=== PATIENT | male | born 1935 | race Caucasian/White ===

== ENCOUNTER 2017-06-04 22:19 | Inpatient (IN) ==
[2017-06-04] MEDS ORDERED: Ipratropium/Albuterol Neb 3 ML IH ONE (22:31)
[2017-06-04] MEDS ORDERED: methylPREDNISolone 125 MG/2 ML VIAL IVP ONE (22:31)
--- NOTE | 2017-06-04 22:31 | Emergency Department Note ---
Disposition Clinical Impression: COPD exacerbation, Elevated troponin Disposition: Admitted As Inpatient Condition: Good [facility]: [facility] Care Provider[facility] - Forms: ED Satisfaction Letter Time of Disposition: 23:46 SOB HPI - General Chief Complaint: ED Shortness of Breath/Dyspnea Stated Complaint: shortness of breath Time Seen by Provider: 06/04/17 22:30 Source: patient Limitations: no limitations Nursing Notes Reviewed: Yes Vital Signs Reviewed: Yes - History of Present Illness 81-year-old male with history of COPD presents to the emergency department with a complaint of acute shortness of breath which started one hour prior to arrival. He was apparently seen here in the emergency department earlier today for the same symptoms. No increased cough or sputum production. No fever. He denies any chest pain. He states he just cannot breathe. He reports that it starts in his upper abdomen and then moved up into his chest making him short of breath. - Related Data Home Medications Medication Instructions Recorded Confirmed Aspirin 81 mg PO QAM 08/08/15 06/04/17 Metoprolol [Lopressor] 25 mg PO BID 08/08/15 06/04/17 Mometasone Furoate [Asmanex Hfa] 1 puff IH BID 08/08/15 06/04/17 Ipratropium/Albuterol Neb [Duoneb] 3 ml IH Q4H PRN 03/13/16 06/04/17 Acitretin [Soriatane] 25 mg PO DAILY 10/27/16 06/04/17 Olodaterol HCl [Striverdi Respimat] 2 puff IH DAILY 10/27/16 06/04/17 Terazosin HCl 2 mg PO HS 10/27/16 06/04/17 Atorvastatin [Lipitor] 10 mg PO HS 06/04/17 06/04/17 Benzocaine/Menthol [Sore Throat 1 each MM BID PRN 06/04/17 06/04/17 Lozenge] Benzonatate [Tessalon] 100 mg PO TID PRN 06/04/17 06/04/17 Clotrimazole [Mycelex Loren] 10 mg MM 5XD 06/04/17 DiphenhydraMINE [Benadryl] 25 mg PO Q8H PRN 06/04/17 06/04/17 LORazepam [Ativan] 0.5 mg PO BID PRN 06/04/17 06/04/17 Levalbuterol [Xopenex INH] 2 puff IH Q6H PRN 06/04/17 06/04/17 Lisinopril [Zestril] 20 mg PO DAILY 06/04/17 06/04/17 MethylPREDNISolone 4 mg PO PER PKG DI 06/04/17 [MethylPREDNISolone Dose Pack] Nitroglycerin [Nitrostat] 0.4 mg SL Q5M PRN 06/04/17 06/04/17 Ranitidine HCl [Zantac] 300 mg PO DAILY 06/04/17 06/04/17 Roflumilast [Daliresp] 500 mcg PO DAILY 06/04/17 06/04/17 Secukinumab [Cosentyx Pen] 300 mg SQ QMONTH 06/04/17 06/04/17 predniSONE [PredniSONE] 5 mg PO DAILY 06/04/17 06/04/17 predniSONE [PredniSONE] See Taper PO DAILY 06/04/17 06/04/17 Allergies Allergy/AdvReac Type Severity Reaction Status Date / Time budesonide [From Symbicort] Allergy Swelling Verified 06/04/17 22:26 of Lip/Tongue/Throat ceftriaxone Allergy See Verified 06/04/17 22:26 Comments codeine Allergy Rash Verified 06/04/17 22:26 levofloxacin Allergy Rash Verified 06/04/17 22:26 moxifloxacin Allergy Anaphylaxis Verified 06/04/17 22:26 tiotropium Allergy Swelling Verified 06/04/17 22:26 [From Spiriva with of HandiHaler] Lip/Tongue/Throat doxycycline AdvReac unable to Verified 06/04/17 22:26 take due to psoriasis medicine All systems ED: reviewed and negative except as stated. Constitutional: Denies: fever Cardiovascular: Denies: chest pain Respiratory: Reports: dyspnea, wheezes. Denies: hemoptysis Gastrointestinal: Reports: abdominal pain. Denies: nausea, vomiting, diarrhea, constipation, hematemesis, melena, hematochezia Genitourinary: Denies: dysuria, frequency Musculoskeletal: Denies: back pain Past Medical History - Past Medical History Medical history: Reports: COPD, hyperlipidemia, hypertension, peripheral artery disease Surgical history: Reports: vascular surgery Psychiatric history: Reports: no psych history - Social History Smoking Status: Former smoker Smokeless Tobacco Status: No Alcohol use: Reports: none Drug use: Reports: none Physical Exam - General Limitations: no limitations General appearance: alert, in distress (Mild respiratory distress) - Head Head exam: atraumatic, normocephalic, normal inspection - Eye Eye exam: Present: normal appearance, PERRL, EOMI. Absent: scleral icterus, conjunctival injection - ENT ENT exam: normal exam, normal oropharynx, mucous membranes moist, TM's normal bilaterally - Neck Neck exam: Present: normal inspection, full ROM, trachea midline. Absent: tenderness, meningismus, lymphadenopathy - Chest Chest inspection: Present: normal inspection, symmetric chest wall rise. Absent : tenderness - Respiratory Respiratory exam: Present: respiratory distress, wheezes (Diffuse tight bilateral expiratory and inspiratory wheezes noted.), accessory muscle use, prolonged expiratory phase - Cardiovascular Cardiovascular exam: Present: regular rate, normal rhythm, normal heart sounds - Abdominal Exam Abdominal exam: Present: soft, tenderness, normal bowel sounds. Absent: distention, guarding, rebound, rigidity Abdominal tenderness: Present: epigastrium, mild - Extremities Exam Extremities exam: Present: normal inspection, full ROM. Absent: tenderness, pedal edema - Back Exam Back exam: Present: normal inspection. Absent: CVA tenderness (R), CVA tenderness (L) - Neurological Exam Neurological exam: Present: alert, oriented X3. Absent: motor sensory deficit - Psychiatric Psychiatric exam: Present: normal affect, normal mood - Skin Skin exam: Present: warm, dry, intact, normal color. Absent: cyanosis, diaphoresis Course Course Narrative: 81-year-old male with history of COPD presents with shortness of breath for one hour prior to arrival. History of similar episodes in the past secondary to COPD. He uses home oxygen as needed. Was here earlier today. No chest pain. Symptoms improved with DuoNeb and Solu-Medrol however patient found to have an elevated troponin. We will admit to the hospitalist. - Consultations Consultation #1: The hospitalist, Dr. Van, was consulted and accepted admission of the patient. Time: 23:30 Vital Signs Temperature 97.9 F 06/04/17 22:23 Pulse Rate 76 06/04/17 22:23 Respiratory Rate 24 06/04/17 22:23 Blood Pressure 171/87 06/04/17 22:23 O2 Sat by Pulse Oximetry 90 06/04/17 22:23 Temperature 97.9 F 06/04/17 22:23 Pulse Rate 66 06/04/17 23:19 Respiratory Rate 22 06/04/17 23:19 Blood Pressure 131/75 06/04/17 23:19 O2 Sat by Pulse Oximetry 94 06/04/17 23:19 Oxygen Delivery Oxygen Delivery Nasal Cannula Shortness of Breath/Dyspnea - Medical Records Medical records reviewed: Yes I reviewed the patient's medical records. - Lab Data Lab results reviewed: Yes I reviewed the patient's lab results. Result diagrams: 06/04/17 22:40 06/04/17 22:40 Lab Results 06/04/17 06/04/17 06/04/17 Range/Units 22:40 22:40 22:40 WBC 9.3 (4.3-11.1) K/mcL RBC 4.31 (4.19-5.50) M/mcL Hgb 13.2 (12.9-16.9) g/dL Hct 40.3 (37.5-50.1) % MCV 93.5 (83.0-100.0) fL MCH 30.6 (28.0-33.3) pg MCHC 32.8 (31.6-35.5) g/dL RDW 14.6 H (11.5-14.5) % Plt Count 238 (140-400) K/mcL MPV 11.1 (9.4-12.4) fL Immature Gran % 0.5 (0-4) % Seg Neutrophils % 73.1 % Lymphocytes % 15.6 % Monocytes % 8.4 % Eosinophils % 1.6 % Basophils % 0.8 % Neutrophils # 6.8 (1.6-8.9) K/mcL Lymphocytes # 1.4 (0.6-4.6) K/mcL Monocytes # 0.8 (0.0-1.3) K/mcL Eosinophils # 0.2 (0.0-0.6) K/mcL Basophils # 0.1 (0.0-0.2) K/mcL Sodium 141 (136-145) mEq/L Potassium 3.7 (3.5-4.5) mEq/L Chloride 108 (98-109) mEq/L Carbon Dioxide 25 (19-29) mEq/L BUN 26 (8-26) mg/dL Creatinine 1.14 (0.72-1.25) mg/dL Est GFR ( Amer) > 60 (> 60) Est GFR (Non-Af Amer) > 60 (> 60) BUN/Creatinine Ratio 23 (6-26) Glucose 60 L (70-99) mg/dL Calculated Osmolality 295 (280-300) Calcium 9.6 (8.6-10.8) mg/dL Troponin I 0.07 H* (0-0.03) ng/mL B-Natriuretic Peptide (0-100) pg/mL 06/04/17 Range/Units 22:40 WBC (4.3-11.1) K/mcL RBC (4.19-5.50) M/mcL Hgb (12.9-16.9) g/dL Hct (37.5-50.1) % MCV (83.0-100.0) fL MCH (28.0-33.3) pg MCHC (31.6-35.5) g/dL RDW (11.5-14.5) % Plt Count (140-400) K/mcL MPV (9.4-12.4) fL Immature Gran % (0-4) % Seg Neutrophils % % Lymphocytes % % Monocytes % % Eosinophils % % Basophils % % Neutrophils # (1.6-8.9) K/mcL Lymphocytes # (0.6-4.6) K/mcL Monocytes # (0.0-1.3) K/mcL Eosinophils # (0.0-0.6) K/mcL Basophils # (0.0-0.2) K/mcL Sodium (136-145) mEq/L Potassium (3.5-4.5) mEq/L Chloride (98-109) mEq/L Carbon Dioxide (19-29) mEq/L BUN (8-26) mg/dL Creatinine (0.72-1.25) mg/dL Est GFR ( Amer) (> 60) Est GFR (Non-Af Amer) (> 60) BUN/Creatinine Ratio (6-26) Glucose (70-99) mg/dL Calculated Osmolality (280-300) Calcium (8.6-10.8) mg/dL Troponin I (0-0.03) ng/mL B-Natriuretic Peptide 85 (0-100) pg/mL - Radiology Data Radiology results reviewed: Yes I reviewed the patient's radiology results. Chest X-Ray 06/04/17 22:31 IMPRESSION: 1. Mild left basilar opacity, could represent atelectasis or consolidation. 2. Otherwise no significant change compared to prior study. 3. Stable mild diffuse interstitial prominence with calcified pleural plaques. D/ / 06/04/2017 23:24:36 Trevor Mccain MD / [email or web address] Interpreting Provider: Trevor Mccain MD - EKG Data EKG attestation: Yes I reviewed and interpreted this EKG. EKG shows normal: Reports: sinus rhythm Rate: Reports: normal Rhythm: Reports: NSR [place]/QRS: Reports: RBBB Interpretation: Reports: no acute changes, unchanged when compared to prior tracing (date) (06-04-17)
[2017-06-04 22:47] LABS: Basophils # 0.1 K/mcL (0.0-0.2); Basophils % 0.8 %; Eosinophils # 0.2 K/mcL (0.0-0.6); Eosinophils % 1.6 %; Hematocrit 40.3 % (37.5-50.1); Hemoglobin 13.2 g/dL (12.9-16.9); Immature Granulocytes % 0.5 % (0-4); Lymphocytes # 1.4 K/mcL (0.6-4.6); Lymphocytes % 15.6 %; Mean Corpuscular HGB Conc 32.8 g/dL (31.6-35.5); Mean Corpuscular Hemoglobin 30.6 pg (28.0-33.3); Mean Corpuscular Volume 93.5 fL (83.0-100.0); Mean Platelet Volume 11.1 fL (9.4-12.4); Monocytes # 0.8 K/mcL (0.0-1.3); Monocytes % 8.4 %; Neutrophils # 6.8 K/mcL (1.6-8.9); Platelet Count 238 K/mcL (140-400); Red Blood Count 4.31 M/mcL (4.19-5.50); Red Cell Distribution Width 14.6 % (11.5-14.5); Segmented Neutrophils % 73.1 %
[2017-06-04 23:01] LABS: BUN/Creatinine Ratio 23 (6-26); Blood Urea Nitrogen 26 mg/dL (8-26); Calcium 9.6 mg/dL (8.6-10.8); Carbon Dioxide 25 mEq/L (19-29); Chloride 108 mEq/L (98-109); Glucose 60 mg/dL (70-99); Osmolality,Calculated 295 (280-300); Potassium 3.7 mEq/L (3.5-4.5); Sodium 141 mEq/L (136-145); eGFR For African Americans > 60 (> 60); eGFR For Non-African Americans > 60 (> 60)
[2017-06-04] MEDS ORDERED: Aspirin 81 MG TAB.CHEW PO STA (23:18)
--- NOTE | 2017-06-05 01:18 | Internal Med History&Physical ---
Date of Encounter: 06/05/17 Time of Encounter: : Assessment and Plan (1) Acute exacerbation of chronic obstructive airways disease Current visit: Yes Status: Acute patient comes in with signs and symptoms concerning for acute worsening of his COPD, he has advanced condition requiring roflumilast and is on chronic oxygen therapy, we will manage with Abx, steroids and nebs (2) Elevated troponin Current visit: Yes Status: Acute he has no chest pain, EKG did not show any acute ischemic changes, this elevation in troponin is most likely related to demand ischemia from his COPD exacerbation, we will repeat in AM and follow symptoms, (3) Hypertension Current visit: Yes Status: Chronic will continue his home medications with BP monitoring Qualifiers: Hypertension type: essential hypertension Qualified Code(s): I10 - Essential (primary) hypertension (4) Psoriasis Current visit: Yes Status: Chronic hx of above and receive immunotherapy, we will defer to outpatient management Internal Medicine - H&P: HPI Chief complaint: shortness of breath Admitted From: Emergency Dept Plans for Post Hospital Care: Home History of present illness: Mr. Ho is a 81 year old male with a history of chronic respiratory failure arising from advanced COPD on 2L/min of home oxygen comes in with shortness of breath. He was in his usual state of health until on 06/04/17 when he had sudden worsening of dyspnea, with associated difficulty catching his breath. He also noticed that his baseline wheezing had gotten worse. His coughing spells and sputum production however remained the same. He denies fever, chills, nausea or vomiting or any prodrome of an illness. He denies any sick contacts. He is an active smoker. He reported to the ER of [place] where he received nebs and left after he felt better only to return because symptoms had persisted. Past Med Surg Social Fam HX - Past Medical History Source: patient, old records reviewed Medical history: COPD, hyperlipidemia, hypertension, peripheral artery disease, other (psoriasis, BPH) Psychiatric history: anxiety - Past Surgical History Surgical History: vascular surgery - Social History Smoking Status: Former smoker Smokeless Tobacco Status: No Alcohol use: none Drug use: none - Family History Brother Name: Seth Ho Living Status: Age at : 83 Cause of : heart problems Hx Family Cardiac Disorders: Yes (5x CABG) Hx Family Respiratory Disorders: No Hx Family Cancer: No Hx Family GI Disorders: No Hx Family Genitourinary Disorders: No Hx Family Endocrine Disorder: No Hx Family Musculoskeletal Disorders: Yes (Back problems) Hx Family Neuromuscular Disorders: No Hx Family Neurologic Disorders: No Hx Family HEENT Disorders: No Hx Family Autoimmune Disorders: No Hx Family Reproductive Disorders: No Hx Family Psychosocial Disorders: No Hx Family Medical Disorders: No Mother Adopted: No Living Status: Hx Family Cardiac Disorders: Yes Father Adopted: No Living Status: Hx Family Cardiac Disorders: Yes (pt unsure of etiology) Sister Adopted: No Living Status: Still Living Hx Family Cancer: Yes (bone ca in shoulder) Internal Medicine - H&P: Meds Aspirin 81 mg PO QAM 08/08/15 [History] Metoprolol [Lopressor] 25 mg PO BID 08/08/15 [History] Mometasone Furoate [Asmanex Hfa] 1 puff IH BID 08/08/15 [History] Ipratropium/Albuterol Neb [Duoneb] 3 ml IH Q4H PRN 03/13/16 [History] Acitretin [Soriatane] 25 mg PO DAILY 10/27/16 [History] Olodaterol HCl [Striverdi Respimat] 2 puff IH DAILY 10/27/16 [History] Terazosin HCl 2 mg PO HS 10/27/16 [History] Atorvastatin [Lipitor] 10 mg PO HS 06/04/17 [History] Benzocaine/Menthol [Sore Throat Lozenge] 1 each MM BID PRN 06/04/17 [History] Benzonatate [Tessalon] 100 mg PO TID PRN 06/04/17 [History] Clotrimazole [Mycelex Loren] 10 mg MM 5XD 06/04/17 [History] DiphenhydraMINE [Benadryl] 25 mg PO Q8H PRN 06/04/17 [History] LORazepam [Ativan] 0.5 mg PO BID PRN 06/04/17 [History] Levalbuterol [Xopenex INH] 2 puff IH Q6H PRN 06/04/17 [History] Lisinopril [Zestril] 20 mg PO DAILY 06/04/17 [History] MethylPREDNISolone [MethylPREDNISolone Dose Pack] 4 mg PO PER PKG DI 06/04/17 [ History] Nitroglycerin [Nitrostat] 0.4 mg SL Q5M PRN 06/04/17 [History] Ranitidine HCl [Zantac] 300 mg PO DAILY 06/04/17 [History] Roflumilast [Daliresp] 500 mcg PO DAILY 06/04/17 [History] Secukinumab [Cosentyx Pen] 300 mg SQ QMONTH 06/04/17 [History] predniSONE [PredniSONE] 5 mg PO DAILY 06/04/17 [History] predniSONE [PredniSONE] See Taper PO DAILY 06/04/17 [History] Allergies budesonide [From Symbicort] Allergy (Verified 06/04/17 22:26) Swelling of Lip/Tongue/Throat ceftriaxone Allergy (Verified 06/04/17 22:26) See Comments codeine Allergy (Verified 06/04/17 22:26) Rash levofloxacin Allergy (Verified 06/04/17 22:26) Rash moxifloxacin Allergy (Verified 06/04/17 22:26) Anaphylaxis tiotropium [From Spiriva with HandiHaler] Allergy (Verified 06/04/17 22:26) Swelling of Lip/Tongue/Throat doxycycline Adverse Reaction (Verified 06/04/17 22:26) unable to take due to psoriasis medicine All Systems PM: A 10-system review of systems was performed and is negative for pertinent findings except as documented above in the HPI. - Constitutional Vitals: Temp Pulse Resp BP Pulse Ox 98.2 F 67 18 172/78 94 06/05/17 00:56 06/05/17 00:56 06/05/17 00:56 06/05/17 00:56 06/05/17 00:56 GENERAL: Elderly male, who looks good for his age, small habitus, lying in bed , Alert, not acutely ill looking HEENT: NC/AT, EOMI, PERRLA, anicteric sclera, normal conjunctiva, supple, clear nares, moist mucous membranes, clear oropharynx, RESP: florid wheeze in all lung kemp with reduced AE, no crackles heard CARDIO: Normal hearts sounds; S1 and 2, RRR with no murmurs, no JVD, no ankle edema GI: Soft abdomen, full, no tenderness, no organomegaly felt, normal bowel sounds heard MUSCULOSKELETAL: grossly normal movements bilaterally, no deformities noted NEUROLOGIC: CN 2-12 intact grossly. No motor/sensory deficit appreciated, PSYCHIATRY: AAO x 3. Mood is fair, SKIN: extensive ecchymotic areas on the bilateral upper extremities and the chest, minimal plaque psoriatic lesion noted Internal Med - H&P Results - Labs CBC & Chem 7: 06/04/17 22:40 06/04/17 22:40 - EKG Data -: EKG Interpreted by Myself EKG shows normal: sinus rhythm - EKG Data Prior EKG available for review: yes When compared to previous EKG: there is no significant change - Diagnostic Studies Chest x-ray Status: image reviewed by me
[2017-06-05] MEDS ORDERED: Naloxone 0.4 MG/ML INJ IVP PRN (01:26)
[2017-06-05] MEDS ORDERED: Acetaminophen 325 MG TABLET PO PRN (01:26)
[2017-06-05] MEDS ORDERED: *HR* LORazepam 0.5 MG TABLET PO PRN (01:28)
[2017-06-05] MEDS ORDERED: Benzonatate 100 MG CAPSULE PO PRN (01:28)
[2017-06-05] MEDS ORDERED: Albuterol 2.5 MG/3 ML NEBULIZER IH PRN (01:29)
[2017-06-05] MEDS: Albuterol 2.5 MG/3 ML NEBULIZER IH SCH ×4 (03:16→15:00)
[2017-06-05] MEDS: Ipratropium Neb 0.5 MG NEBULIZER IH SCH ×4 (03:16→15:00)
[2017-06-05] MEDS ORDERED: *HR* OxyCODONE Immed Rel 5 MG TABLET PO STA (04:41)
[2017-06-05 04:51] LABS: BUN/Creatinine Ratio 24 (6-26); Blood Urea Nitrogen 27 mg/dL (8-26); Calcium 9.5 mg/dL (8.6-10.8); Carbon Dioxide 26 mEq/L (19-29); Chloride 107 mEq/L (98-109); Glucose 165 mg/dL (70-99); Magnesium 1.7 mg/dL (1.6-2.6); Osmolality,Calculated 301 (280-300); Phosphorous 2.4 mg/dL (2.3-4.7); Potassium 3.8 mEq/L (3.5-4.5); Sodium 141 mEq/L (136-145); eGFR For African Americans > 60 (> 60); eGFR For Non-African Americans > 60 (> 60)
[2017-06-05] MEDS ORDERED: MethylPREDNISolone 40 MG/ML VIAL IVP SCH (06:00)
[2017-06-05] MEDS ORDERED: *HR* Enoxaparin 40 MG/0.4 ML SYRINGE SQ SCH (06:00)
[2017-06-05] MEDS ORDERED: Famotidine 20 MG TABLET PO SCH (09:00)
[2017-06-05] MEDS ORDERED: Azithromycin 250 MG TABLET PO SCH (09:00)
[2017-06-05] MEDS ORDERED: ACITRETIN 25 MG PO SCH (09:00)
[2017-06-05] MEDS ORDERED: Lisinopril 20 MG TABLET PO SCH (09:00)
[2017-06-05] MEDS ORDERED: (Roflumilast [Daliresp] 500 MCG) PO SCH (09:00)
[2017-06-05] MEDS ORDERED: Aspirin 81 MG TAB.CHEW PO SCH (09:00)
--- NOTE | 2017-06-05 10:11 | Internal Med Progress Note ---
Date of Encounter: 06/05/17 Time of Encounter: 10:08 - Assessment and plan (1) Acute bronchitis Current Visit: Yes Status: Acute Qualifiers: Qualified Code(s): J20.9 - Acute bronchitis, unspecified (2) Troponin I above reference range Current Visit: Yes Status: Acute (3) Acute exacerbation of chronic obstructive airways disease Current Visit: Yes Status: Acute (4) DVT prophylaxis Current Visit: No Status: Acute (5) Hypertension Current Visit: No Status: Chronic Qualifiers: Qualified Code(s): I10 - Essential (primary) hypertension - Subjective Interval history: Mr. eNno Ho is an 81-year-old male presented with acute exacerbation of COPD and bronchitis. However troponin are noted elevated. Echocardiogram ordered. Patient is on aspirin. He will be continued on IV Zaroxolyn and IV steroid treatment. Patient was seen today. He denies any christiano chest pain however the reason he came in was because he felt a sensation in his throat and later in the epigastrium and all over the substernal area.. Breathing rankin he feels much better now and denies any complaint. He was a drinker and smoker in his days. For several years he has not done either. - Constitutional Vitals: Temp Pulse Resp BP Pulse Ox 97.7 F 82 16 132/73 98 06/05/17 07:00 06/05/17 07:00 06/05/17 09:52 06/05/17 07:00 06/05/17 09:52 - Head Head exam: Present: atraumatic, normocephalic - Eye Eye exam: Present: PERRL, conjuntiva pink, sclera anicteric Pupils: Present: PERRL - Neck Neck exam general surgery: Present: supple, trachea midline. Absent: lymphadenopathy - Respiratory Respiratory exam: Present: decreased breath sounds. Absent: accessory muscle use, rales, rhonchi, wheezes Additional comments: Breath sounds are shallow but no significant wheezing rales or rub. - Cardiovascular Cardiovascular exam: Present: RRR, +S1, +S2. Absent: diastolic murmur, gallop, rubs, systolic murmur - GI/Abdominal GI/Abdominal exam: Present: normal bowel sounds, soft, no peritoneal signs. Absent: distended, tenderness - Extremities Exam Extremities exam: Present: pedal edema, warm, radial pulses palpable and symetrical. Absent: calf tenderness, cyanotic - Neurological Exam Neurological exam: Present: CN II-XII intact, oriented X3, no focal deficits. Absent: pronater drift, facial droop, speech deficit - Skin Skin exam: Present: dry, intact Internal Medicine: Result - Labs CBC & Chem 7: 06/04/17 22:40 06/05/17 04:13 Labs: BMP 06/05/17 04:13 Sodium 141 Potassium 3.8 Chloride 107 Carbon Dioxide 26 BUN 27 H Creatinine 1.11 Glucose 165 H Calcium 9.5 Cardiac Enzymes 06/05/17 Range/Units 04:13 Troponin I 0.05 H* (0-0.03) ng/mL Consult Discharge Plan - Plan [facility]errals: [facility] [Primary Care Provider] -
[2017-06-05 15:35] VITALS: BP 147/79
--- NOTE | 2017-06-07 10:09 | Electrocardiograph Report ---
[place] [id number] Test Date: 2017-06-04 Pat Name: Tanner Ho Department: 102 Room: 3B43 Gender: M [employer]: Roberto : 1935 Requested By: Sánchez Fried Order Number: [id number] Reading MD: Jones Stewart MD Measurements Intervals [place] Rate: 68 P: 68 AL: 160 QRS: 39 QRSD: 148 T: 30 QT: 393 QTc: 410 Interpretive Statements SINUS RHYTHM RIGHT BUNDLE BRANCH BLOCK Electronically Signed On 06-07-2017 10:08:04 EDT by Jones Stewart MD
== END 2017-06-05 16:30 | disposition left against medical advice (07) | DRG 191 ==
LOC: EDBD → EMEROO 22:19 → 3BNU 22:19
PROVIDERS: ADMIT Internal Medicine Endocrinology, Diabetes & Metabolism; ATTEND Registered Nurse

== ENCOUNTER 2017-11-20 11:24 | Inpatient (IN) ==
[2017-11-20] MEDS ORDERED: methylPREDNISolone 125 MG/2 ML VIAL IVP ONE (12:02)
[2017-11-20] MEDS ORDERED: Albuterol 2.5 MG/3 ML NEBULIZER IH ONE (12:03)
--- NOTE | 2017-11-20 12:09 | Emergency Department Note ---
Disposition Clinical Impression: Acute exacerbation of chronic obstructive airways disease, HCAP (healthcare- associated pneumonia) Disposition: Admitted As Inpatient Condition: Good [facility] - Time of Disposition: 14:01 General Adult HPI - General Chief complaint: ED Shortness of Breath/Dyspnea Stated complaint: TILA,Bi-lateral leg swelling,cough,ABD Pain Time Seen by Provider: 11/20/17 11:38 Source: patient Limitations: no limitations Nursing Notes Reviewed: Yes Vital Signs Reviewed: Yes - History of Present Illness HPI Narrative: 82-year-old male who reports onset of shortness of breath with wheezing starting earlier this morning. He has a long history of COPD. He also reports history of lung cancer but he has opted not to do chemotherapy or radiation. Due to significant psoriasis and his COPD he has been on multiple steroids in the past and just recently went off steroids a couple of days ago. Due to the steroids he has had thrush which is almost cleared up. He denies any chest pain. He denies any cardiac history. He denies doing any breathing treatments at home because he said he was too short of breath. Radiation: non-radiation Pain Scale: 0 Consistency: constant Improves with: nothing Worsens with: nothing Associated symptoms: Reports: denies other symptoms Treatments Prior to Arrival: none - Related Data Home Medications Medication Instructions Recorded Confirmed Aspirin 81 mg PO QAM 08/08/15 11/20/17 Metoprolol [Lopressor] 25 mg PO BID 08/08/15 11/20/17 Mometasone Furoate [Asmanex Hfa] 1 puff IH BID 08/08/15 11/20/17 Ipratropium/Albuterol Neb [Duoneb] 3 ml IH Q4H PRN 03/13/16 11/20/17 Olodaterol HCl [Striverdi Respimat] 2 puff IH DAILY 10/27/16 11/20/17 Terazosin HCl 2 mg PO HS 10/27/16 11/20/17 Lisinopril [Zestril] 20 mg PO DAILY 06/04/17 11/20/17 Nitroglycerin [Nitrostat] 0.4 mg SL Q5M PRN 06/04/17 11/20/17 Roflumilast [Daliresp] 500 mcg PO DAILY 06/04/17 11/20/17 Secukinumab [Cosentyx Pen] 300 mg SQ QMONTH 06/04/17 11/20/17 Albuterol Sulfate [Albuterol 2 puff IH Q6HR PRN 07/23/17 11/20/17 Inhaler] Tamsulosin [Flomax] 0.4 mg PO DAILY 07/23/17 11/20/17 Previous Rx's Medication Instructions Recorded predniSONE [PredniSONE] 5 mg PO DAILY 20 Days tablet 09/20/17 Allergies Allergy/AdvReac Type Severity Reaction Status Date / Time budesonide [From Symbicort] Allergy Swelling Verified 06/04/17 22:26 of Lip/Tongue/Throat ceftriaxone Allergy See Verified 06/04/17 22:26 Comments codeine Allergy Rash Verified 06/04/17 22:26 levofloxacin Allergy Rash Verified 06/04/17 22:26 moxifloxacin Allergy Anaphylaxis Verified 06/04/17 22:26 tiotropium Allergy Swelling Verified 06/04/17 22:26 [From Spiriva with of HandiHaler] Lip/Tongue/Throat doxycycline AdvReac unable to Verified 06/04/17 22:26 take due to psoriasis medicine All systems ED: reviewed and negative except as stated. Constitutional: Denies: fever Cardiovascular: Denies: chest pain Respiratory: Reports: cough, dyspnea Gastrointestinal: Denies: abdominal pain Musculoskeletal: Denies: back pain Neurological: Denies: headache Past Medical History - Past Medical History Medical history: Reports: asthma, cancer, COPD, GERD, hyperlipidemia, hypertension, peripheral artery disease, other Surgical history: Reports: vascular surgery Psychiatric history: Reports: anxiety - Social History Smoking Status: Former smoker Smokeless Tobacco Status: No Alcohol use: Reports: none Drug use: Reports: none Physical Exam - General Limitations: no limitations General appearance: alert, in no apparent distress - Head Head exam: atraumatic - Eye Eye exam: Present: normal appearance, PERRL - ENT ENT exam: normal exam, normal oropharynx - Neck Neck exam: Present: normal inspection - Chest Chest inspection: Present: normal inspection - Respiratory Respiratory exam: Present: other (Significant expiratory wheezes present. No respiratory distress). Absent: accessory muscle use - Cardiovascular Cardiovascular exam: Present: regular rate, normal rhythm - Abdominal Exam Abdominal exam: Present: soft, Non-Tender - Extremities Exam Extremities exam: Present: normal inspection - Neurological Exam Neurological exam: Present: alert, oriented X3 - Skin Skin exam: Present: warm, dry Course Course Narrative: He feels significant relief after steroids and breathing treatments. However he had a admission just 2 months ago and has pneumonia seen on his chest x-ray. Due to this only to treat him for healthcare associated pneumonia with vancomycin, Zosyn, Levaquin. He previously did have Zosyn and tolerated it. His EKG shows a single change in only lead V2. No other leads have any significant changes. He also does not have any chest pain negative troponin. We will admit for COPD exacerbation with pneumonia Vital Signs Temperature 98.1 F 11/20/17 11:28 Pulse Rate 67 11/20/17 11:28 Respiratory Rate 18 11/20/17 11:28 Blood Pressure 135/81 11/20/17 11:28 O2 Sat by Pulse Oximetry 97 11/20/17 11:28 Temperature 98.1 F 11/20/17 11:28 Pulse Rate 67 11/20/17 11:28 Respiratory Rate 20 11/20/17 13:40 Blood Pressure 135/81 11/20/17 11:28 O2 Sat by Pulse Oximetry 97 11/20/17 13:40 Oxygen Delivery Oxygen Delivery Room Air Medical Decision Making - Medical Records Medical records reviewed: Yes I reviewed the patient's medical records. - Lab Data Lab results reviewed: Yes I reviewed the patient's lab results. Result diagrams: 11/20/17 12:31 11/20/17 12:31 Lab Results 11/20/17 11/20/17 11/20/17 Range/Units 12:31 12:31 12:31 WBC 9.8 (4.3-11.1) K/mcL RBC 3.72 L (4.19-5.50) M/mcL Hgb 11.2 L (12.9-16.9) g/dL Hct 35.5 L (37.5-50.1) % MCV 95.4 (83.0-100.0) fL MCH 30.1 (28.0-33.3) pg MCHC 31.5 L (31.6-35.5) g/dL RDW 15.0 H (11.5-14.5) % Plt Count 254 (140-400) K/mcL MPV 11.7 (9.4-12.4) fL Immature Gran % 1.0 (0-4) % Seg Neutrophils % 77.5 % Lymphocytes % 11.3 % Monocytes % 7.5 % Eosinophils % 2.2 % Basophils % 0.5 % Neutrophils # 7.6 (1.6-8.9) K/mcL Lymphocytes # 1.1 (0.6-4.6) K/mcL Monocytes # 0.7 (0.0-1.3) K/mcL Eosinophils # 0.2 (0.0-0.6) K/mcL Basophils # 0.1 (0.0-0.2) K/mcL Sodium 142 (136-145) mEq/L Potassium 3.6 (3.5-5.1) mEq/L Chloride 108 H (98-107) mEq/L Carbon Dioxide 30 H (23-29) mEq/L BUN 30 H (8-23) mg/dL Creatinine 0.86 (0.70-1.30) mg/dL Est GFR ( Amer) > 60 (> 60) Est GFR (Non-Af Amer) > 60 (> 60) BUN/Creatinine Ratio 35 H (6-26) Glucose 87 (70-105) mg/dL Calculated Osmolality 300 (280-300) Lactic Acid (0.5-2.2) mmol/L Calcium 8.9 (8.6-10.3) mg/dL Troponin I 0.03 (< 0.04) ng/mL 11/20/17 Range/Units 12:31 WBC (4.3-11.1) K/mcL RBC (4.19-5.50) M/mcL Hgb (12.9-16.9) g/dL Hct (37.5-50.1) % MCV (83.0-100.0) fL MCH (28.0-33.3) pg MCHC (31.6-35.5) g/dL RDW (11.5-14.5) % Plt Count (140-400) K/mcL MPV (9.4-12.4) fL Immature Gran % (0-4) % Seg Neutrophils % % Lymphocytes % % Monocytes % % Eosinophils % % Basophils % % Neutrophils # (1.6-8.9) K/mcL Lymphocytes # (0.6-4.6) K/mcL Monocytes # (0.0-1.3) K/mcL Eosinophils # (0.0-0.6) K/mcL Basophils # (0.0-0.2) K/mcL Sodium (136-145) mEq/L Potassium (3.5-5.1) mEq/L Chloride (98-107) mEq/L Carbon Dioxide (23-29) mEq/L BUN (8-23) mg/dL Creatinine (0.70-1.30) mg/dL Est GFR ( Amer) (> 60) Est GFR (Non-Af Amer) (> 60) BUN/Creatinine Ratio (6-26) Glucose (70-105) mg/dL Calculated Osmolality (280-300) Lactic Acid 1.1 (0.5-2.2) mmol/L Calcium (8.6-10.3) mg/dL Troponin I (< 0.04) ng/mL - Radiology Data Radiology results reviewed: Yes I reviewed the patient's radiology results. - EKG Data EKG #1 EKG attestation: Yes I reviewed and interpreted this EKG. EKG shows normal: sinus rhythm Rhythm: NSR Leverett/QRS: RBBB When compared to previous EKG there are: no significant changes Interpretation: no acute changes Attestation Statement - Attestation Attestation: I, Ricky Martinez DO, examined this patient [id number] and my medical decision-making was reviewed with (Dr. Xavier Bateman, Resident Physician. I agree with the documented findings, disposition and treatment plan as described except to the extent set forth below. Please see my progress notes for details. 82-year-old male presents to emergency room for evaluation of cough congestion and discomfort. Vital signs on presentation were unremarkable. Patient is afebrile. He does have a long-standing history of COPD. Symptomatically treatment for COPD exacerbation started with breathing treatments and steroids secondary to diffuse wheezing. Patient does have some accessory muscle use. Denies any productive sputum or fever but he has been coughing more over the last several days. Head is atraumatic pupils are nonreactive initial muscles are intact. Lungs are diffusely wheezy. heart is regular abdomen is soft nontender nondistended no guarding no rigidity. No peritoneal symptoms over this time. Patient is resting in the bed at this time. Breathing treatments medications given. CT of the chest show what appears to be multifocal pneumonia. Abdominal examination is otherwise unremarkable. Patient does have a mildly elevated white blood cell count. He will be admitted for COPD exacerbation with what appears to be bilateral pneumonia. Antibiotics started this time for healthcare acquired pneumonia. Evaluation completed hospitals contacted. Otherwise his workup and evaluation are unremarkable. EKG shows chronic abnormalities compared to multiple EKGs over the last year. See detailed documentation of physical exam, medical intervention, medical decision- making and disposition in the resident physician's note
[2017-11-20 12:44] LABS: Basophils # 0.1 K/mcL (0.0-0.2); Basophils % 0.5 %; Eosinophils # 0.2 K/mcL (0.0-0.6); Eosinophils % 2.2 %; Hematocrit 35.5 % (37.5-50.1); Hemoglobin 11.2 g/dL (12.9-16.9); Lymphocytes # 1.1 K/mcL (0.6-4.6); Lymphocytes % 11.3 %; Mean Corpuscular HGB Conc 31.5 g/dL (31.6-35.5); Mean Corpuscular Hemoglobin 30.1 pg (28.0-33.3); Mean Corpuscular Volume 95.4 fL (83.0-100.0); Mean Platelet Volume 11.7 fL (9.4-12.4); Monocytes # 0.7 K/mcL (0.0-1.3); Monocytes % 7.5 %; Neutrophils # 7.6 K/mcL (1.6-8.9); Platelet Count 254 K/mcL (140-400); Red Blood Count 3.72 M/mcL (4.19-5.50); Segmented Neutrophils % 77.5 %
[2017-11-20 12:58] LABS: BUN/Creatinine Ratio 35 (6-26); Blood Urea Nitrogen 30 mg/dL (8-23); Calcium 8.9 mg/dL (8.6-10.3); Carbon Dioxide 30 mEq/L (23-29); Chloride 108 mEq/L (98-107); Glucose 87 mg/dL (70-105); Osmolality,Calculated 300 (280-300); Potassium 3.6 mEq/L (3.5-5.1); Sodium 142 mEq/L (136-145); eGFR For African Americans > 60 (> 60); eGFR For Non-African Americans > 60 (> 60)
[2017-11-20] MEDS ORDERED: Piperacillin/Tazobactam 3.375 GM in Water for inj. (sterile) 20 ML IVP ONE (13:29)
[2017-11-20] MEDS ORDERED: Vancomycin 1,000 MG in D5% in Water 250 ML IVPB ONE (13:29)
[2017-11-20] MEDS ORDERED: Levofloxacin 750 MG/150 ML 750 MG/150 ML BAG IVPB ONE (13:34)
[2017-11-20] MEDS ORDERED: Ondansetron 4 MG/2 ML VIAL IVP PRN (14:51)
[2017-11-20] MEDS ORDERED: Acetaminophen 325 MG TABLET PO PRN (14:51)
[2017-11-20] MEDS ORDERED: Naloxone 0.4 MG/ML INJ IVP PRN (14:56)
[2017-11-20] MEDS ORDERED: Vancomycin 1,000 MG in D5% in Water 250 ML IVPB SCH (15:00)
[2017-11-20] MEDS ORDERED: Nitroglycerin 0.4 MG TAB.SUBL SL PRN (15:03)
--- NOTE | 2017-11-20 15:11 | Internal Med History&Physical ---
Date of Encounter: 11/20/17 Time of Encounter: 14:00 Assessment and Plan (1) Acute exacerbation of chronic obstructive airways disease Current visit: Yes Status: Acute Acute exacerbation of COPD currently complicated by HCAP. Pt. reports chronic SOB d/t COPD, but dyspnea became worse this morning at 8:15 a.m. Pt. reports home O2 use but denies BiPap or CPAP use. Supplemental o2 w/titration and SpO2 monitoring. DuoNebs Q6 scheduled. Solumedrol 40 mg Q8. Continuous cardiac telemetry. Pt. to be monitored closely for signs of increasing infection and/or respiratory distress d/t dual respiratory dx. Pt. discussed w/Dr. Gonzáles who agrees w/plan of care. Pt. is at high risk for further morbidity, infection, and respiratory distress based on current exacerbation of COPD complicated by HCAP. Inpatient. (2) HCAP (healthcare-associated pneumonia) Current visit: Yes Status: Acute Acute HCAP. Pt. was admitted to hospital 2 months ago. Pt. allergic to levaquin. IVPB vancomycin and Zosyn administered in the ED. Will continue IVPB Zosyn 3.375 gm Q8 and vancomycin w/pharmacy dosing for infection coverage. Blood cultures x2. Sputum culture. Legionella and strep pneumoniae antigens ordered. Supplemental O2 w/titration and SpO2 monitoring. DuoNebs Q6 scheduled. Mucinex DM for cough. Patient does not currently meet sepsis criteria. Initial lactic acid 1.1. Will adjust abx coverage based on culture results. Monitor pt. and f/u labs. (3) Shortness of breath Current visit: Yes Status: Chronic Acute on chronic SOB/dyspnea related to long-term COPD dx, current exacerbation of COPD, and pneumonia dx. Supplemental O2 w/titration and SpO2 monitoring. DuoNebs Q6 scheduled. Will continue pts. inhalers. Mucinex DM for cough. (4) Anemia Current visit: Yes Status: Chronic Hx of chronic anemia. Pts. current Hgb is 11.2 and Hct is 35.5 which is at or above his recent baseline. Pt. denies unusual bleeding. H/H in a.m. labs. Qualifiers: Anemia type: unspecified type Qualified Code(s): D64.9 - Anemia, unspecified (5) GERD (gastroesophageal reflux disease) Current visit: No Status: Chronic Hx of chronic GERD. Pt. reports nausea and abdominal pain. IVP Zofran 4 mg Q8 PRN. IVP Protonix 40 mg daily. Qualifiers: Esophagitis presence: esophagitis presence not specified Qualified Code(s) : K21.9 - Gastro-esophageal reflux disease without esophagitis (6) HTN (hypertension) Current visit: Yes Status: Chronic Hx of chronic HTN. Monitor pt. and VS. continue patient's terazosin, lisinopril , and metoprolol. Qualifiers: Hypertension type: essential hypertension Qualified Code(s): I10 - Essential (primary) hypertension (7) HLD (hyperlipidemia) Current visit: Yes Status: Chronic Hx of chronic HLD. Lipid panel in a.m. labs. Pt. reports he is not taking statin currently. Will add Lipitor if warranted by lipid panel results. Qualifiers: Hyperlipidemia type: pure hypercholesterolemia Qualified Code(s): E78.00 - Pure hypercholesterolemia, unspecified; E78.0 - Pure hypercholesterolemia (8) Lung cancer Current visit: Yes Status: Chronic Hx of lung cancer. Pt. states that he decided not to take chemotherapy or radiation tx. Pt. was a long-term smoker and states he began when in the [place], smoked 1 PPD, and quit 7 years ago. Qualifiers: Laterality: unspecified laterality Lung location: unspecified part of lung Qualified Code(s): C34.90 - Malignant neoplasm of unspecified part of unspecified bronchus or lung (9) DVT prophylaxis Current visit: Yes Status: Acute Heparin 5,000 units SQ Q8 for DVT prophylaxis. Monitor pt. for signs of bleeding. Internal Medicine - H&P: HPI Chief complaint: SOB/Dyspnea Admitted From: Emergency Dept Plans for Post Hospital Care: Home History of present illness: Mr. Ho is a 82 year old male with medical hx of asthma, lung cancer for which she has chosen not to take any current chemotherapy or radiation, COPD, GERD, HLD, HTN, and PAD reports from the ED with chief complaint of shortness of breath and dyspnea since 8:15 AM this morning. Patient states he normally uses O2 when necessary at home at night but had to use his oxygen more frequently today. Patient also reports cough with sputum production, abdominal pain w/nausea, and bilateral pedal edema. Patient denies recent illness, fever , chills, vomiting, headache, changes in vision, chest pain, palpitations, unusual bleeding, back pain, dizziness, lightheadedness, weakness, numbness, tingling, pre-syncope, or syncope. Past Med Surg Social Fam HX - Past Medical History Source: patient, old records reviewed Medical history: asthma, cancer (Lung cancer. Pt. reports he decided not to take chemotherapy or radiation tx.), COPD, GERD, hyperlipidemia, hypertension, peripheral artery disease, other Psychiatric history: anxiety - Past Surgical History Surgical History: vascular surgery - Social History Smoking Status: Former smoker Packs per day: 1 PPD - Reports quitting 7 years ago Smokeless Tobacco Status: No Alcohol use: none Drug use: none Current living situation: Home Activity Level: Uses cane/walker Recent Out of Country Travel Within the Last 8 Weeks: No Exposure or Possible Exposure to Illness During Travel: No - Family History Brother Race: Family Member Ethnicity: Non- Living Status: Age at : 83 Cause of : CAD Hx Family Cardiac Disorders: Yes (5x CABG, CAD, HTN, HLD) Mother Adopted: No Race: Family Member Ethnicity: Non- Living Status: Age at : 42 Cause of : CHF Hx Family Cardiac Disorders: Yes (CHF) Father Adopted: No Race: Family Member Ethnicity: Non- Living Status: Age at : 88 Cause of : Stroke Hx Family Cardiac Disorders: Yes (Stroke) Sister Adopted: No Race: Family Member Ethnicity: Non- Living Status: Age at : 79 Cause of : Cancer (Melanoma) Hx Family Cancer: Yes (Melanoma) Internal Medicine - H&P: Meds Aspirin 81 mg PO QAM 08/08/15 [History] Metoprolol [Lopressor] 25 mg PO BID 08/08/15 [History] Mometasone Furoate [Asmanex Hfa] 1 puff IH BID 08/08/15 [History] Ipratropium/Albuterol Neb [Duoneb] 3 ml IH Q4H PRN 03/13/16 [History] Olodaterol HCl [Striverdi Respimat] 2 puff IH DAILY 10/27/16 [History] Terazosin HCl 2 mg PO HS 10/27/16 [History] Lisinopril [Zestril] 20 mg PO DAILY 06/04/17 [History] Nitroglycerin [Nitrostat] 0.4 mg SL Q5M PRN 06/04/17 [History] Roflumilast [Daliresp] 500 mcg PO DAILY 06/04/17 [History] Secukinumab [Cosentyx Pen] 300 mg SQ QMONTH 06/04/17 [History] Albuterol Sulfate [Albuterol Inhaler] 2 puff IH Q6HR PRN 07/23/17 [History] Tamsulosin [Flomax] 0.4 mg PO DAILY 07/23/17 [History] predniSONE [PredniSONE] 5 mg PO DAILY 20 Days tablet 09/20/17 [Rx] 3 Allergy/AdvReac Type Severity Reaction Status Date / Time budesonide [From Symbicort] Allergy Swelling Verified 06/04/17 22:26 of Lip/Tongue/Throat ceftriaxone Allergy See Verified 06/04/17 22:26 Comments codeine Allergy Rash Verified 06/04/17 22:26 levofloxacin Allergy Rash Verified 06/04/17 22:26 moxifloxacin Allergy Anaphylaxis Verified 06/04/17 22:26 tiotropium Allergy Swelling Verified 06/04/17 22:26 [From Spiriva with of HandiHaler] Lip/Tongue/Throat doxycycline AdvReac unable to Verified 06/04/17 22:26 take due to psoriasis medicine All Systems PM: A 10-system review of systems was performed and is negative for pertinent findings except as documented above in the HPI. - Constitutional Constitutional: no chills, no fever(s), no night sweats - EENT Eyes: no change in vision, no discharge, no pain, no photophobia Ears: no ear discharge, no ear pain, no tinnitus Nose, mouth and throat: no dysphagia, no nasal discharge, no neck pain, no sore throat - Breasts Breasts: as per HPI - Cardiovascular Cardiovascular ROS IM: as per HPI, dyspnea, dyspnea on exertion, edema ( Bilateral pedal edema) - Respiratory Respiratory: as per HPI, cough, dyspnea, dyspnea on exertion, wheezing - Gastrointestinal Gastrointestinal: as per HPI, abdominal pain, nausea, no diarrhea, no hematemesis, no hematochezia, no melena, no vomiting - Genitourinary Genitourinary ROS male: as per HPI - Musculoskeletal Musculoskeletal ROS IM: no numbness, no tingling - Integumentary Integumentary IM: no rash, no unusual bruising - Neurological Neurological ROS: no confusion, no convulsions, no focal weakness, no numbness, no tingling, no tremor(s) - Psychiatric Psychiatric: as per HPI - Endocrine Endocrine IM: as per HPI - Hematologic/Lymphatic Hematologic/Lymphatic: no easy bruising - Allergic/Immunologic Allergic/Immunologic: as per HPI - Constitutional Vitals: Temp Pulse Resp BP Pulse Ox 98.1 F 76 25 178/88 93 11/20/17 11:28 11/20/17 14:24 11/20/17 14:38 11/20/17 14:38 11/20/17 14:24 General appearance: Present: cooperative, mild distress (Respiratory), A&O X 3, pleasant, answers questions appropriately - Head Head exam: Present: atraumatic, normal inspection, normocephalic - Eye Eye exam: Present: PERRL, conjuntiva pink, sclera anicteric Pupils: Present: PERRL - ENT ENT exam: Present: normal exam - Neck Neck exam general surgery: Present: normal inspection, supple, trachea midline. Absent: lymphadenopathy - Respiratory Respiratory exam: Present: accessory muscle use, wheezes (Bilateral w/KAMAR worse) - Cardiovascular Cardiovascular exam: Present: RRR, +S1, +S2. Absent: diastolic murmur, gallop, rubs, systolic murmur - GI/Abdominal GI/Abdominal exam: Present: normal bowel sounds, soft, no peritoneal signs. Absent: distended, tenderness - Rectal Rectal exam: Present: deferred - Additional comments: exam deferred. - Extremities Exam Extremities exam: Present: pedal edema, warm, radial pulses palpable and symmetrical. Absent: calf tenderness, cyanotic - Back Exam Back exam: Present: normal inspection - Neurological Exam Neurological exam: Present: CN II-XII intact, oriented X3, no focal deficits. Absent: pronater drift, facial droop, speech deficit - Psychiatric Psychiatric exam: Present: normal affect, normal mood - Skin Skin exam: Present: dry, intact Internal Med - H&P Results - Labs CBC & Chem 7: 11/20/17 12:31 11/20/17 12:31 - EKG Data EKG shows normal: sinus rhythm - EKG Data Prior EKG available for review: yes EKG comments: 11/20/17 15:21 EKG dated 09/16/17 shows sinus tachycardia with right bundle branch block. EKG dated 11/20/17 shows sinus rhythm with right bundle branch block. - Diagnostic Studies Chest x-ray Additional comments: Impressions Chest X-Ray 11/20/17 12:02 IMPRESSION: Bilateral pulmonary ground-glass opacities possibly representing atypical infection D/ / Danny Jennings MD / Danny Jennings MD Interpreting Provider: Danny Jennings MD
[2017-11-20] MEDS ORDERED: SECUKINUMAB 300 MG SQ SCH (15:15)
[2017-11-20] MEDS ORDERED: Pantoprazole 40 MG VIAL IVP SCH (15:30)
[2017-11-20] MEDS: Levalbuterol Neb 1.25 MG/3 ML IH SCH ×3 (16:42→21:27)
[2017-11-20] MEDS: MethylPREDNISolone 40 MG/ML VIAL IVP SCH ×2 (16:46→23:50)
[2017-11-20] MEDS: *HR* Heparin 5,000 UNIT/ML VIAL SQ SCH ×2 (16:47→23:49)
[2017-11-20] MEDS ORDERED: GuaiFENesin/Dextromethorphan TABLET PO SCH (21:00)
[2017-11-20] MEDS ORDERED: Beclomethasone 40mcg MDI IH SCH (22:00)
[2017-11-20] MEDS: Piperacillin/Tazobactam 3.375 GM/200 ML BAG IVPB SCH (22:23)
[2017-11-21] MEDS: Levalbuterol Neb 1.25 MG/3 ML IH SCH (01:38)
[2017-11-21] MEDS ORDERED: Vancomycin 1,000 MG in D5% in Water 250 ML IVPB SCH (02:00)
[2017-11-21 03:40] LABS: Basophils % 0.3 %; Hematocrit 33.6 % (37.5-50.1); Hemoglobin 10.7 g/dL (12.9-16.9); Immature Granulocytes % 1.2 % (0-4); Lymphocytes # 0.5 K/mcL (0.6-4.6); Lymphocytes % 7.3 %; Mean Corpuscular HGB Conc 31.8 g/dL (31.6-35.5); Mean Corpuscular Hemoglobin 29.7 pg (28.0-33.3); Mean Corpuscular Volume 93.3 fL (83.0-100.0); Mean Platelet Volume 12.1 fL (9.4-12.4); Monocytes # 0.1 K/mcL (0.0-1.3); Monocytes % 1.7 %; Neutrophils # 6.5 K/mcL (1.6-8.9); Platelet Count 220 K/mcL (140-400); Red Cell Distribution Width 14.8 % (11.5-14.5); Segmented Neutrophils % 89.5 %
[2017-11-21] MEDS ORDERED: Levalbuterol Neb 1.25 MG/3 ML IH PRN (04:00)
[2017-11-21 04:03] LABS: Alanine Aminotransferase 15 Units/L (7-52); Albumin 2.9 g/dL (3.5-5.7); Albumin/Globulin Ratio 1.6 (1.1-2.2); Alkaline Phosphatase 57 Units/L (34-104); Aspartate Amino Transferase 12 Units/L (13-39); BUN/Creatinine Ratio 29 (6-26); Bilirubin,Total 0.6 mg/dL (0.3-1.0); Blood Urea Nitrogen 32 mg/dL (8-23); Calcium 8.7 mg/dL (8.6-10.3); Carbon Dioxide 30 mEq/L (23-29); Chloride 106 mEq/L (98-107); Cholesterol 164 mg/dL (< 200); Globulin 1.8 g/dL (2.4-3.5); Glucose 127 mg/dL (70-105); Magnesium 1.7 mg/dL (1.6-2.6); Osmolality,Calculated 296 (280-300); Potassium 4.1 mEq/L (3.5-5.1); Sodium 139 mEq/L (136-145); Total Protein 4.7 g/dL (6.4-8.9); Triglycerides 73 mg/dL (< 150); eGFR For African Americans > 60 (> 60); eGFR For Non-African Americans > 60 (> 60)
[2017-11-21 04:50] LABS: Chol/HDL Ratio 3.5 (0-4.9); HDL Cholesterol 47 mg/dL (40-59); LDL Cholesterol,Calculated 102 mg/dL (0-99)
[2017-11-21] MEDS: Piperacillin/Tazobactam 3.375 GM/200 ML BAG IVPB SCH (05:09)
[2017-11-21] MEDS ORDERED: Lisinopril 20 MG TABLET PO SCH (09:00)
[2017-11-21] MEDS ORDERED: (Olodaterol Hcl [Striverdi Respimat] 2 PUFF) IH SCH (09:00)
[2017-11-21] MEDS ORDERED: Aspirin 81 MG TAB.CHEW PO SCH (09:00)
[2017-11-21] MEDS ORDERED: (Roflumilast [Daliresp] 500 MCG) PO SCH (09:00)
[2017-11-21 09:33] VITALS: BP 155/70
--- NOTE | 2017-11-21 10:51 | Discharge Summary ---
Date of Encounter: 11/22/17 Time of Encounter: 10:49 - Discharge Diagnosis (1) Acute exacerbation of chronic obstructive airways disease Priority: Primary Status: Acute (2) Lung cancer Priority: Secondary Status: Chronic Qualifiers: Laterality: unspecified laterality Lung location: unspecified part of lung Qualified Code(s): C34.90 - Malignant neoplasm of unspecified part of unspecified bronchus or lung (3) CKD (chronic kidney disease) stage 3, GFR 30-59 ml/min Priority: Secondary Status: Acute (4) DVT prophylaxis Priority: Secondary Status: Acute - Discharge Medications Home Medications: Aspirin 81 mg PO QAM 08/08/15 [History] Metoprolol [Lopressor] 25 mg PO BID 08/08/15 [History] Mometasone Furoate [Asmanex Hfa] 1 puff IH BID 08/08/15 [History] Ipratropium/Albuterol Neb [Duoneb] 3 ml IH Q4H PRN 03/13/16 [History] Olodaterol HCl [Striverdi Respimat] 2 puff IH DAILY 10/27/16 [History] Terazosin HCl 2 mg PO HS 10/27/16 [History] Lisinopril [Zestril] 20 mg PO DAILY 06/04/17 [History] Nitroglycerin [Nitrostat] 0.4 mg SL Q5M PRN 06/04/17 [History] Roflumilast [Daliresp] 500 mcg PO DAILY 06/04/17 [History] Secukinumab [Cosentyx Pen] 300 mg SQ QMONTH 06/04/17 [History] Albuterol Sulfate [Albuterol Inhaler] 2 puff IH Q6HR PRN 07/23/17 [History] Tamsulosin [Flomax] 0.4 mg PO DAILY 07/23/17 [History] predniSONE [PredniSONE] 5 mg PO DAILY 20 Days tablet 09/20/17 [Rx] Allergies/Adverse Reactions: 3 Allergy/AdvReac Type Severity Reaction Status Date / Time budesonide [From Symbicort] Allergy Swelling Verified 06/04/17 22:26 of Lip/Tongue/Throat ceftriaxone Allergy See Verified 06/04/17 22:26 Comments codeine Allergy Rash Verified 06/04/17 22:26 levofloxacin Allergy Rash Verified 06/04/17 22:26 moxifloxacin Allergy Anaphylaxis Verified 06/04/17 22:26 tiotropium Allergy Swelling Verified 06/04/17 22:26 [From Spiriva with of HandiHaler] Lip/Tongue/Throat doxycycline AdvReac unable to Verified 06/04/17 22:26 take due to psoriasis medicine Date of admission: 11/20/17 14:51 Primary care physician: PCP KELLEY Discharging clinician: Poli Vidal - Patient Status Disposition: Left Against Medical Advice Condition: Good Functional capacity at discharge: uses cane/walker Overall status at discharge: patient is progressing back to baseline - Discharge Instructions [facility] Care Provider[facility] - Bladimir Donahue MD [Partnered Physician] - Forms: ED Satisfaction Letter - Diet and Activity Activity: increase activity as tolerated Diet: low fat, low cholesterol, low salt diet Interval History: Mr. Ho is a 82 year old male with medical hx of asthma, lung cancer for which she has chosen not to take any current chemotherapy or radiation, COPD, GERD, HLD, HTN, and PAD reports from the ED with chief complaint of shortness of breath and dyspnea since 8:15 AM this morning. Patient states he normally uses O2 when necessary at home at night but had to use his oxygen more frequently today. Patient also reports cough with sputum production, abdominal pain w/nausea, and bilateral pedal edema. Patient denies recent illness, fever , chills, vomiting, headache, changes in vision, chest pain, palpitations, unusual bleeding, back pain, dizziness, lightheadedness, weakness, numbness, tingling, pre-syncope, or syncope. Hospital course: Patient was hospitalized yesterday. This morning I went to examine this patient along with the RN Nancy. Patient is a ( [place]). We thank him for his services. Patient is already on Zosyn through the home health services antibiotics. Patient feels that he is back to his baseline and is not keen to stay in the hospital for any further treatment as this is a [place] dereje. Patient is keen to go home. Upon my assessment/examination: Patient is extremely dyspneic and with polyphonic rhonchi/wheezing all over. I discussed with the patient that it is not safe for him to go home in this condition but patient was persistent and he decided to leave the hospital AGAINST MEDICAL ADVICE. I have given patient prescription for prednisone 40 mg for 5 days. Patient is already on dual antibiotics through home health and patient does have inhaled steroids as well as bronchodilators. I will update his pulmonology/primary care regarding close follow-up after [place]. I sent email to Dr Piña regarding same. - Time Spent with Patient Total time spent providing and/or coordinating discharge services: - Constitutional Vitals: Temp Pulse Resp BP Pulse Ox 97.9 F 77 18 155/70 96 11/21/17 07:10 11/21/17 07:10 11/21/17 07:10 11/21/17 07:10 11/21/17 07:10 General appearance: Present: cooperative, mild distress (Respiratory), A&O X 3, pleasant, answers questions appropriately - Head Head exam: Present: atraumatic, normocephalic - Eye Eye exam: Present: PERRL, conjuntiva pink, sclera anicteric Pupils: Present: PERRL - Neck Neck exam general surgery: Present: supple, trachea midline. Absent: lymphadenopathy - Respiratory Respiratory exam: Present: CTAB, rhonchi, wheezes. Absent: accessory muscle use , rales - Cardiovascular Cardiovascular exam: Present: RRR, +S1, +S2. Absent: diastolic murmur, gallop, rubs, systolic murmur - GI/Abdominal GI/Abdominal exam: Present: normal bowel sounds, soft, no peritoneal signs. Absent: distended, tenderness - Extremities Exam Extremities exam: Present: warm, radial pulses palpable and symmetrical. Absent : calf tenderness, cyanotic, pedal edema - Neurological Exam Neurological exam: Present: CN II-XII intact, oriented X3, no focal deficits. Absent: pronater drift, facial droop, speech deficit - Skin Skin exam: Present: dry, intact
--- NOTE | 2017-11-23 15:55 | Electrocardiograph Report ---
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
--- NOTE | 2017-11-23 15:57 | Electrocardiograph Report ---
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
== END 2017-11-21 08:49 | disposition left against medical advice (07) | DRG 190 ==
LOC: 3BNU 11:24 → EMEROO 11:24 → 3BNU 13:58
PROVIDERS: ADMIT Internal Medicine Nephrology; ATTEND Registered Nurse

== ENCOUNTER 2017-12-01 08:14 | Inpatient (IN) ==
[2017-12-01] MEDS ORDERED: 0.9 % Sodium Chloride 1,000 ML IVC ONE ×3 (08:19→14:03)
[2017-12-01] MEDS ORDERED: methylPREDNISolone 125 MG/2 ML VIAL IVP ONE (08:20)
[2017-12-01 08:44] LABS: INR 1.1; Prothrombin Time 11.5 Seconds (9.4-12.1)
[2017-12-01 08:45] LABS: Basophils % 0.3 %; Hematocrit 38.5 % (37.5-50.1); Hemoglobin 12.5 g/dL (12.9-16.9); Immature Granulocytes % 0.6 % (0-4); Lymphocytes # 1.3 K/mcL (0.6-4.6); Lymphocytes % 12.2 %; Mean Corpuscular HGB Conc 32.5 g/dL (31.6-35.5); Mean Corpuscular Hemoglobin 30.1 pg (28.0-33.3); Mean Corpuscular Volume 92.8 fL (83.0-100.0); Mean Platelet Volume 12.3 fL (9.4-12.4); Monocytes # 0.7 K/mcL (0.0-1.3); Monocytes % 6.7 %; Neutrophils # 8.4 K/mcL (1.6-8.9); Platelet Count 189 K/mcL (140-400); Red Blood Count 4.15 M/mcL (4.19-5.50); Red Cell Distribution Width 15.5 % (11.5-14.5); Segmented Neutrophils % 80.2 %
[2017-12-01] MEDS ORDERED: Calcium Gluconate 1,000 MG in D5% in Water 100 ML IVPB ONE (08:46)
[2017-12-01 08:47] LABS: Activated Partial Thrombo Time 28.5 Seconds (26.0-36.0)
[2017-12-01] MEDS: dilTIAZem HCl 100 MG in D5% in Water 50 ML IVC SCH ×2 (08:55→16:06)
[2017-12-01] MEDS ORDERED: Aspirin 81 MG TAB.CHEW PO ONE (09:05)
[2017-12-01 09:10] LABS: Alanine Aminotransferase 16 Units/L (7-52); Albumin 3.1 g/dL (3.5-5.7); Albumin/Globulin Ratio 1.5 (1.1-2.2); Alkaline Phosphatase 69 Units/L (34-104); Aspartate Amino Transferase 18 Units/L (13-39); BUN/Creatinine Ratio 36 (6-26); Bilirubin,Direct 0.1 mg/dL (0.0-0.2); Bilirubin,Indirect 0.6 mg/dL (0.0-1.2); Bilirubin,Total 0.7 mg/dL (0.3-1.0); Blood Urea Nitrogen 37 mg/dL (8-23); Calcium 9.4 mg/dL (8.6-10.3); Carbon Dioxide 28 mEq/L (23-29); Chloride 104 mEq/L (98-107); Globulin 2.1 g/dL (2.4-3.5); Glucose 73 mg/dL (70-105); Magnesium 1.7 mg/dL (1.6-2.6); Osmolality,Calculated 301 (280-300); Phosphorous 1.8 mg/dL (2.7-4.5); Potassium 3.4 mEq/L (3.5-5.1); Sodium 142 mEq/L (136-145); Total Protein 5.2 g/dL (6.4-8.9); eGFR For African Americans > 60 (> 60); eGFR For Non-African Americans > 60 (> 60)
--- NOTE | 2017-12-01 09:35 | Emergency Department Note ---
Disposition Clinical Impression: Atrial fibrillation with RVR, Elevated troponin Respiratory failure Qualifiers: Chronicity: acute Respiratory failure complication: unspecified whether with hypoxia or hypercapnia Qualified Code(s): J96.00 - Acute respiratory failure, unspecified whether with hypoxia or hypercapnia Disposition: Admitted As Inpatient Condition: Fair SOB HPI - General Chief Complaint: ED Shortness of Breath/Dyspnea Stated Complaint: shortness of breath Time Seen by Provider: 12/01/17 08:19 Source: patient, EMS Mode of arrival: EMS Limitations: no limitations Nursing Notes Reviewed: Yes Vital Signs Reviewed: Yes - History of Present Illness 82-year-old male history of COPD on 2 L nasal cannula as needed who presents to the ER with a chief complaint of shortness of breath. Patient arrives via EMS. Reports that he is on steroids daily and has been having to use his oxygen continuously for the last day. Reports he woke up this morning short of breath. He denies any fevers, chest pain, nausea, vomiting, diarrhea. Has had productive sputum. No sick contacts. No history of DVT or PE. No other complaints. Pt Subjective Complaint: shortness of breath, cough Onset (ago): hour(s) Context: recent illness Severity: severe Consistency/Duration: constant Improves with: nothing Worsens with: nothing Known history of: COPD Associated symptoms: Reports: cough, sputum production. Denies: chest pain, fever Treatment prior to arrival: oxygen Cough present: Yes Cough Description: Involuntary Cough Frequency: Intermittent Sputum production: No Sputum Amount: None - Related Data Home oxygen amount: 2 liters Home Medications Medication Instructions Recorded Confirmed Aspirin 81 mg PO QAM 08/08/15 12/01/17 Metoprolol [Lopressor] 25 mg PO BID 08/08/15 12/01/17 Mometasone Furoate [Asmanex Hfa] 1 puff IH BID 08/08/15 12/01/17 Olodaterol HCl [Striverdi Respimat] 2 puff IH DAILY 10/27/16 12/01/17 Roflumilast [Daliresp] 500 mcg PO DAILY 06/04/17 12/01/17 Secukinumab [Cosentyx Pen] 300 mg SQ QMONTH 06/04/17 12/01/17 Carboxymethylcellulose Sodium 1 drop BOTH EYES BID PRN 12/01/17 12/01/17 [Refresh Liquigel] Lactose-Reduced Food [Ensure Plus] 1 bottle PO DAILY 12/01/17 12/01/17 Levalbuterol [Xopenex INH] 2 puff IH Q6H PRN 12/01/17 12/01/17 Losartan [Cozaar] 25 mg PO BID 12/01/17 12/01/17 Naproxen [Naprosyn] 500 mg PO BID PRN 12/01/17 12/01/17 Omeprazole [PriLOSEC] 20 mg PO BIDAC 12/01/17 12/01/17 predniSONE [PredniSONE] See Taper PO DAILY 12/01/17 12/01/17 Allergies Allergy/AdvReac Type Severity Reaction Status Date / Time budesonide [From Symbicort] Allergy Swelling Verified 11/25/17 23:35 of Lip/Tongue/Throat ceftriaxone Allergy See Verified 11/25/17 23:35 Comments codeine Allergy Rash Verified 11/25/17 23:35 levofloxacin Allergy Rash Verified 11/25/17 23:35 moxifloxacin Allergy Anaphylaxis Verified 11/25/17 23:35 tiotropium Allergy Swelling Verified 11/25/17 23:35 [From Spiriva with of HandiHaler] Lip/Tongue/Throat doxycycline AdvReac unable to Verified 11/25/17 23:35 take due to psoriasis medicine All systems ED: reviewed and negative except as stated. Constitutional: Denies: fever Cardiovascular: Denies: chest pain Respiratory: Reports: cough, dyspnea, sputum production Gastrointestinal: Denies: abdominal pain, nausea, vomiting, diarrhea Past Medical History - Past Medical History Attestation: Yes The following information was validated with the patient. Source: patient Medical history: Reports: asthma, cancer, COPD, GERD, hyperlipidemia, hypertension, peripheral artery disease, other Surgical history: Reports: vascular surgery Psychiatric history: Reports: anxiety - Social History Smoking Status: Former smoker Smokeless Tobacco Status: No Alcohol use: Reports: none Drug use: Reports: none Physical Exam - General Limitations: no limitations General appearance: alert, in no apparent distress - Head Head exam: atraumatic, normocephalic - Eye Eye exam: Present: normal appearance - ENT ENT exam: normal exam - Neck Neck exam: Present: normal inspection - Chest Chest inspection: Present: normal inspection, symmetric chest wall rise - Respiratory Respiratory exam: Present: respiratory distress, wheezes (Diffuse wheezing with diminished breath sounds bilaterally), accessory muscle use, prolonged expiratory phase - Cardiovascular Cardiovascular exam: Present: tachycardia, irregular rhythm, normal heart sounds - Abdominal Exam Abdominal exam: Present: soft, Non-Tender. Absent: tenderness - Extremities Exam Extremities exam: Present: normal inspection, full ROM - Expanded Upper Extremity Exam Shoulder exam: Present: normal inspection, full ROM Arm exam: Present: normal inspection, full ROM Elbow exam: Present: normal inspection, full ROM Forearm/Wrist exam: Present: normal inspection, full ROM Hand exam: Present: normal inspection, full ROM Vascular exam: Normal: radial pulse - Expanded Lower Extremity Exam Hip/Pelvis exam: Present: normal inspection, full ROM Upper leg exam: Present: normal inspection, full ROM Knee exam: Present: normal inspection, full ROM Lower leg exam: Present: normal inspection, full ROM Ankle exam: Present: normal inspection, full ROM Foot/toe exam: Present: normal inspection, full ROM - Neurological Exam Neurological exam: Present: alert, other (GCS 15. Nonfocal) - Psychiatric Psychiatric exam: Present: normal affect - Skin Skin exam: Present: warm, dry, intact Course Course Narrative: Patient seen and examined the time of arrival. He is noted to be in A. fib RVR with marginal blood pressure of 100 systolic. Given his heart rate over 150 we will hold on DuoNeb treatments at this time, give IV Solu-Medrol, start CPAP and attempt to rate control with Cardizem. Calcium ordered for pretreatment. We will hold on a bolus as he is hypotensive and start with infusion and titrate to effect. - Reevaluation(s) Reevaluation #1: Patient also CPAP. Blood pressure 160/80. 10 mg Cardizem bolus ordered. We will continue to monitor. Reevaluation #2: Discussed with the patient about imaging labs and expected hospital stay. He denies any hemoptysis, hematemesis, melena, hematochezia, hematuria. We will heparinize the patient given elevated troponin with concern for PE in the setting of respiratory distress and new onset A. fib. Vital Signs Temperature 97.9 F 12/01/17 08:15 Pulse Rate 174 12/01/17 08:15 Respiratory Rate 24 12/01/17 08:15 Blood Pressure 97/85 12/01/17 08:15 O2 Sat by Pulse Oximetry 93 12/01/17 08:15 Temperature 97.9 F 12/01/17 08:15 Pulse Rate 109 12/01/17 13:07 Respiratory Rate 14 12/01/17 13:18 Blood Pressure 85/62 12/01/17 13:18 O2 Sat by Pulse Oximetry 97 12/01/17 13:07 Oxygen Delivery Oxygen Delivery Bipap Shortness of Breath/Dyspnea - MDM Narrative Medical decision making narrative: 82-year-old male presents to the ER due to respiratory distress. History of COPD with worsening respiratory status for the last day. Noted to be tachycardic and new onset A. fib RVR here. Initially hypotensive requiring IV fluids. He was initially placed on CPAP given his tachycardia and resistance to wanting to give him DuoNeb treatments. He was bolused Cardizem twice and placed on drip currently titrated at 10. Patient also had improvement of his respiratory status with CPAP. EKG demonstrates A. fib RVR which is new. Chest x-ray unremarkable. He does have an elevated troponin of 0.09. Patient placed on heparin drip due to elevated troponin as well as presumption of potential pulmonary embolism attributed to his symptoms. He is admitted to the hospitalist service for further management. - Lab Data Lab results reviewed: Yes I reviewed the patient's lab results. Result diagrams: 12/01/17 08:31 12/01/17 08:31 Lab Results 12/01/17 12/01/17 12/01/17 Range/Units 08:31 08:31 08:31 WBC 10.5 (4.3-11.1) K/mcL RBC 4.15 L (4.19-5.50) M/mcL Hgb 12.5 L (12.9-16.9) g/dL Hct 38.5 (37.5-50.1) % MCV 92.8 (83.0-100.0) fL MCH 30.1 (28.0-33.3) pg MCHC 32.5 (31.6-35.5) g/dL RDW 15.5 H (11.5-14.5) % Plt Count 189 (140-400) K/mcL MPV 12.3 (9.4-12.4) fL Immature Gran % 0.6 (0-4) % Seg Neutrophils % 80.2 % Lymphocytes % 12.2 % Monocytes % 6.7 % Eosinophils % 0.0 % Basophils % 0.3 % Neutrophils # 8.4 (1.6-8.9) K/mcL Lymphocytes # 1.3 (0.6-4.6) K/mcL Monocytes # 0.7 (0.0-1.3) K/mcL Eosinophils # 0.0 (0.0-0.6) K/mcL Basophils # 0.0 (0.0-0.2) K/mcL PT 11.5 (9.4-12.1) Seconds INR 1.1 APTT 28.5 (26.0-36.0) Seconds Sodium 142 (136-145) mEq/L Potassium 3.4 L (3.5-5.1) mEq/L Chloride 104 (98-107) mEq/L Carbon Dioxide 28 (23-29) mEq/L BUN 37 H (8-23) mg/dL Creatinine 1.02 (0.70-1.30) mg/dL Est GFR ( Amer) > 60 (> 60) Est GFR (Non-Af Amer) > 60 (> 60) BUN/Creatinine Ratio 36 H (6-26) Glucose 73 (70-105) mg/dL Calculated Osmolality 301 H (280-300) Lactic Acid (0.5-2.2) mmol/L Calcium 9.4 (8.6-10.3) mg/dL Phosphorus 1.8 L (2.7-4.5) mg/dL Magnesium 1.7 (1.6-2.6) mg/dL Total Bilirubin 0.7 (0.3-1.0) mg/dL Direct Bilirubin 0.1 (0.0-0.2) mg/dL Indirect Bilirubin 0.6 (0.0-1.2) mg/dL AST 18 (13-39) Units/L ALT 16 (7-52) Units/L Alkaline Phosphatase 69 (34-104) Units/L Troponin I (< 0.04) ng/mL B-Natriuretic Peptide (Less than 100) pg/mL Serum Total Protein 5.2 L (6.4-8.9) g/dL Albumin 3.1 L (3.5-5.7) g/dL Globulin 2.1 L (2.4-3.5) g/dL Albumin/Globulin Ratio 1.5 (1.1-2.2) Urine Color (Yellow) Urine Clarity (Clear) Urine pH (5.0-8.0) pH Units Ur Specific [place] (1.010-1.025) Urine Protein (Neg-Trace) mg/dL Urine Glucose (UA) (Normal) mg/dL Urine Ketones (Negative) mg/dL Urine Blood (Negative) Urine Nitrite (Negative) Urine Bilirubin (Negative) Urine Urobilinogen (Normal) mg/dL Ur Leukocyte Esterase (Negative) Urine Microscopic RBC (0-3) per hpf Urine Microscopic WBC (0-3) per hpf Ur Squamous Epith Cells (None-Few) per lpf Urine Bacteria (None-Few) per hpf Hyaline Casts (None-Few) per lpf Ur Culture Indicated? (NO) 12/01/17 12/01/17 12/01/17 Range/Units 08:31 08:31 08:31 WBC (4.3-11.1) K/mcL RBC (4.19-5.50) M/mcL Hgb (12.9-16.9) g/dL Hct (37.5-50.1) % MCV (83.0-100.0) fL MCH (28.0-33.3) pg MCHC (31.6-35.5) g/dL RDW (11.5-14.5) % Plt Count (140-400) K/mcL MPV (9.4-12.4) fL Immature Gran % (0-4) % Seg Neutrophils % % Lymphocytes % % Monocytes % % Eosinophils % % Basophils % % Neutrophils # (1.6-8.9) K/mcL Lymphocytes # (0.6-4.6) K/mcL Monocytes # (0.0-1.3) K/mcL Eosinophils # (0.0-0.6) K/mcL Basophils # (0.0-0.2) K/mcL PT (9.4-12.1) Seconds INR APTT (26.0-36.0) Seconds Sodium (136-145) mEq/L Potassium (3.5-5.1) mEq/L Chloride (98-107) mEq/L Carbon Dioxide (23-29) mEq/L BUN (8-23) mg/dL Creatinine (0.70-1.30) mg/dL Est GFR ( Amer) (> 60) Est GFR (Non-Af Amer) (> 60) BUN/Creatinine Ratio (6-26) Glucose (70-105) mg/dL Calculated Osmolality (280-300) Lactic Acid 2.5 H (0.5-2.2) mmol/L Calcium (8.6-10.3) mg/dL Phosphorus (2.7-4.5) mg/dL Magnesium (1.6-2.6) mg/dL Total Bilirubin (0.3-1.0) mg/dL Direct Bilirubin (0.0-0.2) mg/dL Indirect Bilirubin (0.0-1.2) mg/dL AST (13-39) Units/L ALT (7-52) Units/L Alkaline Phosphatase (34-104) Units/L Troponin I 0.09 H* (< 0.04) ng/mL B-Natriuretic Peptide 229 H (Less than 100) pg/mL Serum Total Protein (6.4-8.9) g/dL Albumin (3.5-5.7) g/dL Globulin (2.4-3.5) g/dL Albumin/Globulin Ratio (1.1-2.2) Urine Color (Yellow) Urine Clarity (Clear) Urine pH (5.0-8.0) pH Units Ur Specific [place] (1.010-1.025) Urine Protein (Neg-Trace) mg/dL Urine Glucose (UA) (Normal) mg/dL Urine Ketones (Negative) mg/dL Urine Blood (Negative) Urine Nitrite (Negative) Urine Bilirubin (Negative) Urine Urobilinogen (Normal) mg/dL Ur Leukocyte Esterase (Negative) Urine Microscopic RBC (0-3) per hpf Urine Microscopic WBC (0-3) per hpf Ur Squamous Epith Cells (None-Few) per lpf Urine Bacteria (None-Few) per hpf Hyaline Casts (None-Few) per lpf Ur Culture Indicated? (NO) 12/01/17 Range/Units 11:00 WBC (4.3-11.1) K/mcL RBC (4.19-5.50) M/mcL Hgb (12.9-16.9) g/dL Hct (37.5-50.1) % MCV (83.0-100.0) fL MCH (28.0-33.3) pg MCHC (31.6-35.5) g/dL RDW (11.5-14.5) % Plt Count (140-400) K/mcL MPV (9.4-12.4) fL Immature Gran % (0-4) % Seg Neutrophils % % Lymphocytes % % Monocytes % % Eosinophils % % Basophils % % Neutrophils # (1.6-8.9) K/mcL Lymphocytes # (0.6-4.6) K/mcL Monocytes # (0.0-1.3) K/mcL Eosinophils # (0.0-0.6) K/mcL Basophils # (0.0-0.2) K/mcL PT (9.4-12.1) Seconds INR APTT (26.0-36.0) Seconds Sodium (136-145) mEq/L Potassium (3.5-5.1) mEq/L Chloride (98-107) mEq/L Carbon Dioxide (23-29) mEq/L BUN (8-23) mg/dL Creatinine (0.70-1.30) mg/dL Est GFR ( Amer) (> 60) Est GFR (Non-Af Amer) (> 60) BUN/Creatinine Ratio (6-26) Glucose (70-105) mg/dL Calculated Osmolality (280-300) Lactic Acid (0.5-2.2) mmol/L Calcium (8.6-10.3) mg/dL Phosphorus (2.7-4.5) mg/dL Magnesium (1.6-2.6) mg/dL Total Bilirubin (0.3-1.0) mg/dL Direct Bilirubin (0.0-0.2) mg/dL Indirect Bilirubin (0.0-1.2) mg/dL AST (13-39) Units/L ALT (7-52) Units/L Alkaline Phosphatase (34-104) Units/L Troponin I (< 0.04) ng/mL B-Natriuretic Peptide (Less than 100) pg/mL Serum Total Protein (6.4-8.9) g/dL Albumin (3.5-5.7) g/dL Globulin (2.4-3.5) g/dL Albumin/Globulin Ratio (1.1-2.2) Urine Color Yellow (Yellow) Urine Clarity Clear (Clear) Urine pH 6.0 (5.0-8.0) pH Units Ur Specific [place] 1.013 (1.010-1.025) Urine Protein >=300 H (Neg-Trace) mg/dL Urine Glucose (UA) Normal (Normal) mg/dL Urine Ketones Trace H (Negative) mg/dL Urine Blood Moderate H (Negative) Urine Nitrite Negative (Negative) Urine Bilirubin Negative (Negative) Urine Urobilinogen Normal (Normal) mg/dL Ur Leukocyte Esterase Negative (Negative) Urine Microscopic RBC 50-100 H (0-3) per hpf Urine Microscopic WBC 15-30 H (0-3) per hpf Ur Squamous Epith Cells Many H (None-Few) per lpf Urine Bacteria Few (None-Few) per hpf Hyaline Casts None Seen (None-Few) per lpf Ur Culture Indicated? NO (NO) - Radiology Data Radiology results reviewed: Yes I reviewed the patient's radiology results. Chest X-Ray 12/01/17 09:20 IMPRESSION: 1. No acute cardiopulmonary disease. 2. Nonvisualization of 3 small pulmonary nodules, which were previously evaluated with chest CT. Continued CT follow-up is recommended, as previously described. 3. COPD. 4. Calcified pleural plaques, compatible with prior asbestos exposure. D/ / Tom Kay MD / Tom Kay MD Interpreting Provider: Tom Kay MD - EKG Data EKG attestation: Yes I reviewed and interpreted this EKG. EKG results narrative: EKG demonstrates atrial fibrillation with rapid ventricular response with a rate of 158. Normal axis. Right bundle branch block. Prolonged QRS duration 142. Normal R-wave progression. No gross ST elevations or depressions. Changes from previous EKG include atrial fibrillation. Critical Care Time Critical Care Time: Yes Total Critical Care Time: 60 Attestation: The high probability of a clinically significant, sudden or life threatening deterioration of the [resp/CV] system(s) required my full and direct attention, intervention and personal management. The aggregate critical care time was [60] minutes. This time is in addition to time spent performing reported procedures but includes the following: [x] Data Review and interpretation [x] Patient assessment and monitoring of vital signs [x] Documentation [x] Medication orders and management S.B.A.R. - S.B.A.R. Situation: Demographics, MOA Background: Presenting Complaint, Relevant PMH, Meds, & Allergies Assessment: Vital Signs, Course and respsone to treatment, Exam Concerns, Patient/Family Expectation, Pertinant Lab Results, Outstanding Labs Recommendation: Barrier(s) to disposition, Recommendation based on pending studies, treatments, or consults Fish Report Given to: Dr. Ze Whitten Repor Time: 11:13 (Request to replace magnesium and potassium and agrees with heparinizing the patient given elevated troponin and instability to get a CT scan at this time.) Attestation Statement - Attestation Attestation: I examined this patient and my medical decision-making was reviewed with the Resident Physician, Dr. Galvan. I agree with the documented findings, disposition and treatment plan as described except to the extent set forth below. Pt is an 82 yo elderly white male with history of COPD and is on supplement oxygen home who presents to the emergency department with a one-day history of gradually worsening shortness of breath. Patient was having increased work of breathing, and hypoxia on room air on arrival. Patient states when he woke up this morning he was feeling much more short of breath and has had an occasional cough with productive sputum. No ill contacts, no recent hospitalizations. Patient denies any chest pain pressure or heaviness, no diaphoresis, no posttussive emesis nausea or vomiting. Patient's physical exam findings as documented. On arrival patient was tachycardic, to get neck, hypoxic on room air and in mild respiratory distress. classroom monitor showed patient to be in atrial fibrillation with RVR which is new for him. EKG showed A. fib with RVR with no acute ischemia. Due to patient's tachycardia we held duo nebs initially placed the patient on BiPAP, and administered Cardizem bolus 2 with Cardizem drip for rate control. Labs show an elevated troponin unclear with no chest discomfort at this time whether this is rate related or non-STEMI. Patient was also given aspirin. Patient has denied chest pain throughout his ED course. Patient's breathing is much improved at this time, chest x-ray shows no acute process. Currently we are titrating his Cardizem drip for ongoing rate control. Patient will be admitted for new onset A. fib with RVR, elevated troponin, and acute exacerbation of COPD. Case was discussed with the hospitalist who accepted patient for admission.
[2017-12-01] MEDS ORDERED: *HR* Heparin 5,000 UNIT/ML VIAL IVP ONE (11:06)
[2017-12-01] MEDS ORDERED: *HR* Heparin 5,000 UNIT/ML VIAL IVP PRN ×2 (11:06)
[2017-12-01] MEDS ORDERED: Potassium Chloride Elixir 20 MEQ/15 ML UDC PO ONE (11:07)
[2017-12-01 11:11] LABS: Bilirubin,Urine Negative (Negative); Blood,Urine Moderate (Negative); Clarity,Urine Clear (Clear); Color,Urine Yellow (Yellow); Glucose,Urine (UA) Normal (Normal); Ketones,Urine Trace mg/dL (Negative); Leukocyte Esterase,Urine Negative (Negative); Nitrite,Urine Negative (Negative); Protein,Urine >=300 mg/dL (Neg-Trace); Specific Gravity,Urine 1.013 (1.010-1.025); Urobilinogen,Urine Normal (Normal)
[2017-12-01 11:13] LABS: Hyaline Casts,Urine None Seen per lpf (None-Few); RBC,Urine 50-100 per hpf (0-3); Squamous Epithelial Cell,Urine Many per lpf (None-Few); WBC,Urine 15-30 per hpf (0-3)
[2017-12-01] MEDS ORDERED: Heparin 25,000 UNIT/500 ML D5W 25,000 UNIT/500 ML BAG IVC SCH (11:15)
[2017-12-01 11:21] LABS: Bacteria,Urine Few per hpf (None-Few)
[2017-12-01] MEDS ORDERED: Acetaminophen 325 MG TABLET PO PRN (13:26)
[2017-12-01] MEDS ORDERED: Ondansetron 4 MG/2 ML VIAL IVP PRN (13:26)
[2017-12-01] MEDS ORDERED: Naloxone 0.4 MG/ML INJ IVP PRN (13:26)
--- NOTE | 2017-12-01 14:13 | Cardiology Consult Note ---
<Georgiana Tucker Sukumar - Last Filed: 12/01/17 14:29> Date of Encounter: 12/01/17 Time of Encounter: 14:00 Assessment and Plan Discussion w patient/family: Unable to add A&P due to [employer] error. 1.) Atrial fibrillation with RVR New diagnosis--unclear chronicity. Recommend rate control strategy. Continue IV cardizem gtt, goal HR less than 100. Anticipate difficulty with rate control until respiratory status improves. Convert to po cardizem when able. Would avoid BB due to severe COPD. Hypokalemia noted upon admission, orders for replacement. Recommend K >4.0 and Mg >2.0. TTE May 2017: EF 60-65%, no significant valvular dysfunction. Add TSH. CHA2Ds Vasc= 3 (age, HTN). Discussed with patient and family, recommend full anticoagulation. Discussed NOAC vs. coumadin, pt/family are leaning toward NOAC. Continue IV heparin gtt for now until decision is made. Of note, patient has hx of CKD-3, SCr stable. 2.) Elevated troponin Mild troponin elevation in the setting of atrial fibrillation with RVR--HR 170s upon arrival. Likely secondary to demand ischemia. Patient denies chest pain, no ischemic ECG changes noted. Last TTE showed preserved LVEF, 60-65%. Repeat TTE pending. Continue asa, statin. No BB due to advanced lung disease (COPD/cancer). 3.) COPD Exacerbation Mgmt per primary service. The assessment and plan as outlined above was discussed with the patient and/or family members who expressed understanding and agreement. All questions were answered. Thank you for involving us in the care of your patient. Please call with any questions. The patient will be discussed and reviewed with Dr. Stewart; changes to be made accordingly. History of Present Illness Consult date: 12/01/16 Requesting physician: Yeny Cooper Consult reason: Afib with RVR Chief complaint: Shortness of breath History of present illness: Mr. Ho is a 82 year old male with PMHx significant for COPD on home oxygen ( 2lpm), HTN, PAD, GERD, CKD-3, psoriasis, and lung CA who presented to the ED with worsening shortness of breath over the past few days. He reports he typically utilizes home oxygen therapy only at night but dyspnea has required around the clock usage. Shortness of breath worsens with minimal exertion. Of note, multiple recent admissions due to COPD exacerbations. Upon arrival to ED, HR was afib with RVR 170's. He was started on Cardizem and heparin gtt. HR upon exam 90-110's. Prior CV testing: TTE May 2017: EF 60-65%, mild LVDD, mild TR/PH, normal wall motion Past Med Surg Social Fam HX - Past Medical History Attestation: Yes The following information was validated with the patient. Source: patient, old records reviewed, obtained from family Medical history: asthma, cancer, COPD, GERD, hypertension, peripheral artery disease Psychiatric history: anxiety - Past Surgical History Surgical History: vascular surgery - Social History Smoking Status: Former smoker Smokeless Tobacco Status: No Alcohol use: none Drug use: none - Family History Brother Family Member Ethnicity: Non- Living Status: Hx Family Cardiac Disorders: Yes (5x CABG, CAD, HTN, HLD) Hx Family Respiratory Disorders: No Hx Family Cancer: No Hx Family GI Disorders: No Hx Family Endocrine Disorder: No Hx Family Neuromuscular Disorders: No Hx Family Neurologic Disorders: No Hx Family HEENT Disorders: No Hx Family Autoimmune Disorders: No Mother Adopted: No Family Member Ethnicity: Non- Living Status: Hx Family Cardiac Disorders: Yes (CHF) Father Adopted: No Family Member Ethnicity: Non- Living Status: Hx Family Cardiac Disorders: Yes (Stroke) Sister Adopted: No Family Member Ethnicity: Non- Living Status: Hx Family Cancer: Yes (Melanoma) Medications and Allergies Aspirin 81 mg PO QAM 08/08/15 [History] Metoprolol [Lopressor] 25 mg PO BID 08/08/15 [History] Mometasone Furoate [Asmanex Hfa] 1 puff IH BID 08/08/15 [History] Olodaterol HCl [Striverdi Respimat] 2 puff IH DAILY 10/27/16 [History] Roflumilast [Daliresp] 500 mcg PO DAILY 06/04/17 [History] Secukinumab [Cosentyx Pen] 300 mg SQ QMONTH 06/04/17 [History] Carboxymethylcellulose Sodium [Refresh Liquigel] 1 drop BOTH EYES BID PRN [History] Lactose-Reduced Food [Ensure Plus] 1 bottle PO DAILY 12/01/17 [History] Levalbuterol [Xopenex INH] 2 puff IH Q6H PRN 12/01/17 [History] Losartan [Cozaar] 25 mg PO BID 12/01/17 [History] Naproxen [Naprosyn] 500 mg PO BID PRN 12/01/17 [History] Omeprazole [PriLOSEC] 20 mg PO BIDAC 12/01/17 [History] predniSONE [PredniSONE] See Taper PO DAILY 12/01/17 [History] 3 Allergy/AdvReac Type Severity Reaction Status Date / Time budesonide [From Symbicort] Allergy Swelling Verified 11/25/17 23:35 of Lip/Tongue/Throat ceftriaxone Allergy See Verified 11/25/17 23:35 Comments codeine Allergy Rash Verified 11/25/17 23:35 levofloxacin Allergy Rash Verified 11/25/17 23:35 moxifloxacin Allergy Anaphylaxis Verified 11/25/17 23:35 tiotropium Allergy Swelling Verified 11/25/17 23:35 [From Spiriva with of HandiHaler] Lip/Tongue/Throat doxycycline AdvReac unable to Verified 11/25/17 23:35 take due to psoriasis medicine All Systems Review: A 10-system review of systems was performed and is negative for pertinent findings except as documented above in the HPI. - Cardiovascular Cardiovascular: as per HPI Physical Examination Vital Signs, Last 4 Hours Pulse Resp BP Pulse Ox 12/01/17 13:18 14 85/62 12/01/17 13:07 109 15 84/62 97 General: Conversant, Other (appears chronically ill; conversational dyspnea) HEENT: Atraumatic, Normocephaly, Mucus Membranes Moist Cardiac: Other (irregularly irregular) Lungs: Other (wheezing, decreased breath sounds throughout) Neuro: Alert and responsive Abdomen: Soft Skin: Other (thin, dry skin) Extremities: No Edema, Normal Pulses Results 12/01/17 08:31 12/01/17 08:31 Active Medications Acetaminophen (Tylenol) 650 mg PO Q6HR PRN PRN Reason: Mild Pain (1-3) Stop: 06/02/18 13:27 Aspirin (Aspirin) 81 mg PO QAM [facility] Stop: 06/03/18 09:01 Beclomethasone Dipropionate (Qvar 80 Mcg) 1 puff IH BIDR [facility] Stop: 06/02/18 22:01 Heparin Sodium (Porcine) (Heparin) 3,000 unit 60 unit/kg (3000 unit) IVP Q6HR PRN PRN Reason: SEE COMMENTS Stop: 06/02/18 11:07 Heparin Sodium (Porcine) (Heparin) 1,500 unit 30 unit/kg (1500 unit) IVP Q6H PRN PRN Reason: SEE COMMENTS Stop: 06/02/18 11:07 Diltiazem HCl 100 mg/ Dextrose 50 mls @ 2.5 mls/hr IVC .Q20H MEGAN; 5 MG/HR PRN Reason: Protocol Stop: 06/02/18 08:46 Last Titration: 12/01/17 10:52 Dose: 10 mg/hr, 5 mls/hr Heparin Sodium/Dextrose (Heparin 25,000 Unit/500 Ml D5w) 25,000 unit in 500 mls @ 11.975 mls/hr IVC .Q24H MEGAN; 12 UNIT/KG/HR PRN Reason: Protocol Stop: 06/02/18 11:16 Last Admin: 12/01/17 13:15 Dose: 12 unit/kg/hr, 11.975 mls/hr Sodium Chloride (0.9 % Sodium Chloride) 1,000 mls @ 100 mls/hr IVC .Q10H MEGAN Stop: 12/02/17 10:14 Piperacillin Sod/Tazobactam Sod (Zosyn Premix 3.375 Gm/200 Ml) 3.375 gm in 200 mls @ 50 mls/hr IVPB Q8HR MEGAN Stop: 06/02/18 16:01 Tobramycin Sulfate 250 mg/ (Dextrose) 106.25 mls @ 100 mls/hr IVPB RPHPROT MEGAN PRN Reason: Protocol Stop: 06/02/18 15:01 Vancomycin HCl 750 mg/ (Dextrose) 250 mls @ 167 mls/hr IVPB RPHPROT MEGAN PRN Reason: Protocol Stop: 06/02/18 15:01 Vancomycin HCl 750 mg/ (Dextrose) 250 mls @ 250 mls/hr IVPB Q24H MEGAN Stop: 06/02/18 15:01 Levalbuterol HCl (Xopenex) 1.25 mg IH [id number] MEGAN Stop: 06/02/18 13:46 Methylprednisolone (Solu-Medrol) 80 mg IVP Q6HR MEGAN Stop: 06/02/18 18:01 Naloxone HCl (Narcan) 0.4 mg IVP Q2MIN PRN PRN Reason: Opioid Reversal Stop: 06/02/18 13:27 Omeprazole (Prilosec) 20 mg PO BIDAC MEGAN PRN Reason: Protocol Stop: 06/02/18 16:31 Ondansetron HCl (Zofran) 4 mg IVP Q8HR PRN PRN Reason: Nausea And Vomiting Stop: 06/02/18 13:27 Pharmacy Profile Note (Patient Taking Own Medication) 500 each PO DAILY MEGAN Stop: 06/03/18 09:01 - Imaging and Cardiology Echo: pending, report reviewed - EKG Interpretation EKG results cardiology: personally reviewed Consult Discharge Plan - Plan [facility] Care Provider[facility] - <Yeny Cooper - Last Filed: 12/01/17 14:45> Date of Encounter: 12/01/17 Assessment and Plan (1) Sepsis Current Visit: Yes Status: Acute Qualifiers: Sepsis type: sepsis due to unspecified organism Qualified Code(s): A41.9 - Sepsis, unspecified organism (2) Respiratory failure Current Visit: Yes Status: Acute Qualifiers: Chronicity: acute Respiratory failure complication: hypoxia Qualified Code(s): J96.01 - Acute respiratory failure with hypoxia (3) HCAP (healthcare-associated pneumonia) Current Visit: No Status: Acute (4) Atrial fibrillation with RVR Current Visit: Yes Status: Acute (5) Hypokalemia Current Visit: Yes Status: Acute (6) Squamous cell carcinoma of left lung Current Visit: No Status: Chronic (7) Hypomagnesemia Current Visit: Yes Status: Acute (8) Elevated troponin Current Visit: Yes Status: Acute (9) COPD (chronic obstructive pulmonary disease) Current Visit: No Status: Chronic Qualifiers: COPD type: unspecified COPD Qualified Code(s): J44.9 - Chronic obstructive pulmonary disease, unspecified (10) HTN (hypertension) Current Visit: No Status: Chronic Qualifiers: Hypertension type: essential hypertension Qualified Code(s): I10 - Essential (primary) hypertension (11) Advance directive discussed with patient Current Visit: Yes Status: Acute (12) DVT prophylaxis Current Visit: Yes Status: Chronic (13) CKD (chronic kidney disease) stage 3, GFR 30-59 ml/min Current Visit: Yes Status: Acute Presently his creatinine is stable at 1.02 we will continue to monitor Avoid nephrotoxins Renally dose antibiotics Monitor intake and output daily weights Discussion w patient/family: The assessment and plan as outlined above was discussed with the patient and/or family members who expressed understanding and agreement. All questions were answered. Thank you for involving us in the care of your patient. Please call with any questions. History of Present Illness History of present illness: Mr. Ho is a 82 year old male All Systems Review: A 10-system review of systems was performed and is negative for pertinent findings except as documented above in the HPI. Physical Examination Vital Signs, Last 4 Hours Pulse Resp BP Pulse Ox 12/01/17 13:18 14 85/62 12/01/17 13:07 109 15 84/62 97 Results 12/01/17 08:31 12/01/17 08:31
[2017-12-01] MEDS ORDERED: 0.9 % Sodium Chloride 1,000 ML IVC SCH (14:15)
--- NOTE | 2017-12-01 14:19 | Internal Med History&Physical ---
<Yeny Cooper - Last Filed: 12/01/17 15:05> Date of Encounter: 12/01/17 Time of Encounter: 14:09 Assessment and Plan (1) Sepsis Current visit: Yes Status: Acute 1 patient has been experiencing increasing shortness of breath cough and yellow sputum production. He was treated last week for pneumonia and left AGAINST MEDICAL ADVICE. Culture and sensitivity did reveal Klebsiella and Pseudomonas and sputum. On presentation he was tachycardic, tachypneic elevated lactate and hypotensive. Blood cultures have been drawn and we will cover for HCAP with vancomycin and Zosyn Continue with IV fluids maintain MAP greater than 60 Monitor intake and output Continuous cardiac monitoring Continuous pulse ox Qualifiers: Sepsis type: sepsis due to unspecified organism Qualified Code(s): A41.9 - Sepsis, unspecified organism (2) Respiratory failure Current visit: Yes Status: Acute 1 this is multifactorial, patient has underlying COPD as well as recent treatment of pneumonia, also patient has high risk for PE secondary to lung cancer -unstable to go to CTA at this time-we will obtain CTA once stable in the meantime will initiate a heparin drip. Also patient's presenting in A. fib RVR which is contributing to unstable respiratory state. He does have a history of lung cancer is not receiving any treatment at this time-last bronchoscopy was then June of this year-he is not receiving any chemotherapy or radiation treatment this time. We will consult pulmonary as needed Continue with BiPAP titrated to maintain SPO2 greater than 90% Qualifiers: Chronicity: acute Respiratory failure complication: hypoxia Qualified Code(s): J96.01 - Acute respiratory failure with hypoxia (3) HCAP (healthcare-associated pneumonia) Current visit: No Status: Acute Patient was recently hospitalized approximately a week ago for pneumonia and left AGAINST MEDICAL ADVICE. Sputum cultures did reveal Klebsiella and Pseudomonas. We will initiate on vancomycin and Zosyn Continue with BiPAP to maintain SPO2 greater than 90% We will continue with bronchodilators [id number] IV (4) Atrial fibrillation with RVR Current visit: Yes Status: Acute 1 patient presents A. fib RVR with rate of 1 4150. No past history of atrial fibrillation. We will continue with Cardizem drip and heparin drip Give IV fluid bolus 0.9 normal saline and initiate maintenance IV We will obtain cardiac echo We did consult cardiology I spoke with Dr. Stewart he will see patient Continuous cardiac monitoring (5) Hypokalemia Current visit: Yes Status: Acute (6) Squamous cell carcinoma of left lung Current visit: No Status: Chronic Patient has been diagnosed with squamous cell carcinoma of left lung seen by -presently he is not receiving any radiation or chemotherapy treatment -Continue to follow up as outpatient and consult oncology as needed (7) Hypomagnesemia Current visit: Yes Status: Acute Magnesium 1.7 replaced and we will recheck (8) Elevated troponin Current visit: Yes Status: Acute Troponin was 0.09 most likely related to demand ischemia-denies any chest pain at this time we will continue to trend Continuous cardiac monitoring Cardiology consulted (9) COPD (chronic obstructive pulmonary disease) Current visit: No Status: Chronic Qualifiers: COPD type: unspecified COPD Qualified Code(s): J44.9 - Chronic obstructive pulmonary disease, unspecified (10) HTN (hypertension) Current visit: No Status: Chronic 1 presently patient is hypotensive- we will hold medications for now and resume once back to baseline Qualifiers: Hypertension type: essential hypertension Qualified Code(s): I10 - Essential (primary) hypertension (11) Advance directive discussed with patient Current visit: Yes Status: Acute I did discuss advanced directives with the patient and his son who is at bedside patient verbalized that he wants to be a DNR CCA with no intubation however he wanted to discuss with his daughter before making a decision. Advised he will continue be a full code until his decision has been made which he verbalized understanding. (12) DVT prophylaxis Current visit: Yes Status: Chronic On heparin drip Internal Medicine - H&P: HPI Chief complaint: SOB Admitted From: Emergency Dept Plans for Post Hospital Care: Home History of present illness: Mr. Ho is a 82 year old male past medical history of COPD oxygen dependent left lung squamous carcinoma GERD hyperlipidemia hypertension PA D. Patient was discharged from this hospital on November 20 AGAINST MEDICAL ADVICE after being treated for pneumonia. Sputum culture obtained did reveal Pseudomonas and Klebsiella. He was on Zosyn as well as steroids at home which he states he completed. He has been experiencing increasing shortness of breath over the past couple of days requiring increased use of his oxygen. He also has had a productive cough with thick yellow sputum. Denies any fevers chills nausea vomiting diarrhea chest pain. He also has a history of left lung squamous carcinoma which he has denied treatment at this time. He presented to the ER with the above complaints. Upon presentation EKG revealed A. fib RVR with rate of 140s. Patient was also hypotensive he was given fluids as well as started on Cardizem drip and placed on BiPAP. This did decrease his rate down to lower 100s. Lab work did reveal elevated troponin and hypokalemia lactate was 2.5. He has been admitted for further workup and evaluation. Presently patient continues to be in A. fib with rate in the 1 teens. Systolic blood pressure ranging from 80s to low 100s. He becomes extremely tachycardic once BiPAP removed. I did discuss CODE STATUS with the patient and the son who is at bedside. He would like to discuss with daughter before he makes a decision. Informed him to have me paged once they have made a decision. Past Med Surg Social Fam HX - Past Medical History Medical history: asthma, cancer, COPD, GERD, hyperlipidemia, hypertension, peripheral artery disease, other Psychiatric history: anxiety - Past Surgical History Surgical History: vascular surgery - Social History Smoking Status: Former smoker Smokeless Tobacco Status: No Alcohol use: none Drug use: none - Family History Brother Family Member Ethnicity: Non- Living Status: Hx Family Cardiac Disorders: Yes (5x CABG, CAD, HTN, HLD) Hx Family Respiratory Disorders: No Hx Family Cancer: No Hx Family GI Disorders: No Hx Family Endocrine Disorder: No Hx Family Neuromuscular Disorders: No Hx Family Neurologic Disorders: No Hx Family HEENT Disorders: No Hx Family Autoimmune Disorders: No Mother Adopted: No Family Member Ethnicity: Non- Living Status: Hx Family Cardiac Disorders: Yes (CHF) Father Adopted: No Family Member Ethnicity: Non- Living Status: Hx Family Cardiac Disorders: Yes (Stroke) Sister Adopted: No Family Member Ethnicity: Non- Living Status: Hx Family Cancer: Yes (Melanoma) Internal Medicine - H&P: Meds Aspirin 81 mg PO QAM 08/08/15 [History] Metoprolol [Lopressor] 25 mg PO BID 08/08/15 [History] Mometasone Furoate [Asmanex Hfa] 1 puff IH BID 08/08/15 [History] Olodaterol HCl [Striverdi Respimat] 2 puff IH DAILY 10/27/16 [History] Roflumilast [Daliresp] 500 mcg PO DAILY 06/04/17 [History] Secukinumab [Cosentyx Pen] 300 mg SQ QMONTH 06/04/17 [History] Carboxymethylcellulose Sodium [Refresh Liquigel] 1 drop BOTH EYES BID PRN [History] Lactose-Reduced Food [Ensure Plus] 1 bottle PO DAILY 12/01/17 [History] Levalbuterol [Xopenex INH] 2 puff IH Q6H PRN 12/01/17 [History] Losartan [Cozaar] 25 mg PO BID 12/01/17 [History] Naproxen [Naprosyn] 500 mg PO BID PRN 12/01/17 [History] Omeprazole [PriLOSEC] 20 mg PO BIDAC 12/01/17 [History] predniSONE [PredniSONE] See Taper PO DAILY 12/01/17 [History] 3 Allergy/AdvReac Type Severity Reaction Status Date / Time budesonide [From Symbicort] Allergy Swelling Verified 11/25/17 23:35 of Lip/Tongue/Throat ceftriaxone Allergy See Verified 11/25/17 23:35 Comments codeine Allergy Rash Verified 11/25/17 23:35 levofloxacin Allergy Rash Verified 11/25/17 23:35 moxifloxacin Allergy Anaphylaxis Verified 11/25/17 23:35 tiotropium Allergy Swelling Verified 11/25/17 23:35 [From Spiriva with of HandiHaler] Lip/Tongue/Throat doxycycline AdvReac unable to Verified 11/25/17 23:35 take due to psoriasis medicine ROS unobtainable: other All Systems PM: A 10-system review of systems was performed and is negative for pertinent findings except as documented above in the HPI. - Constitutional Vitals: Temp Pulse Resp BP Pulse Ox 97.9 F 109 14 85/62 97 12/01/17 08:15 12/01/17 13:07 12/01/17 13:18 12/01/17 13:18 12/01/17 13:07 General appearance: Present: A&O X 3 - Head Head exam: Present: atraumatic, normocephalic - Eye Eye exam: Present: PERRL, conjuntiva pink, sclera anicteric Pupils: Present: PERRL - Neck Neck exam general surgery: Present: supple, trachea midline. Absent: lymphadenopathy - Respiratory Respiratory exam: Present: respiratory distress, rhonchi. Absent: accessory muscle use, rales, wheezes - Cardiovascular Cardiovascular exam: Present: irregular rhythm, +S1, +S2. Absent: diastolic murmur, gallop, rubs, systolic murmur - GI/Abdominal GI/Abdominal exam: Present: normal bowel sounds, soft, no peritoneal signs. Absent: distended, tenderness - Extremities Exam Extremities exam: Present: warm, radial pulses palpable and symmetrical. Absent : calf tenderness, cyanotic, pedal edema - Neurological Exam Neurological exam: Present: CN II-XII intact, oriented X3, no focal deficits. Absent: pronater drift, facial droop, speech deficit - Skin Skin exam: Present: dry, intact Internal Med - H&P Results - Labs CBC & Chem 7: 12/01/17 08:31 12/01/17 08:31 - EKG Data Prior EKG available for review: yes EKG comments: 12/01/17 14:20 Atrial fibrillation with rapid ventricular response rates 140s 150s - Diagnostic Studies Other Images Additional comments: Chest X-Ray 12/01/17 09:20 IMPRESSION: 1. No acute cardiopulmonary disease. 2. Nonvisualization of 3 small pulmonary nodules, which were previously evaluated with chest CT. Continued CT follow-up is recommended, as previously described. 3. COPD. 4. Calcified pleural plaques, compatible with prior asbestos exposure. D/ / Tom Kay MD / Tom Kay MD Interpreting Provider: Tom Kay MD <John Kunz - Last Filed: 12/01/17 17:09> Date of Encounter: 12/01/17 Time of Encounter: 15:00 - Constitutional Constitutional: chills, fever(s), weakness - EENT Nose, mouth and throat: dry mouth - Cardiovascular Cardiovascular ROS IM: dyspnea, dyspnea on exertion, no chest pain - Respiratory Respiratory: cough, dyspnea, dyspnea on exertion, wheezing, chest congestion, excessive phlegm production, change in phlegm color, no hemoptysis, no pain on inspiration, no pain with cough - Gastrointestinal Gastrointestinal: nausea, no diarrhea, no vomiting - Genitourinary Genitourinary ROS male: no dysuria, no flank pain - Musculoskeletal Musculoskeletal ROS IM: muscle weakness - Neurological Neurological ROS: no focal weakness, no frequent falls, no headache(s) - Constitutional Vitals: Temp Pulse Resp BP Pulse Ox 98.0 F 118 22 110/82 95 12/01/17 14:58 12/01/17 14:58 12/01/17 16:21 12/01/17 14:58 12/01/17 16:21 General appearance: Present: cooperative, mild distress, A&O X 3, pleasant - Eye Eye exam: Present: PERRL. Absent: scleral icterus - ENT ENT exam: Present: mucous membranes dry, normal oropharynx - Neck Neck exam general surgery: Present: full ROM, supple. Absent: lymphadenopathy, tenderness - Respiratory Respiratory exam: Present: rales, respiratory distress (mild), rhonchi. Absent : chest wall tenderness, CTAB - Cardiovascular Cardiovascular exam: Present: irregular rhythm, +S1, +S2, tachycardia. Absent: diastolic murmur, systolic murmur - GI/Abdominal GI/Abdominal exam: Present: soft. Absent: tenderness - Extremities Exam Extremities exam: Present: full ROM, warm, radial pulses palpable and symmetrical. Absent: calf tenderness, joint swelling - Back Exam Back exam: Present: normal inspection. Absent: CVA tenderness (L), CVA tenderness (R) - Neurological Exam Neurological exam: Present: alert, oriented X3, no focal deficits - Psychiatric Psychiatric exam: Present: normal affect, normal mood - Skin Skin exam: Present: dry, warm. Absent: rash Internal Med - H&P Results - Labs CBC & Chem 7: 12/01/17 08:31 12/01/17 08:31 Labs: Cardiac Enzymes 12/01/17 Range/Units 14:54 Troponin I 0.58 H* (< 0.04) ng/mL - EKG Data -: EKG Interpreted by Myself - EKG Data EKG comments: 12/01/17 17:02 Atrial Fibrillation with RVR - Diagnostic Studies Chest x-ray Status: image reviewed by me (no appreciable infiltrate; COPD findings) - Attending Attestation I discussed KENAITZE, PMH, ROS, lab data, and exam findings with Yeny Cooper CNP. I then saw and examined patient independently as well. Patient is septic from gram negative pneumonia (partially treated Klebsiella and Pseudmonas) with recent hospitalization. BP is tenuous as is his respiratory status. Upon my assessment, patient family at bedside. He has improved with initial treatment, but he is still quite ill and at risk for acute decompensation. I discussed with patient and family his code status and his wishes are to be DNR-Arrest. Intubation and ICU management are OK with him, but he wishes no chest compressions, no defibrillation. In essence, he is DNR-Arrest. He and family verbalized understanding and agreement. CODE STATUS changed to reflect his wishes. Other than my comments above and noted exam findings, I agree with Yeny 's assessment and plan.
[2017-12-01] MEDS ORDERED: D5 IVPB SCH (15:00)
[2017-12-01] MEDS ORDERED: Vancomycin 750 MG in D5% in Water 250 ML IVPB SCH (15:00)
[2017-12-01] MEDS ORDERED: WATER IVPB SCH (15:00)
[2017-12-01] MEDS ORDERED: TOBRAMYCIN SULF IVPB SCH (15:00)
[2017-12-01] MEDS ORDERED: WATER IVPB ONE (15:30)
[2017-12-01] MEDS ORDERED: D5 IVPB ONE (15:30)
[2017-12-01] MEDS ORDERED: TOBRAMYCIN SULF IVPB ONE (15:30)
[2017-12-01] MEDS: Vancomycin 750 MG in D5% in Water 250 ML IVPB SCH (15:59)
[2017-12-01] MEDS: Levalbuterol Neb 1.25 MG/3 ML IH SCH ×2 (16:19→16:21)
--- NOTE | 2017-12-01 16:24 | Electrocardiograph Report ---
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
--- NOTE | 2017-12-01 16:24 | Electrocardiograph Report ---
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
[2017-12-01] MEDS ORDERED: MethylPREDNISolone 40 MG/ML VIAL IVP SCH (18:00)
[2017-12-01] MEDS: Piperacillin/Tazobactam 3.375 GM/200 ML BAG IVPB SCH ×2 (18:12→23:43)
[2017-12-01] MEDS: MethylPREDNISolone 40 MG/ML VIAL IVP SCH ×2 (18:27→23:42)
[2017-12-01] MEDS: dilTIAZem HCl 60 MG TABLET PO SCH (18:27)
[2017-12-01 20:08] LABS: Activated Partial Thrombo Time > 360.0 Seconds (26.0-36.0)
[2017-12-01 20:25] LABS: Heparin anti-factor XA UFH 1.03 IU/mL (0.30-0.70)
[2017-12-01] MEDS: Ipratropium/Albuterol Neb 3 ML IH SCH ×2 (21:33→23:58)
[2017-12-01] MEDS: Beclomethasone 80mcg MDI IH SCH (21:50)
[2017-12-02] MEDS ORDERED: Furosemide 40 MG/4 ML VIAL IVP ONE (02:52)
[2017-12-02] MEDS ORDERED: Ipratropium/Albuterol Neb 3 ML IH ONE (02:52)
[2017-12-02] MEDS: Ipratropium/Albuterol Neb 3 ML IH SCH ×5 (03:26→20:30)
[2017-12-02] MEDS: WATER IVPB SCH ×2 (05:43→18:08)
[2017-12-02] MEDS: TOBRAMYCIN SULF IVPB SCH ×2 (05:43→18:08)
[2017-12-02] MEDS: D5 IVPB SCH ×2 (05:43→18:08)
[2017-12-02] MEDS: MethylPREDNISolone 40 MG/ML VIAL IVP SCH (05:43)
[2017-12-02 06:38] LABS: Basophils % 0.1 %; Hematocrit 36.2 % (37.5-50.1); Hemoglobin 11.5 g/dL (12.9-16.9); Immature Granulocytes % 0.4 % (0-4); Lymphocytes # 0.2 K/mcL (0.6-4.6); Lymphocytes % 2.4 %; Mean Corpuscular HGB Conc 31.8 g/dL (31.6-35.5); Mean Corpuscular Hemoglobin 29.7 pg (28.0-33.3); Mean Corpuscular Volume 93.5 fL (83.0-100.0); Mean Platelet Volume 12.7 fL (9.4-12.4); Monocytes # 0.1 K/mcL (0.0-1.3); Monocytes % 1.3 %; Neutrophils # 8.1 K/mcL (1.6-8.9); Platelet Count 160 K/mcL (140-400); Red Blood Count 3.87 M/mcL (4.19-5.50); Red Cell Distribution Width 15.5 % (11.5-14.5); Segmented Neutrophils % 95.8 %
[2017-12-02 06:45] LABS: BUN/Creatinine Ratio 39 (6-26); Blood Urea Nitrogen 42 mg/dL (8-23); Calcium 8.8 mg/dL (8.6-10.3); Carbon Dioxide 24 mEq/L (23-29); Chloride 107 mEq/L (98-107); Glucose 152 mg/dL (70-105); Magnesium 2.1 mg/dL (1.6-2.6); Osmolality,Calculated 299 (280-300); Sodium 138 mEq/L (136-145); eGFR For African Americans > 60 (> 60); eGFR For Non-African Americans > 60 (> 60)
[2017-12-02] MEDS: Piperacillin/Tazobactam 3.375 GM/200 ML BAG IVPB SCH ×3 (07:38→23:52)
[2017-12-02] MEDS: Beclomethasone 80mcg MDI IH SCH ×2 (07:41→20:30)
[2017-12-02] MEDS: (Roflumilast [Daliresp] 500 MCG) PO SCH (08:20)
[2017-12-02] MEDS: dilTIAZem HCl 60 MG TABLET PO SCH (08:25)
[2017-12-02] MEDS: Aspirin 81 MG TAB.CHEW PO SCH (08:25)
--- NOTE | 2017-12-02 11:31 | Cardiology Progress Note ---
Date of Encounter: 12/02/17 Time of Encounter: 11:29 Assessment and Plan (1) Atrial fibrillation with RVR Current Visit: Yes Status: Acute New diagnosis--unclear chronicity. Recommend rate control strategy. Converted to oral cardizem last night. Avg HR 82 bpm over last 12 hours. HR in the 80's currently, afib. Would avoid BB due to severe COPD. TTE May 2017: EF 60-65%, no significant valvular dysfunction. TSH-normal. CHA2Ds Vasc= 3 (age, HTN). Discussed with patient and family, recommend full anticoagulation initially. Patient developed hematuria overnight and heparin gtt stopped. Continues to have bright red blood in waters. Hgb stable. Discussed with patient, he also decided to decline AC and use asa only after discussing with family. No AC at this time due to hematuria. Continue asa as tolerated. Discussed with primary team. Cardiology will sign off. Out-pt f/u in 2 weeks. [facility] will coordinate. (2) Elevated troponin Current Visit: Yes Status: Acute Mild troponin elevation in the setting of atrial fibrillation with RVR--HR 170s upon arrival. Likely secondary to demand ischemia. Patient denies chest pain, no ischemic ECG changes noted. Last TTE showed preserved LVEF, 60-65%. Repeat TTE pending. Continue asa, statin. No BB due to advanced lung disease (COPD/cancer). Discussion w patient/family: The assessment and plan as outlined above was discussed with the patient and/or family members who expressed understanding and agreement. All questions were answered. Thank you for involving us in the care of your patient. Please call with any questions. Subjective Principal diagnosis: atrial fibrillation with RVR Interval history: Patient c/o blood in his waters and pain in his bladder last night. Pain is now relieved. Heparin gtt was stopped. He denies chest pain or palpitations. Reports breathing is better. Objective Vital Signs, Last 4 Hours Resp Pulse Ox 12/02/17 11:19 18 95 12/02/17 07:43 18 94 General: Conversant, No Apparent Distress HEENT: Atraumatic, Normocephaly, Mucus Membranes Moist Neck: No JVD, Normal carotid pulses Cardiac: Other (irregular) Lungs: Other (RHonci and wheezes scattered throughout. ) Neuro: Alert and responsive, No focal deficits noted Abdomen: Soft, Non-Tender Skin: No rashes noted on visualized skin Musculoskeletal: No Chest Wall Tenderness Extremities: No Clubbing, No Cyanosis, No Edema, Normal Pulses Results 12/02/17 05:51 12/02/17 05:51 Lab Results 12/01/17 12/01/17 12/01/17 14:54 19:28 19:28 WBC Hgb Hct Plt Count APTT > 360.0 H* D Sodium Potassium Chloride Carbon Dioxide BUN Creatinine Glucose Calcium Magnesium Troponin I 0.58 H* 0.47 H* 12/02/17 12/02/17 05:51 05:51 WBC 8.4 Hgb 11.5 L Hct 36.2 L Plt Count 160 APTT Sodium 138 Potassium 4.0 Chloride 107 Carbon Dioxide 24 BUN 42 H Creatinine 1.08 Glucose 152 H Calcium 8.8 Magnesium 2.1 Troponin I - Imaging and Cardiology Stress Test: report reviewed - EKG Interpretation EKG results cardiology: personally reviewed Consult Discharge Plan - Plan [facility]errals: [facility] [Primary Care Provider] -
[2017-12-02] MEDS: methylPREDNISolone 125 MG/2 ML VIAL IVP SCH ×3 (11:42→23:53)
[2017-12-02] MEDS: Vancomycin 750 MG in D5% in Water 250 ML IVPB SCH (14:21)
[2017-12-02] MEDS ORDERED: Ketorolac 30 MG/ML VIAL IVP ONE (17:07)
--- NOTE | 2017-12-02 18:32 | Internal Med Progress Note ---
Date of Encounter: 12/02/17 Time of Encounter: 11:00 - Assessment and plan (1) HCAP (healthcare-associated pneumonia) Current Visit: No Status: Acute Assessment and plan: -Patient afebrile and without leukocytosis -Continue current medical management with IV vancomycin, IV Zosyn and IV tobramycin (2) Acute exacerbation of chronic obstructive airways disease Current Visit: No Status: Acute Assessment and plan: -We will continue current medical management with IV Solu-Medrol and DuoNeb's (3) Atrial fibrillation with RVR Current Visit: Yes Status: Acute Assessment and plan: -Cardiology consulted with recommendations for Aspirin, rate control with CCB. Patient declines anticoagulation; TTE - nml EF (4) CKD (chronic kidney disease) stage 3, GFR 30-59 ml/min Current Visit: No Status: Acute Assessment and plan: -Stable; continue to monitor. (5) HTN (hypertension) Current Visit: No Status: Chronic Assessment and plan: -Controlled; continue current management Qualifiers: Hypertension type: essential hypertension Qualified Code(s): I10 - Essential (primary) hypertension (6) Hematuria Current Visit: Yes Status: Acute Assessment and plan: -Suspect secondary to Lacy catheter insertion on heparin; heparin discontinued and will monitor Qualifiers: Qualified Code(s): R31.9 - Hematuria, unspecified (7) DVT prophylaxis Current Visit: No Status: Acute Assessment and plan: -Anticoagulation held due to the above - Subjective Interval history: Patient with hematuria this morning on anticoagulation therapy with recent insertion of Lacy catheter Patient now rate controlled on beta pablo - Constitutional Vitals: Temp Pulse Resp BP Pulse Ox 97.5 F L 81 20 112/75 94 12/02/17 15:07 12/02/17 15:07 12/02/17 16:16 12/02/17 15:07 12/02/17 16:16 General appearance: Present: cooperative, mild distress, A&O X 3, pleasant - Respiratory Respiratory exam: Present: CTAB. Absent: accessory muscle use, rales, rhonchi, wheezes - Cardiovascular Cardiovascular exam: Present: RRR, +S1, +S2. Absent: diastolic murmur, gallop, rubs, systolic murmur Internal Medicine: Result - Labs CBC & Chem 7: 12/02/17 05:51 12/02/17 05:51 Labs: Short CBC 12/02/17 Range/Units 05:51 WBC 8.4 (4.3-11.1) K/mcL Hgb 11.5 L (12.9-16.9) g/dL Hct 36.2 L (37.5-50.1) % Plt Count 160 (140-400) K/mcL Neutrophils # 8.1 (1.6-8.9) K/mcL BMP 12/02/17 05:51 Sodium 138 Potassium 4.0 Chloride 107 Carbon Dioxide 24 BUN 42 H Creatinine 1.08 Glucose 152 H Calcium 8.8 Cardiac Enzymes 12/01/17 Range/Units 19:28 Troponin I 0.47 H* (< 0.04) ng/mL - ABG Interpretation ABG results: PT/INR, D-dimer PT 11.5 Seconds (9.4-12.1) 12/01/17 08:31 - Impressions Impressions Echocardiogram 12/01/17 13:29 Impressions: LVEF 65%. Normal LV chamber size, wall thickness and function. Asymmetric hypertrophy of the basal septum. Indeterminate diastolic function. Normal right ventricular structure and function. Mild mitral regurgitation. Mild pulmonary hypertension. Findings: Study Quality * Technically adequate exam. ECG Findings * Atrial fibrillation. Left Ventricle * LVEF 65%. * Normal LV chamber size, wall thickness and function. * Asymmetric hypertrophy of the basal septum. * Indeterminate diastolic function. Right Ventricle * Normal right ventricular structure and function. Left Atrium * Mildly dilated left atrium. Right Atrium * Normal right atrial size. Interatrial Septum * No evidence of PFO by color Doppler. Aortic Valve * Trileaflet aortic valve. * Mildly sclerotic aortic valve leaflets. * Trace aortic regurgitation. * No aortic stenosis. Mitral Valve * Normal mitral valve structure. * Mild mitral regurgitation. * No mitral stenosis. Tricuspid Valve * Normal tricuspid valve structure and function. * Trace tricuspid regurgitation. * Mild pulmonary hypertension. Pulmonic Valve * Normal pulmonic valve structure and function. * No pulmonic regurgitation. Aorta * Normally sized aortic root. Pericardium * The pericardium appears normal. IVC * Normal IVC dimensions and inspiratory collapse. Pulmonary Artery * Normal visualized portions of the main pulmonary artery. Consult Discharge Plan - Plan [facility]errals: [facility] [Primary Care Provider] -
[2017-12-03] MEDS: Ipratropium/Albuterol Neb 3 ML IH SCH ×7 (00:43→23:45)
[2017-12-03] MEDS: TOBRAMYCIN SULF IVPB SCH (05:56)
[2017-12-03] MEDS: methylPREDNISolone 125 MG/2 ML VIAL IVP SCH ×3 (05:56→17:41)
[2017-12-03] MEDS: D5 IVPB SCH (05:56)
[2017-12-03] MEDS: WATER IVPB SCH (05:56)
[2017-12-03] MEDS: dilTIAZem HCl 60 MG TABLET PO SCH (07:43)
[2017-12-03] MEDS: Aspirin 81 MG TAB.CHEW PO SCH (07:44)
[2017-12-03] MEDS: Piperacillin/Tazobactam 3.375 GM/200 ML BAG IVPB SCH ×2 (07:44→17:42)
[2017-12-03] MEDS: (Roflumilast [Daliresp] 500 MCG) PO SCH (07:45)
[2017-12-03] MEDS: Beclomethasone 80mcg MDI IH SCH ×2 (07:54→23:45)
[2017-12-03 09:05] LABS: Basophils % 0.1 %; Hematocrit 34.1 % (37.5-50.1); Hemoglobin 11.2 g/dL (12.9-16.9); Immature Granulocytes % 0.3 % (0-4); Lymphocytes # 0.3 K/mcL (0.6-4.6); Lymphocytes % 2.9 %; Mean Corpuscular HGB Conc 32.8 g/dL (31.6-35.5); Mean Corpuscular Hemoglobin 30.1 pg (28.0-33.3); Mean Corpuscular Volume 91.7 fL (83.0-100.0); Mean Platelet Volume 12.4 fL (9.4-12.4); Monocytes # 0.2 K/mcL (0.0-1.3); Monocytes % 2.3 %; Neutrophils # 8.3 K/mcL (1.6-8.9); Platelet Count 137 K/mcL (140-400); Red Blood Count 3.72 M/mcL (4.19-5.50); Red Cell Distribution Width 15.1 % (11.5-14.5); Segmented Neutrophils % 94.4 %
[2017-12-03 09:20] LABS: BUN/Creatinine Ratio 36 (6-26); Blood Urea Nitrogen 37 mg/dL (8-23); Calcium 8.6 mg/dL (8.6-10.3); Carbon Dioxide 28 mEq/L (23-29); Chloride 108 mEq/L (98-107); Glucose 144 mg/dL (70-105); Osmolality,Calculated 301 (280-300); Potassium 3.6 mEq/L (3.5-5.1); Sodium 140 mEq/L (136-145); eGFR For African Americans > 60 (> 60); eGFR For Non-African Americans > 60 (> 60)
[2017-12-03] MEDS: Vancomycin 750 MG in D5% in Water 250 ML IVPB SCH (14:51)
--- NOTE | 2017-12-03 17:11 | Discharge Summary ---
Date of Encounter: 12/03/17 Time of Encounter: 11:00 - Discharge Diagnosis (1) HCAP (healthcare-associated pneumonia) Status: Acute (2) Acute exacerbation of chronic obstructive airways disease Status: Acute (3) Atrial fibrillation with RVR Status: Acute (4) CKD (chronic kidney disease) stage 3, GFR 30-59 ml/min Status: Acute (5) HTN (hypertension) Status: Chronic Qualifiers: Hypertension type: essential hypertension Qualified Code(s): I10 - Essential (primary) hypertension (6) Hematuria Status: Acute Qualifiers: Qualified Code(s): R31.9 - Hematuria, unspecified (7) DVT prophylaxis Status: Acute - Discharge Medications Home Medications: Aspirin 81 mg PO QAM 08/08/15 [History] Metoprolol [Lopressor] 25 mg PO BID 08/08/15 [History] Mometasone Furoate [Asmanex Hfa] 1 puff IH BID 08/08/15 [History] Olodaterol HCl [Striverdi Respimat] 2 puff IH DAILY 10/27/16 [History] Roflumilast [Daliresp] 500 mcg PO DAILY 06/04/17 [History] Secukinumab [Cosentyx Pen] 300 mg SQ QMONTH 06/04/17 [History] Carboxymethylcellulose Sodium [Refresh Liquigel] 1 drop BOTH EYES BID PRN [History] Lactose-Reduced Food [Ensure Plus] 1 bottle PO DAILY 12/01/17 [History] Levalbuterol [Xopenex INH] 2 puff IH Q6H PRN 12/01/17 [History] Losartan [Cozaar] 25 mg PO BID 12/01/17 [History] Naproxen [Naprosyn] 500 mg PO BID PRN 12/01/17 [History] Omeprazole [PriLOSEC] 20 mg PO BIDAC 12/01/17 [History] predniSONE [PredniSONE] See Taper PO DAILY 12/01/17 [History] Allergies/Adverse Reactions: 3 Allergy/AdvReac Type Severity Reaction Status Date / Time budesonide [From Symbicort] Allergy Swelling Verified 11/25/17 23:35 of Lip/Tongue/Throat ceftriaxone Allergy See Verified 11/25/17 23:35 Comments codeine Allergy Rash Verified 11/25/17 23:35 levofloxacin Allergy Rash Verified 11/25/17 23:35 moxifloxacin Allergy Anaphylaxis Verified 11/25/17 23:35 tiotropium Allergy Swelling Verified 11/25/17 23:35 [From Spiriva with of HandiHaler] Lip/Tongue/Throat doxycycline AdvReac unable to Verified 11/25/17 23:35 take due to psoriasis medicine Procedures/tests Complete & Pending: Procedures Performed prior 72 hours Category Date Time Status EV echocardiogram Routine Y 12/01/17 13:29 Completed Date of admission: 12/01/17 12:43 Primary care physician: PCP [place] Consults: 12/01/17 13:28 Consult to Lead Case Manager [CONS] Routine Reason for SW Consult: discharge planning 12/01/17 13:29 Consult to Cardiology [CONS] Routine Comment: Consulting Provider: Cardiology [place] Reason for Consult: new onset afib Time Notified: 13:29 Call Completed: Yes 12/01/17 14:10 Consult to Nutrition [CONS] Routine Comment: poor intake Consulting Provider: NUTRITION Reason for Dietary Consult: MST Score - Patient Status Disposition: Home, Self-Care Condition: Fair - Discharge Instructions Follow Up With: Bladimir Donahue MD [Partnered Physician] - 12/20/17 1:00 pm [place],PCP [Primary Care Provider] - 12/15/17 10:15 am (PLEASE FAX DISCHARGE SUMMARY AND PHYSICIAN VERONICA, NURSE VERONICA TO [phone] [facility].) Hospital course: Mr. Ho is a 82 year old male - Time Spent with Patient Total time spent providing and/or coordinating discharge services: - Constitutional Vitals: Temp Pulse Resp BP Pulse Ox 98.2 F 88 18 136/74 96 12/03/17 11:24 12/03/17 11:24 12/03/17 16:06 12/03/17 11:24 12/03/17 16:06 General appearance: Present: cooperative, mild distress, A&O X 3, pleasant
--- NOTE | 2017-12-03 18:53 | Internal Med Progress Note ---
Date of Encounter: 12/03/17 Time of Encounter: 11:00 - Assessment and plan (1) HCAP (healthcare-associated pneumonia) Current Visit: No Status: Acute Assessment and plan: -Patient afebrile and without leukocytosis -Suspicion for Pseudomonas; patient's cultures positive for this on 11/20/17 -Continue current medical management with IV vancomycin and IV Zosyn. (2) Acute exacerbation of chronic obstructive airways disease Current Visit: No Status: Acute Assessment and plan: -Patient symptoms have dramatically improved. -Will continue current medical management with IV Solu-Medrol and DuoNeb's (3) Atrial fibrillation with RVR Current Visit: Yes Status: Acute Assessment and plan: -Cardiology consulted with recommendations for Aspirin, rate control with CCB. Patient declines anticoagulation; TTE - nml EF (4) CKD (chronic kidney disease) stage 3, GFR 30-59 ml/min Current Visit: No Status: Acute Assessment and plan: -Stable; continue to monitor. (5) HTN (hypertension) Current Visit: No Status: Chronic Assessment and plan: -Controlled; continue current management Qualifiers: Hypertension type: essential hypertension Qualified Code(s): I10 - Essential (primary) hypertension (6) Hematuria Current Visit: Yes Status: Acute Assessment and plan: -Suspect secondary to Lacy catheter insertion on heparin; heparin discontinued and will monitor Qualifiers: Qualified Code(s): R31.9 - Hematuria, unspecified (7) DVT prophylaxis Current Visit: No Status: Acute Assessment and plan: -Anticoagulation held due to the above - Subjective Interval history: Patient with resolved hematuria this morning Patient now rate controlled on beta pablo Patient feeling better with IV antibiotics - Constitutional Vitals: Temp Pulse Resp BP Pulse Ox 97.9 F 86 15 148/91 96 12/03/17 17:31 12/03/17 17:31 12/03/17 17:31 12/03/17 17:31 12/03/17 17:31 General appearance: Present: cooperative, mild distress, A&O X 3, pleasant - Respiratory Respiratory exam: Present: CTAB. Absent: accessory muscle use, rales, rhonchi, wheezes - Cardiovascular Cardiovascular exam: Present: RRR, +S1, +S2. Absent: diastolic murmur, gallop, rubs, systolic murmur Internal Medicine: Result - Labs CBC & Chem 7: 12/03/17 08:09 12/03/17 08:09 Labs: Short CBC 12/03/17 Range/Units 08:09 WBC 8.8 (4.3-11.1) K/mcL Hgb 11.2 L (12.9-16.9) g/dL Hct 34.1 L (37.5-50.1) % Plt Count 137 L (140-400) K/mcL Neutrophils # 8.3 (1.6-8.9) K/mcL BMP 12/03/17 08:09 Sodium 140 Potassium 3.6 Chloride 108 H Carbon Dioxide 28 BUN 37 H Creatinine 1.04 Glucose 144 H Calcium 8.6 - ABG Interpretation ABG results: PT/INR, D-dimer PT 11.5 Seconds (9.4-12.1) 12/01/17 08:31 Consult Discharge Plan - Plan Referrals: Bladimir Donahue MD [Partnered Physician] - 12/20/17 1:00 pm [place],PCP [Primary Care Provider] - 12/15/17 10:15 am (PLEASE FAX DISCHARGE SUMMARY AND PHYSICIAN VERONICA, NURSE VERONICA TO [phone] [facility].)
[2017-12-04] MEDS: methylPREDNISolone 125 MG/2 ML VIAL IVP SCH ×5 (00:30→23:37)
[2017-12-04] MEDS: Piperacillin/Tazobactam 3.375 GM/200 ML BAG IVPB SCH ×4 (00:30→23:37)
[2017-12-04] MEDS: Ipratropium/Albuterol Neb 3 ML IH SCH ×6 (03:48→23:52)
[2017-12-04] MEDS ORDERED: *HR* Metoprolol 5 MG/5 ML VIAL IVP ONE ×2 (04:38→04:50)
[2017-12-04] MEDS ORDERED: Nitroglycerin 1 INCH/GM PACKET TP ONE (06:36)
[2017-12-04] MEDS: dilTIAZem HCl 60 MG TABLET PO SCH (07:43)
[2017-12-04] MEDS: Aspirin 81 MG TAB.CHEW PO SCH (07:44)
[2017-12-04] MEDS: (Roflumilast [Daliresp] 500 MCG) PO SCH (07:45)
[2017-12-04 09:19] LABS: Basophils % 0.1 %; Hematocrit 34.4 % (37.5-50.1); Hemoglobin 11.3 g/dL (12.9-16.9); Lymphocytes # 0.3 K/mcL (0.6-4.6); Lymphocytes % 1.9 %; Mean Corpuscular HGB Conc 32.8 g/dL (31.6-35.5); Mean Corpuscular Hemoglobin 30.1 pg (28.0-33.3); Mean Corpuscular Volume 91.7 fL (83.0-100.0); Mean Platelet Volume 12.5 fL (9.4-12.4); Monocytes # 0.3 K/mcL (0.0-1.3); Neutrophils # 12.6 K/mcL (1.6-8.9); Platelet Count 176 K/mcL (140-400); Red Blood Count 3.75 M/mcL (4.19-5.50); Red Cell Distribution Width 15.2 % (11.5-14.5)
[2017-12-04 09:47] LABS: BUN/Creatinine Ratio 37 (6-26); Blood Urea Nitrogen 37 mg/dL (8-23); Calcium 8.6 mg/dL (8.6-10.3); Carbon Dioxide 25 mEq/L (23-29); Chloride 107 mEq/L (98-107); Glucose 107 mg/dL (70-105); Osmolality,Calculated 299 (280-300); Potassium 3.6 mEq/L (3.5-5.1); Sodium 140 mEq/L (136-145); eGFR For African Americans > 60 (> 60); eGFR For Non-African Americans > 60 (> 60)
[2017-12-04] MEDS: Beclomethasone 80mcg MDI IH SCH ×2 (10:14→19:45)
[2017-12-04] MEDS: Furosemide 20 MG/2 ML VIAL IVP SCH (17:00)
[2017-12-04] MEDS: Vancomycin 750 MG in D5% in Water 250 ML IVPB SCH (17:01)
--- NOTE | 2017-12-04 18:59 | Internal Med Progress Note ---
Date of Encounter: 12/04/17 Time of Encounter: 11:00 - Assessment and plan (1) HCAP (healthcare-associated pneumonia) Current Visit: No Status: Acute Assessment and plan: -Patient afebrile and without leukocytosis -Suspicion for Pseudomonas; patient's cultures positive for this on 11/20/17 -Continue current medical management with IV vancomycin and IV Zosyn. (2) Acute exacerbation of chronic obstructive airways disease Current Visit: No Status: Acute Assessment and plan: -Patient symptoms have dramatically improved. -Will continue current medical management with IV Solu-Medrol and DuoNeb's (3) Atrial fibrillation with RVR Current Visit: Yes Status: Acute Assessment and plan: -Cardiology consulted with recommendations for Aspirin, rate control with CCB. Patient declines anticoagulation; TTE - nml EF (4) CKD (chronic kidney disease) stage 3, GFR 30-59 ml/min Current Visit: No Status: Acute Assessment and plan: -Stable; continue to monitor. (5) HTN (hypertension) Current Visit: No Status: Chronic Assessment and plan: -Blood pressures were elevated this morning and had to be given IV hydralazine -Continue to monitor Qualifiers: Hypertension type: essential hypertension Qualified Code(s): I10 - Essential (primary) hypertension (6) Hematuria Current Visit: Yes Status: Acute Assessment and plan: -Resolved Qualifiers: Hematuria type: unspecified type Qualified Code(s): R31.9 - Hematuria, unspecified (7) DVT prophylaxis Current Visit: No Status: Acute Assessment and plan: -Anticoagulation held due to the above - Subjective Interval history: Blood pressure is elevated this morning and had to be given IV hydralazine Patient feeling better with IV antibiotics - Constitutional Vitals: Temp Pulse Resp BP Pulse Ox 98 F 79 24 163/88 96 12/04/17 13:17 12/04/17 14:15 12/04/17 15:49 12/04/17 14:15 12/04/17 15:49 General appearance: Present: cooperative, mild distress, A&O X 3, pleasant - Respiratory Respiratory exam: Present: CTAB. Absent: accessory muscle use, rales, rhonchi, wheezes - Cardiovascular Cardiovascular exam: Present: RRR, +S1, +S2. Absent: diastolic murmur, gallop, rubs, systolic murmur Internal Medicine: Result - Labs CBC & Chem 7: 12/04/17 08:37 12/04/17 08:37 Labs: Short CBC 12/04/17 Range/Units 08:37 WBC 13.4 H D (4.3-11.1) K/mcL Hgb 11.3 L (12.9-16.9) g/dL Hct 34.4 L (37.5-50.1) % Plt Count 176 (140-400) K/mcL Neutrophils # 12.6 H (1.6-8.9) K/mcL BMP 12/04/17 08:37 Sodium 140 Potassium 3.6 Chloride 107 Carbon Dioxide 25 BUN 37 H Creatinine 1.00 Glucose 107 H Calcium 8.6 - ABG Interpretation ABG results: PT/INR, D-dimer PT 11.5 Seconds (9.4-12.1) 12/01/17 08:31 Consult Discharge Plan - Plan Referrals: Bladimir Donahue MD [Partnered Physician] - 12/20/17 1:00 pm [place],PCP [Primary Care Provider] - 12/15/17 10:15 am (PLEASE FAX DISCHARGE SUMMARY AND PHYSICIAN VERONICA, NURSE VERONICA TO [phone] [facility].) Prescriptions: Piperacillin/Tazobactam [Zosyn] 4.5 gm IVPB BID #30 vial
[2017-12-04] MEDS: hydrOXYzine pamoate 25 MG CAPSULE PO SCH (23:38)
[2017-12-05] MEDS: Ipratropium/Albuterol Neb 3 ML IH SCH ×6 (03:36→23:12)
[2017-12-05] MEDS ORDERED: *HR* Metoprolol 5 MG/5 ML VIAL IVP ONE ×2 (03:40→04:30)
[2017-12-05] MEDS: Vancomycin 750 MG in D5% in Water 250 ML IVPB SCH ×2 (05:06→15:28)
[2017-12-05] MEDS: methylPREDNISolone 125 MG/2 ML VIAL IVP SCH ×4 (06:02→23:32)
[2017-12-05] MEDS: Beclomethasone 80mcg MDI IH SCH ×2 (08:38→20:36)
[2017-12-05] MEDS: Piperacillin/Tazobactam 3.375 GM/200 ML BAG IVPB SCH ×3 (09:00→23:32)
[2017-12-05] MEDS: Furosemide 20 MG/2 ML VIAL IVP SCH ×2 (09:03→15:29)
[2017-12-05] MEDS: Aspirin 81 MG TAB.CHEW PO SCH (09:03)
[2017-12-05] MEDS: dilTIAZem HCl 60 MG TABLET PO SCH (09:03)
[2017-12-05] MEDS: (Roflumilast [Daliresp] 500 MCG) PO SCH (09:10)
[2017-12-05 10:45] LABS: Basophils % 0.2 %; Hematocrit 36.7 % (37.5-50.1); Hemoglobin 11.8 g/dL (12.9-16.9); Immature Granulocytes % 4.7 % (0-4); Lymphocytes # 0.3 K/mcL (0.6-4.6); Mean Corpuscular HGB Conc 32.2 g/dL (31.6-35.5); Mean Corpuscular Hemoglobin 29.4 pg (28.0-33.3); Mean Corpuscular Volume 91.5 fL (83.0-100.0); Mean Platelet Volume 11.8 fL (9.4-12.4); Monocytes # 0.3 K/mcL (0.0-1.3); Monocytes % 3.3 %; Neutrophils # 9.2 K/mcL (1.6-8.9); Platelet Count 174 K/mcL (140-400); Red Blood Count 4.01 M/mcL (4.19-5.50); Red Cell Distribution Width 14.9 % (11.5-14.5); Segmented Neutrophils % 88.8 %
[2017-12-05 11:05] LABS: BUN/Creatinine Ratio 38 (6-26); Blood Urea Nitrogen 41 mg/dL (8-23); Calcium 8.7 mg/dL (8.6-10.3); Carbon Dioxide 27 mEq/L (23-29); Chloride 104 mEq/L (98-107); Glucose 120 mg/dL (70-105); Osmolality,Calculated 303 (280-300); Potassium 3.1 mEq/L (3.5-5.1); Sodium 141 mEq/L (136-145); eGFR For African Americans > 60 (> 60); eGFR For Non-African Americans > 60 (> 60)
[2017-12-05] MEDS ORDERED: Ipratropium/Albuterol Neb 3 ML IH ONE (15:09)
--- NOTE | 2017-12-05 19:07 | Discharge Summary ---
Date of Encounter: 12/05/17 Time of Encounter: 11:00 - Discharge Diagnosis (1) HCAP (healthcare-associated pneumonia) Priority: Primary Status: Acute (2) Acute exacerbation of chronic obstructive airways disease Priority: Primary Status: Acute (3) Atrial fibrillation with RVR Priority: Primary Status: Acute (4) CKD (chronic kidney disease) stage 3, GFR 30-59 ml/min Priority: Secondary Status: Acute (5) HTN (hypertension) Priority: Secondary Status: Chronic Qualifiers: Hypertension type: essential hypertension Qualified Code(s): I10 - Essential (primary) hypertension (6) Hematuria Priority: Secondary Status: Acute Qualifiers: Hematuria type: unspecified type Qualified Code(s): R31.9 - Hematuria, unspecified - Discharge Medications Prescriptions: dilTIAZem HCl [Cardizem] 120 mg PO DAILY #60 tablet Upogmrwywoiq-Rnpo-Hiorhpoy,Iso [Zosyn 3.375 gm/50 ml Galaxy] 3.375 gm IV Q8H 10 Days #30 froz.piggy Home Medications: Aspirin 81 mg PO QAM 08/08/15 [History] Mometasone Furoate [Asmanex Hfa] 1 puff IH BID 08/08/15 [History] Olodaterol HCl [Striverdi Respimat] 2 puff IH DAILY 10/27/16 [History] Roflumilast [Daliresp] 500 mcg PO DAILY 06/04/17 [History] Secukinumab [Cosentyx Pen] 300 mg SQ QMONTH 06/04/17 [History] Carboxymethylcellulose Sodium [Refresh Liquigel] 1 drop BOTH EYES BID PRN [History] Lactose-Reduced Food [Ensure Plus] 1 bottle PO DAILY 12/01/17 [History] Levalbuterol [Xopenex INH] 2 puff IH Q6H PRN 12/01/17 [History] Losartan [Cozaar] 25 mg PO BID 12/01/17 [History] Naproxen [Naprosyn] 500 mg PO BID PRN 12/01/17 [History] Omeprazole [PriLOSEC] 20 mg PO BIDAC 12/01/17 [History] predniSONE [PredniSONE] See Taper PO DAILY 12/01/17 [History] Hrblzyhxidsb-Hzao-Gpvatfaq,Iso [Zosyn 3.375 gm/50 ml Galaxy] 3.375 gm IV Q8H 10 Days #30 froz.piggy 12/05/17 [Rx] dilTIAZem HCl [Cardizem] 120 mg PO DAILY #60 tablet 12/05/17 [Rx] Allergies/Adverse Reactions: 3 Allergy/AdvReac Type Severity Reaction Status Date / Time budesonide [From Symbicort] Allergy Swelling Verified 11/25/17 23:35 of Lip/Tongue/Throat ceftriaxone Allergy See Verified 11/25/17 23:35 Comments codeine Allergy Rash Verified 11/25/17 23:35 levofloxacin Allergy Rash Verified 11/25/17 23:35 moxifloxacin Allergy Anaphylaxis Verified 11/25/17 23:35 tiotropium Allergy Swelling Verified 11/25/17 23:35 [From Spiriva with of HandiHaler] Lip/Tongue/Throat doxycycline AdvReac unable to Verified 11/25/17 23:35 take due to psoriasis medicine Procedures/tests Complete & Pending: Procedures Performed prior 72 hours Category Date Time Status EKG [ECG 12 lead ECG] [ECG] Routine Y 12/04/17 04:49 Ordered EKG [ECG 12 lead ECG] [ECG] Stat Y 12/04/17 04:46 Ordered Date of admission: 12/01/17 12:43 Primary care physician: PCP [place] Consults: 12/01/17 13:28 Consult to Sign Language Interpreter [CONS] Routine Reason for SW Consult: discharge planning 12/01/17 13:29 Consult to Cardiology [CONS] Routine Comment: Consulting Provider: Cardiology [place] Reason for Consult: new onset afib Time Notified: 13:29 Call Completed: Yes 12/01/17 14:10 Consult to Nutrition [CONS] Routine Comment: poor intake Consulting Provider: NUTRITION Reason for Dietary Consult: MST Score 12/04/17 09:55 Consult to Invasive Line Access Team [CONS] Routine Reason for Consult: HOME IV ATB Line Type: EPIV - Patient Status Disposition: Home Health Service Condition: Fair - Discharge Instructions Follow Up With: Bladimir Donahue MD [Partnered Physician] - 12/20/17 1:00 pm [place],PCP [Primary Care Provider] - 12/15/17 10:15 am (PLEASE FAX DISCHARGE SUMMARY AND PHYSICIAN VERONICA, NURSE VERONICA TO [phone] [facility].) Hospital course: Patient is an 82-year-old male with past medical history significant for chronic respiratory failure with COPD in addition to left lung squamous cell carcinoma, hyperlipidemia, hypertension and PAD who presented to the ER on due to shortness of breath. Patient was discharged from this hospital on November 20 AGAINST MEDICAL ADVICE after being treated for pneumonia. Sputum culture obtained did reveal Pseudomonas and Klebsiella. He was on Zosyn as well as steroids at home which he states he completed. He has been experiencing increasing shortness of breath over the past couple of days requiring increased use of his oxygen. He also has had a productive cough with thick yellow sputum. In the ER, EKG revealed A. fib RVR with rate of 140s. Patient was also hypotensive he was given fluids as well as started on Cardizem drip and placed on BiPAP. He was admitted for further workup and evaluation. During patients hospital stay, his atrial fibrillation with RVR converted on Cardizem drip and was placed on oral Cardizem per cardiology recommendations; his elevated troponins suspected to be secondary to demand ischemia. He also developed hematuria during his hospital stay but suspected to be secondary to anticoagulation for prophylaxis with addition of Lacy catheter insertion; hematuria resolved. Patient was treated for healthcare associated pneumonia with IV vancomycin and IV Zosyn and his symptoms of shortness of breath resolved. Patient will be discharged home to continue IV Zosyn for 10 additional days to complete a 14 day course. Follow up with his primary care provider in addition to urology. - Time Spent with Patient Total time spent providing and/or coordinating discharge services: Less than 30 minutes - Constitutional Vitals: Temp Pulse Resp BP Pulse Ox 98.2 F 94 22 171/76 93 12/05/17 15:40 12/05/17 15:40 12/05/17 16:28 12/05/17 15:40 12/05/17 16:28 General appearance: Present: cooperative, mild distress, A&O X 3, pleasant - Cardiovascular Cardiovascular exam: Present: RRR, +S1, +S2. Absent: diastolic murmur, gallop, rubs, systolic murmur - GI/Abdominal GI/Abdominal exam: Present: normal bowel sounds, soft, no peritoneal signs. Absent: distended, tenderness
--- NOTE | 2017-12-05 19:09 | Physician Discharge Referral ---
Home Health/Hosp Referral Info Transfer to: Home Health - Diagnosis (1) HCAP (healthcare-associated pneumonia) Priority: Primary Status: Acute (2) Acute exacerbation of chronic obstructive airways disease Priority: Primary Status: Acute (3) Atrial fibrillation with RVR Priority: Primary Status: Acute (4) CKD (chronic kidney disease) stage 3, GFR 30-59 ml/min Priority: Secondary Status: Acute (5) HTN (hypertension) Priority: Secondary Status: Chronic (6) Hematuria Priority: Secondary Status: Acute - Respiratory Orders Smoking Cessation: Smoking cessation has been advised. For more information, call the [place] Tobacco Quit Line at 3-055-XILM-NOW. - Services Needed Following services are medically necessary services: Nursing (Administration of IV Zosyn for a total of 10 days) - Transfer Medications Prescriptions: dilTIAZem HCl [Cardizem] 120 mg PO DAILY #60 tablet Aumyhwwmwzap-Jinb-Rqsjoych,Iso [Zosyn 3.375 gm/50 ml Galaxy] 3.375 gm IV Q8H 10 Days #30 froz.piggy Home Medications: Aspirin 81 mg PO QAM 08/08/15 [History] Mometasone Furoate [Asmanex Hfa] 1 puff IH BID 08/08/15 [History] Olodaterol HCl [Striverdi Respimat] 2 puff IH DAILY 10/27/16 [History] Roflumilast [Daliresp] 500 mcg PO DAILY 06/04/17 [History] Secukinumab [Cosentyx Pen] 300 mg SQ QMONTH 06/04/17 [History] Carboxymethylcellulose Sodium [Refresh Liquigel] 1 drop BOTH EYES BID PRN [History] Lactose-Reduced Food [Ensure Plus] 1 bottle PO DAILY 12/01/17 [History] Levalbuterol [Xopenex INH] 2 puff IH Q6H PRN 12/01/17 [History] Losartan [Cozaar] 25 mg PO BID 12/01/17 [History] Naproxen [Naprosyn] 500 mg PO BID PRN 12/01/17 [History] Omeprazole [PriLOSEC] 20 mg PO BIDAC 12/01/17 [History] predniSONE [PredniSONE] See Taper PO DAILY 12/01/17 [History] Ajljwsdtsisr-Tycm-Uffxehxs,Iso [Zosyn 3.375 gm/50 ml Galaxy] 3.375 gm IV Q8H 10 Days #30 froz.piggy 12/05/17 [Rx] dilTIAZem HCl [Cardizem] 120 mg PO DAILY #60 tablet 12/05/17 [Rx] Allergies/Adverse Reactions: 3 Allergy/AdvReac Type Severity Reaction Status Date / Time budesonide [From Symbicort] Allergy Swelling Verified 11/25/17 23:35 of Lip/Tongue/Throat ceftriaxone Allergy See Verified 11/25/17 23:35 Comments codeine Allergy Rash Verified 11/25/17 23:35 levofloxacin Allergy Rash Verified 11/25/17 23:35 moxifloxacin Allergy Anaphylaxis Verified 11/25/17 23:35 tiotropium Allergy Swelling Verified 11/25/17 23:35 [From Spiriva with of HandiHaler] Lip/Tongue/Throat doxycycline AdvReac unable to Verified 11/25/17 23:35 take due to psoriasis medicine Certification: Further, I certify that my clinical findings support that this patient is homebound (i.e. absences from home require considerable and taxing effort and are for medical reasons or sikhism services or infrequently or short duration when for other reasons) because: Homebound Reason: Leaving home requires considerable and taxing effort due to condition Attestation: My signature below is to certify that this patient is under my care and that I, or nurse practitioner, or a physician's entry level marketing assistant working with me, has a face-to -face encounter with this patient.
[2017-12-05] MEDS: hydrOXYzine pamoate 25 MG CAPSULE PO SCH (20:58)
[2017-12-06] MEDS: Ipratropium/Albuterol Neb 3 ML IH SCH ×4 (03:25→15:42)
[2017-12-06] MEDS: methylPREDNISolone 125 MG/2 ML VIAL IVP SCH ×2 (06:12→11:20)
[2017-12-06] MEDS: Vancomycin 750 MG in D5% in Water 250 ML IVPB SCH (06:14)
[2017-12-06] MEDS: dilTIAZem HCl 60 MG TABLET PO SCH (09:23)
[2017-12-06] MEDS: Aspirin 81 MG TAB.CHEW PO SCH (09:23)
[2017-12-06] MEDS: Piperacillin/Tazobactam 3.375 GM/200 ML BAG IVPB SCH (09:24)
[2017-12-06] MEDS: Furosemide 20 MG/2 ML VIAL IVP SCH (09:24)
[2017-12-06] MEDS: (Roflumilast [Daliresp] 500 MCG) PO SCH (09:30)
--- NOTE | 2017-12-06 10:13 | Electrocardiograph Report ---
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
[2017-12-06 11:13] VITALS: BP 159/88
[2017-12-06] MEDS: Beclomethasone 80mcg MDI IH SCH (11:16)
[2017-12-06] MEDS ORDERED: Aminoglycoside Consult 1 EACH MC ONE (16:11)
--- NOTE | 2017-12-06 16:49 | Event Note ---
Date of Encounter: 12/06/17 Time of Encounter: 11:00 Patient here today [facility] for treatment of Pseudomonas infection [facility] never [facility] call and patient frustrated and wants to go home without prescription.
== END 2017-12-06 16:12 | disposition home health service (06) | DRG 193 ==
LOC: EMEROO 08:14 → SUATTDRO 12:43 → 2NNU 12:43
PROVIDERS: ADMIT Pediatrics; ATTEND Hospitalist

== ENCOUNTER 2017-12-13 21:18 | Inpatient (IN) ==
[2017-12-13] MEDS ORDERED: Albuterol 2.5 MG/3 ML NEBULIZER IH ONE ×2 (21:32→23:25)
[2017-12-13 21:35] LABS: Bilirubin,Urine Negative (Negative); Blood,Urine Small (Negative); Clarity,Urine Cloudy (Clear); Color,Urine Yellow (Yellow); Glucose,Urine (UA) Normal (Normal); Ketones,Urine Negative (Negative); Leukocyte Esterase,Urine Moderate (Negative); Nitrite,Urine Negative (Negative); PH,Urine 7.5 pH Units (5.0-8.0); Protein,Urine 30 mg/dL (Neg-Trace); Specific Gravity,Urine 1.006 (1.010-1.025); Urobilinogen,Urine Normal (Normal)
[2017-12-13 21:37] LABS: Bacteria,Urine None Seen per hpf (None-Few); Hyaline Casts,Urine None Seen per lpf (None-Few); Squamous Epithelial Cell,Urine None Seen per lpf (None-Few); WBC,Urine TNTC per hpf (0-3)
--- NOTE | 2017-12-13 21:38 | Emergency Department Note ---
Disposition Clinical Impression: Healthcare-associated pneumonia, Elevated troponin Lung cancer Qualifiers: Laterality: unspecified laterality Lung location: unspecified part of lung Qualified Code(s): C34.90 - Malignant neoplasm of unspecified part of unspecified bronchus or lung Disposition: Admitted As Inpatient Condition: Fair Time of Disposition: 23:12 General Adult HPI - General Chief complaint: ED Urogenital-Male Stated complaint: can't pee Time Seen by Provider: 12/13/17 21:21 Source: patient, EMS Mode of arrival: EMS Limitations: no limitations Nursing Notes Reviewed: Yes Vital Signs Reviewed: Yes - History of Present Illness HPI Narrative: 82-year-old male with a history of COPD, oxygen dependent on 2 L also takes prednisone at home, history of lung cancer contemplating hospice, ACS presents for evaluation of urinary retention. Patient states that he was recently admitted to [facility] for swelling of his lower legs. Patient states that when he was discharged she was given a water pill and took the water pill earlier today. Patient states he had difficulty time urinating. Noted pain in his lower abdomen. The patient was dribbling urine. Patient states that he has had them be catheterized in the past. Denies any nausea or vomiting. Patient's pain was noted in the lower abdomen. Patient states that he typically wears 2 L at baseline. Patient appears to be in mild respiratory distress. Patient denies any chest pain but does note some dyspnea. No fevers. Reports cough. Patient confirms that he wound not want to be intubated or undergo chest compressions if indicated. Pain Scale: 7 - Related Data Home Medications Medication Instructions Recorded Confirmed Aspirin 81 mg PO QAM 08/08/15 12/01/17 Mometasone Furoate [Asmanex Hfa] 1 puff IH BID 08/08/15 12/01/17 Olodaterol HCl [Striverdi Respimat] 2 puff IH DAILY 10/27/16 12/01/17 Roflumilast [Daliresp] 500 mcg PO DAILY 06/04/17 12/01/17 Secukinumab [Cosentyx Pen] 300 mg SQ QMONTH 06/04/17 12/01/17 Carboxymethylcellulose Sodium 1 drop BOTH EYES BID PRN 12/01/17 12/01/17 [Refresh Liquigel] Lactose-Reduced Food [Ensure Plus] 1 bottle PO DAILY 12/01/17 12/01/17 Levalbuterol [Xopenex INH] 2 puff IH Q6H PRN 12/01/17 12/01/17 Losartan [Cozaar] 25 mg PO BID 12/01/17 12/01/17 Naproxen [Naprosyn] 500 mg PO BID PRN 12/01/17 12/01/17 Omeprazole [PriLOSEC] 20 mg PO BIDAC 12/01/17 12/01/17 predniSONE [PredniSONE] See Taper PO DAILY 12/01/17 12/01/17 Previous Rx's Medication Instructions Recorded Moqidrjbvchg-Edox-Ogjkcasn,Iso 3.375 gm IV Q8H 10 Days #30 12/05/17 [Zosyn 3.375 gm/50 ml Galaxy] froz.piggy dilTIAZem HCl [Cardizem] 120 mg PO DAILY #60 tablet 12/05/17 Allergies Allergy/AdvReac Type Severity Reaction Status Date / Time budesonide [From Symbicort] Allergy Swelling Verified 11/25/17 23:35 of Lip/Tongue/Throat ceftriaxone Allergy See Verified 11/25/17 23:35 Comments codeine Allergy Rash Verified 11/25/17 23:35 levofloxacin Allergy Rash Verified 11/25/17 23:35 moxifloxacin Allergy Anaphylaxis Verified 11/25/17 23:35 tiotropium Allergy Swelling Verified 11/25/17 23:35 [From Spiriva with of HandiHaler] Lip/Tongue/Throat doxycycline AdvReac unable to Verified 11/25/17 23:35 take due to psoriasis medicine All systems ED: reviewed and negative except as stated. Constitutional: Reports: as per HPI. Denies: fever Eyes: Reports: as per HPI ENT ED: Reports: as per HPI Cardiovascular: Reports: as per HPI. Denies: chest pain Respiratory: Reports: as per HPI. Denies: dyspnea Gastrointestinal: Reports: as per HPI, abdominal pain. Denies: nausea, vomiting Genitourinary: Reports: as per HPI, urgency Musculoskeletal: Reports: as per HPI Integumentary: Reports: as per HPI Neurological: Reports: as per HPI Psychiatric: Reports: as per HPI Endocrine: Reports: as per HPI Hematological/Lymphatic: Reports: as per HPI Allergic/Immunologic: Reports: as per HPI Past Medical History - Past Medical History Medical history: Reports: asthma, cancer, COPD, GERD, hyperlipidemia, hypertension, peripheral artery disease, other Surgical history: Reports: vascular surgery Psychiatric history: Reports: anxiety - Social History Smoking Status: Former smoker Smokeless Tobacco Status: No Alcohol use: Reports: none Drug use: Reports: none Physical Exam - General Limitations: no limitations General appearance: alert, in no apparent distress, cachectic - Head Head exam: atraumatic, normocephalic, normal inspection - Eye Eye exam: Present: normal appearance, PERRL, EOMI - ENT ENT exam: normal exam, mucous membranes moist - Neck Neck exam: Present: normal inspection - Chest Chest inspection: Present: normal inspection, symmetric chest wall rise - Respiratory Respiratory exam: Present: accessory muscle use, prolonged expiratory phase, other (Diminished bilateral). Absent: normal lung sounds bilaterally - Cardiovascular Cardiovascular exam: Present: normal rhythm, tachycardia - Abdominal Exam Abdominal exam: Present: soft, Non-Tender, other (Reducible umbilical hernia the patient said his been present for years.). Absent: guarding, rebound - Extremities Exam Extremities exam: Present: normal inspection, pedal edema (2+ b/l) - Back Exam Back exam: Present: normal inspection - Neurological Exam Neurological exam: Present: alert, oriented X3 - Skin Skin exam: Present: warm, dry, intact, normal color Course Course Narrative: Patient seen and examined. Patient appear to be in moderate discomfort upon ED arrival. Patient is complaining of pain in his lower abdomen. They to urinary retention. Patient had a Lacy catheter placed immediately. With notable relief of pain. Patient does have a complex history including COPD with diagnosis of lung cancer not undergoing therapies contemplating hospice. Patient also reports some dyspnea. Denies any chest pain. Patient denies any other complaints. Patient states "I think I need a breathing treatment". Given the patient's signs and symptoms patient will get basic lab work looking at urine function as well as cardiac troponin. Patient noted EKG given the tachycardia and a chest x-ray. - Reevaluation(s) Reevaluation #1: Patient is breathing more comfortably following the albuterol treatment. Discussed plan of care. Patient states that he is contemplating hospice. Patient did wish to go home however does live alone with his who is critically ill and has generally taking care of himself. Patient ultimately agrees for inpatient admission and arrange hospice. Time: 22:50 Reevaluation #2: Patient states that he feels like he is working harder to breath, the patient will get repeat nebs as well as IV steroids and fluids. Patient declines any noninvasive positive pressure ventilation declines intubation if his breathing worsened. Time: 23:28 Vital Signs Temperature 98.3 F 12/13/17 21:26 Pulse Rate 111 12/13/17 21:26 Respiratory Rate 22 12/13/17 21:26 Blood Pressure 123/91 12/13/17 21:26 O2 Sat by Pulse Oximetry 92 12/13/17 21:26 Temperature 98.3 F 12/13/17 21:26 Pulse Rate 109 12/13/17 23:27 Respiratory Rate 22 12/13/17 23:35 Blood Pressure 139/85 12/13/17 23:27 O2 Sat by Pulse Oximetry 89 12/13/17 23:35 Oxygen Delivery Oxygen Delivery Nasal Cannula Medical Decision Making - MDM Narrative Medical decision making narrative: 82-year-old male with a history of end-stage COPD, lung cancer, ACS presents for evaluation of urinary retention. On exam the patient was in moderate respiratory discomfort. Patient states he is contemplating hospice. Patient did receive basic labs as well as EKG chest x-ray. Patient's UA shows too numerous to count WBCs without bacteria. Urine will be cultured. Patient did have urinary retention on exam initially which relieved with Lacy catheter insertion. Patient denies any fevers or cough. States that his breathing is near his baseline. His oxygen dependent at home. Patient labs showed elevated troponin which is decreasing from his recent hospitalization where he was evaluated by cardiology. Troponin is trending down and patient is not complaining of chest pain. Patient also had a recent echo of EF of 65%. Patient declined anticoagulation at that time. Patient labs reveal a leukocytosis as well as chest x-ray findings concerning for new infiltrates concerns for pneumonia. Patient does meet surgical criteria but likely source the lungs however patient was not given at 30 mL/kg fluid bolus given elevated troponin unknown heart function. Patient was recently hospitalized and needs covered for HCAP. Patient is considering hospice. Patient does live at home with his significant other who is also critically ill. Recommendations for admission and hospice consult and planning. Patient's been denying chest pain, and pulmonary embolism is on the differential of the patient declines to have any anticoagulation. Patient is agreeable to IV antibiotics and symptomatic treatment. This was discussed with the patient. Patient is agreeable for inpatient admission, hospice consult and discharge planning. - Lab Data Lab results reviewed: Yes I reviewed the patient's lab results. Result diagrams: 12/13/17 21:46 12/13/17 21:46 Lab Results 12/13/17 12/13/17 12/13/17 Range/Units 21:27 21:46 21:46 WBC 19.0 H (4.3-11.1) K/mcL RBC 4.19 (4.19-5.50) M/mcL Hgb 12.5 L (12.9-16.9) g/dL Hct 39.1 (37.5-50.1) % MCV 93.3 (83.0-100.0) fL MCH 29.8 (28.0-33.3) pg MCHC 32.0 (31.6-35.5) g/dL RDW 14.7 H (11.5-14.5) % Plt Count 213 (140-400) K/mcL MPV 12.1 (9.4-12.4) fL Immature Gran % 0.9 (0-4) % Seg Neutrophils % 88.5 % Lymphocytes % 5.6 % Monocytes % 4.2 % Eosinophils % 0.5 % Basophils % 0.3 % Neutrophils # 16.8 H (1.6-8.9) K/mcL Lymphocytes # 1.1 (0.6-4.6) K/mcL Monocytes # 0.8 (0.0-1.3) K/mcL Eosinophils # 0.1 (0.0-0.6) K/mcL Basophils # 0.1 (0.0-0.2) K/mcL Sodium 141 (136-145) mEq/L Potassium 3.3 L (3.5-5.1) mEq/L Chloride 98 (98-107) mEq/L Carbon Dioxide 35 H (23-29) mEq/L BUN 28 H (8-23) mg/dL Creatinine 1.02 (0.70-1.30) mg/dL Est GFR ( Amer) > 60 (> 60) Est GFR (Non-Af Amer) > 60 (> 60) BUN/Creatinine Ratio 27 H (6-26) Glucose 125 H (70-105) mg/dL Calculated Osmolality 299 (280-300) Calcium 9.1 (8.6-10.3) mg/dL Total Bilirubin 1.0 (0.3-1.0) mg/dL AST 13 (13-39) Units/L ALT 20 (7-52) Units/L Alkaline Phosphatase 81 (34-104) Units/L Troponin I (< 0.04) ng/mL B-Natriuretic Peptide (Less than 100) pg/mL Serum Total Protein 5.6 L (6.4-8.9) g/dL Albumin 2.9 L (3.5-5.7) g/dL Globulin 2.7 (2.4-3.5) g/dL Albumin/Globulin Ratio 1.1 (1.1-2.2) Urine Color Yellow (Yellow) Urine Clarity Cloudy A (Clear) Urine pH 7.5 (5.0-8.0) pH Units Ur Specific [place] 1.006 L (1.010-1.025) Urine Protein 30 H (Neg-Trace) mg/dL Urine Glucose (UA) Normal (Normal) mg/dL Urine Ketones Negative (Negative) mg/dL Urine Blood Small H (Negative) Urine Nitrite Negative (Negative) Urine Bilirubin Negative (Negative) Urine Urobilinogen Normal (Normal) mg/dL Ur Leukocyte Esterase Moderate H (Negative) Urine Microscopic RBC 5-15 H (0-3) per hpf Urine Microscopic WBC TNTC H (0-3) per hpf Ur Squamous Epith Cells None Seen (None-Few) per lpf Urine Bacteria None Seen (None-Few) per hpf Hyaline Casts None Seen (None-Few) per lpf Ur Culture Indicated? YES A (NO) 12/13/17 12/13/17 Range/Units 21:46 21:46 WBC (4.3-11.1) K/mcL RBC (4.19-5.50) M/mcL Hgb (12.9-16.9) g/dL Hct (37.5-50.1) % MCV (83.0-100.0) fL MCH (28.0-33.3) pg MCHC (31.6-35.5) g/dL RDW (11.5-14.5) % Plt Count (140-400) K/mcL MPV (9.4-12.4) fL Immature Gran % (0-4) % Seg Neutrophils % % Lymphocytes % % Monocytes % % Eosinophils % % Basophils % % Neutrophils # (1.6-8.9) K/mcL Lymphocytes # (0.6-4.6) K/mcL Monocytes # (0.0-1.3) K/mcL Eosinophils # (0.0-0.6) K/mcL Basophils # (0.0-0.2) K/mcL Sodium (136-145) mEq/L Potassium (3.5-5.1) mEq/L Chloride (98-107) mEq/L Carbon Dioxide (23-29) mEq/L BUN (8-23) mg/dL Creatinine (0.70-1.30) mg/dL Est GFR ( Amer) (> 60) Est GFR (Non-Af Amer) (> 60) BUN/Creatinine Ratio (6-26) Glucose (70-105) mg/dL Calculated Osmolality (280-300) Calcium (8.6-10.3) mg/dL Total Bilirubin (0.3-1.0) mg/dL AST (13-39) Units/L ALT (7-52) Units/L Alkaline Phosphatase (34-104) Units/L Troponin I 0.15 H* (< 0.04) ng/mL B-Natriuretic Peptide 301 H (Less than 100) pg/mL Serum Total Protein (6.4-8.9) g/dL Albumin (3.5-5.7) g/dL Globulin (2.4-3.5) g/dL Albumin/Globulin Ratio (1.1-2.2) Urine Color (Yellow) Urine Clarity (Clear) Urine pH (5.0-8.0) pH Units Ur Specific [place] (1.010-1.025) Urine Protein (Neg-Trace) mg/dL Urine Glucose (UA) (Normal) mg/dL Urine Ketones (Negative) mg/dL Urine Blood (Negative) Urine Nitrite (Negative) Urine Bilirubin (Negative) Urine Urobilinogen (Normal) mg/dL Ur Leukocyte Esterase (Negative) Urine Microscopic RBC (0-3) per hpf Urine Microscopic WBC (0-3) per hpf Ur Squamous Epith Cells (None-Few) per lpf Urine Bacteria (None-Few) per hpf Hyaline Casts (None-Few) per lpf Ur Culture Indicated? (NO) - Radiology Data Radiology results reviewed: Yes I reviewed the patient's radiology results. Chest X-Ray 12/13/17 21:32 IMPRESSION: Small new vague infiltrate within the right lower lobe and left mid lung which may represent pneumonia. Stable prominence of the interstitial markings likely represent chronic lung disease. Mild left mid lung calcified pleural plaques. D/ / 12/13/2017 22:27:08 Rosales Rangel MD / gwendolyn Interpreting Provider: Rosales Rangel MD - EKG Data EKG #1 EKG shows normal: sinus rhythm Rate: tachycardia Burdette/QRS: RBBB ST segment depression in: v2 When compared to previous EKG there are: changes noted Interpretation: nonspecific ST-T wave changes S.B.AJacklynRJacklyn - S.B.ASonny Situation: Demographics Background: Presenting Complaint Assessment: Vital Signs, Course and respsone to treatment, Patient/Family Expectation Recommendation: Barrier(s) to disposition, Recommendation based on pending studies, treatments, or consults S.B.ASonny Report Given to: Dr. Jurgen Whitten Repor Time: 23:16 Attestation Statement - Attestation Attestation: I, Sánchez Fried MD, personally evaluated this patient and discussed their management with the resident physician. I reviewed the resident's note and agree with the documented findings, medical decision making, and plan of care. 82-year-old male presents to the emergency department with a complaint of urinary retention for one day prior to arrival. He complains of dribbling with dysuria. No fever or flank pain. He does complain of some increased shortness of breath. He has a history of COPD and is on home oxygen. He reports that he has had uses home oxygen more and had to turn it up from 2 L to 4 L due to the increased shortness of breath. No chest pain. On examination patient is a well-developed thin elderly male in mild respiratory distress. He is alert and oriented 3. There is no cyanosis or diaphoresis. Breath sounds are markedly decreased bilaterally with scattered bilateral expiratory wheezes. Also some bibasilar rales. Heart is tachycardic and regular. Abdomen is soft with normal bowel sounds. There is moderate suprapubic and right lower abdominal tenderness. A Lacy catheter was placed with significant improvement in his abdominal discomfort from the urinary retention. Labs reviewed. Chest x-ray showed new bilateral infiltrates suggesting pneumonia. The hospitalist, Dr. Seaman, was consulted and accepted admission of the patient.
[2017-12-13 21:55] LABS: Basophils # 0.1 K/mcL (0.0-0.2); Basophils % 0.3 %; Eosinophils # 0.1 K/mcL (0.0-0.6); Eosinophils % 0.5 %; Hematocrit 39.1 % (37.5-50.1); Hemoglobin 12.5 g/dL (12.9-16.9); Immature Granulocytes % 0.9 % (0-4); Lymphocytes # 1.1 K/mcL (0.6-4.6); Lymphocytes % 5.6 %; Mean Corpuscular Hemoglobin 29.8 pg (28.0-33.3); Mean Corpuscular Volume 93.3 fL (83.0-100.0); Mean Platelet Volume 12.1 fL (9.4-12.4); Monocytes # 0.8 K/mcL (0.0-1.3); Monocytes % 4.2 %; Neutrophils # 16.8 K/mcL (1.6-8.9); Platelet Count 213 K/mcL (140-400); Red Blood Count 4.19 M/mcL (4.19-5.50); Red Cell Distribution Width 14.7 % (11.5-14.5); Segmented Neutrophils % 88.5 %
[2017-12-13 22:14] LABS: Alanine Aminotransferase 20 Units/L (7-52); Albumin 2.9 g/dL (3.5-5.7); Albumin/Globulin Ratio 1.1 (1.1-2.2); Alkaline Phosphatase 81 Units/L (34-104); Aspartate Amino Transferase 13 Units/L (13-39); BUN/Creatinine Ratio 27 (6-26); Blood Urea Nitrogen 28 mg/dL (8-23); Calcium 9.1 mg/dL (8.6-10.3); Carbon Dioxide 35 mEq/L (23-29); Chloride 98 mEq/L (98-107); Globulin 2.7 g/dL (2.4-3.5); Glucose 125 mg/dL (70-105); Osmolality,Calculated 299 (280-300); Potassium 3.3 mEq/L (3.5-5.1); Sodium 141 mEq/L (136-145); Total Protein 5.6 g/dL (6.4-8.9); eGFR For African Americans > 60 (> 60); eGFR For Non-African Americans > 60 (> 60)
[2017-12-13] MEDS ORDERED: Aspirin 81 MG TAB.CHEW PO ONE (22:46)
[2017-12-13] MEDS ORDERED: Piperacillin/Tazobactam 3.375 GM in Water for inj. (sterile) 20 ML IVP ONE (22:48)
[2017-12-13] MEDS ORDERED: 0.9 % Sodium Chloride 1,000 ML IVC ONE (23:24)
[2017-12-13] MEDS ORDERED: methylPREDNISolone 125 MG/2 ML VIAL IVP ONE (23:27)
[2017-12-13] MEDS ORDERED: methylPREDNISolone 125 MG/2 ML VIAL ONE (23:29)
[2017-12-13] MEDS ORDERED: 0.9 % Sodium Chloride 1,000 ML ONE (23:30)
[2017-12-13] MEDS: Vancomycin 750 MG in D5% in Water 250 ML IVPB ONE ×2 (23:31→23:37)
[2017-12-13] MEDS ORDERED: 0.9 % Sodium Chloride 1,000 ML IVC SCH (23:45)
[2017-12-13] MEDS ORDERED: Naloxone 0.4 MG/ML INJ IVP PRN (23:53)
[2017-12-14] MEDS ORDERED: Acetaminophen 325 MG TABLET PO PRN (00:16)
[2017-12-14] MEDS ORDERED: Ondansetron ODT 4 MG TAB.RAPDIS SL PRN (00:16)
[2017-12-14] MEDS ORDERED: Ipratropium/Albuterol Neb 3 ML IH PRN (00:30)
[2017-12-14] MEDS ORDERED: Albuterol 2.5 MG/3 ML NEBULIZER IH PRN ×2 (00:30→13:55)
--- NOTE | 2017-12-14 00:30 | Internal Med History&Physical ---
<Beck Christina - Last Filed: 12/14/17 03:20> Date of Encounter: 12/14/17 Time of Encounter: 23:45 Assessment and Plan (1) HCAP (healthcare-associated pneumonia) Current visit: Yes Status: Acute Recently discharged from [facility] cont vancomycin and Zosyn monitoring continuous pulse ox supplementary 02 as needed to maintain adequate saturation albuterol nebulizers Q2 hours as needed for wheezing and shortness of air (2) Diastolic heart failure Current visit: Yes Status: Acute Echocardiogram done on 12/01/2017 demonstrates undifferentiated diastolic failure with preserved left ventricular ejection fraction mild increasing shortness of air as well as notably increased pedal edema per patient patient given single-dose of Lasix which precipitated presenting complaint of urinary retention; patient is currently catheterized placed patient on fluid restriction/cardiac diet Qualifiers: Heart failure chronicity: acute on chronic Qualified Code(s): I50.33 - Acute on chronic diastolic (congestive) heart failure (3) Troponin I above reference range Current visit: No Status: Acute Likely secondary to acute exacerbation of CHF no retro sternal chest pain or other ACS equivalent symptoms recheck troponin in AM (4) Acute urinary retention Current visit: Yes Status: Acute UA support of a possible associated UTI Lacy catheter in place urine culture pending Urology consult ordered (5) UTI (urinary tract infection) Current visit: No Status: Acute UA support of a possible associated UTI Lacy catheter in place urine culture pending Urology consult ordered Qualifiers: Urinary tract infection type: site unspecified Hematuria presence: with hematuria Qualified Code(s): N39.0 - Urinary tract infection, site not specified; R31.9 - Hematuria, unspecified; R31.9 - Hematuria, unspecified (6) Hypokalemia Current visit: No Status: Acute 20 mEq oral supplemental potassium to be given BID will recheck basic panel in the morning (7) Squamous cell carcinoma of left lung Current visit: No Status: Chronic As stated above, patient has opted out of any treatment concerning this diagnosis and wishes to consider palliative care/hospice will obtain consult in the morning (8) COPD (chronic obstructive pulmonary disease) Current visit: No Status: Chronic Baseline 02 dependent continue supplementary 02 via nasal cannula as needed to maintain saturations above 90 albuterol nebulizers to be given every 2 hours as needed for wheezing or shortness of air opted not to order duo nubs due to stated adverse reaction to tiotropium Qualifiers: COPD type: unspecified COPD Qualified Code(s): J44.9 - Chronic obstructive pulmonary disease, unspecified (9) DVT prophylaxis Current visit: No Status: Acute SCDs Patient does not wish to be on anticoagulants Internal Medicine - H&P: HPI Chief complaint: Urinary Retention Admitted From: Emergency Dept History of present illness: Mr. Ho is a 82 year old male who, though initially presented to the ED for acute urinary retention following initial dose of Lasix, is being admitted to the medical floor for end-stage lung cancer as well as bilateral lobar HCAP. Notable history includes admission to the [facility] within the past 2 weeks for apparent myocardial infarction. Patient states that in the last couple of days, he has developed a lateral pedal edema; his doctor started him on Lasix this afternoon and patient since developed severe suprapubic pain. Lacy catheter was placed in the ED relieving patient of over half liter of urine, clear and yellow in quality. Concurrent workup demonstrated elevated white count, elevated troponin, elevated BNP, UA findings consistent with UTI ( culture pending), and a CXR demonstrating bilateral lobar infiltrates suggestive of pneumonic process. Patient denies any fevers, chills, sweats, worsening cough, increased sputum production, retrosternal chest pain, diaphoresis, nausea, vomiting, dysuria, hematuria. Patient has known history of lung cancer diagnosed approximately January 2017; patient has willingly sought no treatment for this condition and is interested in discussing hospice care with the palliative service during his present admission. Patient explicitly declines any measures be taken in the event of cardiac arrest, declines intubation, and declines any pressure airway maintenance including CPAP or BiPAP. Patient does, however, wish to continue other acute treatments at this time e.g., antibiotics, maintenance fluids, and maintenance of urinary tract with Lacy catheter. Past Med Surg Social Fam HX - Past Medical History Medical history: asthma, cancer, COPD, GERD, hyperlipidemia, hypertension, peripheral artery disease, other Psychiatric history: anxiety - Past Surgical History Surgical History: vascular surgery - Social History Smoking Status: Former smoker Smokeless Tobacco Status: No Alcohol use: none Drug use: none - Family History Brother Family Member Ethnicity: Non- Living Status: Hx Family Cardiac Disorders: Yes (5x CABG, CAD, HTN, HLD) Hx Family Respiratory Disorders: No Hx Family Cancer: No Hx Family GI Disorders: No Hx Family Endocrine Disorder: No Hx Family Neuromuscular Disorders: No Hx Family Neurologic Disorders: No Hx Family HEENT Disorders: No Hx Family Autoimmune Disorders: No Mother Adopted: No Family Member Ethnicity: Non- Living Status: Hx Family Cardiac Disorders: Yes (CHF) Father Adopted: No Family Member Ethnicity: Non- Living Status: Hx Family Cardiac Disorders: Yes (Stroke) Sister Adopted: No Family Member Ethnicity: Non- Living Status: Hx Family Cancer: Yes (Melanoma) Internal Medicine - H&P: Meds Aspirin 81 mg PO QAM 08/08/15 [History] Mometasone Furoate [Asmanex Hfa] 1 puff IH BID 08/08/15 [History] Olodaterol HCl [Striverdi Respimat] 2 puff IH DAILY 10/27/16 [History] Roflumilast [Daliresp] 500 mcg PO DAILY 06/04/17 [History] Secukinumab [Cosentyx Pen] 300 mg SQ QMONTH 06/04/17 [History] Carboxymethylcellulose Sodium [Refresh Liquigel] 1 drop BOTH EYES BID PRN [History] Lactose-Reduced Food [Ensure Plus] 1 bottle PO DAILY 12/01/17 [History] Levalbuterol [Xopenex INH] 2 puff IH Q6H PRN 12/01/17 [History] Losartan [Cozaar] 25 mg PO BID 12/01/17 [History] Naproxen [Naprosyn] 500 mg PO BID PRN 12/01/17 [History] Omeprazole [PriLOSEC] 20 mg PO BIDAC 12/01/17 [History] predniSONE [PredniSONE] See Taper PO DAILY 12/01/17 [History] Zutltmfmlply-Mmfb-Szfnkvug,Iso [Zosyn 3.375 gm/50 ml Galaxy] 3.375 gm IV Q8H 10 Days #30 froz.piggy 12/05/17 [Rx] dilTIAZem HCl [Cardizem] 120 mg PO DAILY #60 tablet 12/05/17 [Rx] 3 Allergy/AdvReac Type Severity Reaction Status Date / Time budesonide [From Symbicort] Allergy Swelling Verified 11/25/17 23:35 of Lip/Tongue/Throat ceftriaxone Allergy See Verified 11/25/17 23:35 Comments codeine Allergy Rash Verified 11/25/17 23:35 levofloxacin Allergy Rash Verified 11/25/17 23:35 moxifloxacin Allergy Anaphylaxis Verified 11/25/17 23:35 tiotropium Allergy Swelling Verified 11/25/17 23:35 [From Spiriva with of HandiHaler] Lip/Tongue/Throat doxycycline AdvReac unable to Verified 11/25/17 23:35 take due to psoriasis medicine All Systems PM: A 10-system review of systems was performed and is negative for pertinent findings except as documented above in the HPI. Review of systems: As per HPI - Constitutional Vitals: Temp Pulse Resp BP Pulse Ox 98.3 F 109 22 120/71 89 12/13/17 21:26 12/13/17 23:27 12/13/17 23:47 12/13/17 23:47 12/13/17 23:35 General appearance: Present: cachectic, A&O X 3, answers questions appropriately Exam: CONSTITUTIONAL: Alert and oriented X3, well-nourished, well appearing, in no apparent distress HEAD: Normocephalic; atraumatic. EYES: PERRL, no scleral icterus, no drainage, no conjunctival injection RESP: on exam, patient is using 3 L voted via nasal cannula and saturating well in the mid-90s; also receiving albuterol breathing treatment at the same time. Patient is able to speak full sentences without any interruptions were apparent distress. No apparent use of accessory musculature. Expiratory wheeze is heard throughout on auscultation. Rhonchi bilaterally. CARD: heart sounds distant, no murmurs heard, regular rhythm ABD: soft, nontender EXT: 2+ pedal edema bilaterally PSYCH: appropriate mood/affect Internal Med - H&P Results - Labs CBC & Chem 7: 12/13/17 21:46 12/13/17 21:46 <Yaneli Seaman - Last Filed: 12/14/17 06:07> Date of Encounter: 12/14/17 Time of Encounter: 05:15 Internal Medicine - H&P: HPI History of present illness: Mr. Ho is a 82 year old male All Systems PM: A 10-system review of systems was performed and is negative for pertinent findings except as documented above in the HPI. - Constitutional Vitals: Temp Pulse Resp BP Pulse Ox 97.4 F L 86 20 132/70 99 12/14/17 04:26 12/14/17 04:26 12/14/17 04:26 12/14/17 04:26 12/14/17 04:26 Internal Med - H&P Results - Labs CBC & Chem 7: 12/13/17 21:46 12/13/17 21:46 - Attending Attestation Patient is an 82y/o male admitted for HCAP, UTI, urinary retention. Pt seen and examined at bedside. Will continue broad spectrum IV abx Lacy support please call urology consult in am pt wishes to get hospice care, please call palliative care consult in am history of CHF, currently euvolemic, continue home dose of lasix Case discussed with resident physician Beck Christina, I agree with his documented findings, assessment, and plan except as listed above.
[2017-12-14] MEDS: Piperacillin/Tazobactam 3.375 GM/200 ML BAG IVPB SCH ×2 (04:17→12:25)
[2017-12-14 04:49] LABS: Adenovirus Not Detected (Not Detect); Coronavirus 229E Not Detected (Not Detect); Coronavirus HKU1 Not Detected (Not Detect); Coronavirus NL63 Not Detected (Not Detect); Coronavirus OC43 Not Detected (Not Detect); Human Metapneumovirus Not Detected (Not Detect)
[2017-12-14 04:50] LABS: Human Rhinovirus/Enterovirus Not Detected (Not Detect)
[2017-12-14 04:51] LABS: Bordetella Pertussis Not Detected (Not Detect); Chlamydophila pneumoniae Not Detected (Not Detect); Influenza A Subtype 2009 H1 Not Detected (Not Detect); Influenza A Untypeable ***DETECTED*** (Not Detect); Influenza B Not Detected (Not Detect); Mycoplasma pneumoniae Not Detected (Not Detect); Parainfluenza Virus 1 Not Detected (Not Detect); Parainfluenza Virus 2 Not Detected (Not Detect); Parainfluenza Virus 3 Not Detected (Not Detect); Parainfluenza Virus 4 Not Detected (Not Detect); Respiratory Syncytial Virus Not Detected (Not Detect)
[2017-12-14 06:38] LABS: BUN/Creatinine Ratio 26 (6-26); Blood Urea Nitrogen 26 mg/dL (8-23); Calcium 8.5 mg/dL (8.6-10.3); Carbon Dioxide 37 mEq/L (23-29); Chloride 98 mEq/L (98-107); Glucose 171 mg/dL (70-105); Magnesium 1.5 mg/dL (1.6-2.6); Osmolality,Calculated 307 (280-300); Phosphorous 3.5 mg/dL (2.7-4.5); Sodium 144 mEq/L (136-145); eGFR For African Americans > 60 (> 60); eGFR For Non-African Americans > 60 (> 60)
[2017-12-14 06:43] LABS: Basophils % 0.2 %; Hematocrit 35.5 % (37.5-50.1); Immature Granulocytes % 1.1 % (0-4); Lymphocytes # 0.3 K/mcL (0.6-4.6); Mean Corpuscular Hemoglobin 28.9 pg (28.0-33.3); Mean Corpuscular Volume 93.4 fL (83.0-100.0); Mean Platelet Volume 12.7 fL (9.4-12.4); Monocytes # 0.2 K/mcL (0.0-1.3); Monocytes % 0.9 %; Neutrophils # 15.9 K/mcL (1.6-8.9); Platelet Count 185 K/mcL (140-400); Red Cell Distribution Width 14.8 % (11.5-14.5); Segmented Neutrophils % 95.8 %
[2017-12-14] MEDS: Albuterol 2.5 MG/3 ML NEBULIZER IH PRN ×3 (09:00→13:47)
--- NOTE | 2017-12-14 09:39 | Event Note ---
Date of Encounter: 12/14/17 Time of Encounter: 09:38 Seen and evaluated at bedside 82 M with PMH of Lung CA, COPD, admitted and being managed for HCAP, CHFpEF exacerbation , elevated troponin, suspected UTI, acute urinary retention Patient has no new complains Continue current care Palliative eval on request.
--- NOTE | 2017-12-14 11:14 | Electrocardiograph Report ---
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
--- NOTE | 2017-12-14 12:52 | Internal Med Progress Note ---
Date of Encounter: 12/14/17 Time of Encounter: 12:50 - Assessment and plan (1) Acute urinary retention Current Visit: Yes Status: Acute Assessment and plan: Continue Lacy Urology eval prior to discharge (2) Diastolic heart failure Current Visit: Yes Status: Acute Assessment and plan: Echocardiogram done on 12/01/2017 demonstrates undifferentiated diastolic failure with preserved left ventricular ejection fraction mild increasing shortness of air as well as notably increased pedal edema per patient placed patient on fluid restriction/cardiac diet strict I/Os Continue home meds, add po lasix Qualifiers: Heart failure chronicity: acute on chronic Qualified Code(s): I50.33 - Acute on chronic diastolic (congestive) heart failure (3) Elevated troponin Current Visit: Yes Status: Acute (4) HCAP (healthcare-associated pneumonia) Current Visit: Yes Status: Acute Assessment and plan: Recently treated for pseudomonas and klebsiella PNA Continue vanco, Zosyn Follow cultures (5) Lung cancer Current Visit: Yes Status: Chronic Assessment and plan: Palliative eval, requested hospice placement Qualifiers: Laterality: unspecified laterality Lung location: unspecified part of lung Qualified Code(s): C34.90 - Malignant neoplasm of unspecified part of unspecified bronchus or lung (6) CKD (chronic kidney disease) stage 3, GFR 30-59 ml/min Current Visit: Yes Status: Chronic Assessment and plan: Renal function at baseline (7) UTI (urinary tract infection) Current Visit: Yes Status: Acute Assessment and plan: Suspected, follow cultures, continue antibiotics meanwhile Qualifiers: Urinary tract infection type: site unspecified Hematuria presence: with hematuria Qualified Code(s): N39.0 - Urinary tract infection, site not specified; R31.9 - Hematuria, unspecified; R31.9 - Hematuria, unspecified (8) HTN (hypertension) Current Visit: Yes Status: Chronic Assessment and plan: Controlled, resume home meds after confirmation Qualifiers: Hypertension type: essential hypertension Qualified Code(s): I10 - Essential (primary) hypertension (9) Influenza Current Visit: Yes Status: Acute Assessment and plan: start tamiflu supportive care - Subjective Interval history: Seen and evaluated at bedside Admitted and being managed for urinary retention, HCAP, Suspected UTI, elevated troponin, influenza No new complains Requesting palliative eval for possible home hospice for his untreated lung malignancy - Constitutional Vitals: Temp Pulse Resp BP Pulse Ox 97.5 F L 94 17 108/68 90 12/14/17 10:35 12/14/17 10:35 12/14/17 10:35 12/14/17 10:35 12/14/17 10:35 General appearance: Present: cachectic, A&O X 3, no acute distress, answers questions appropriately - Head Head exam: Present: atraumatic, normocephalic - Eye Eye exam: Present: PERRL, conjuntiva pink, sclera anicteric Pupils: Present: PERRL - ENT ENT exam: Present: mucous membranes moist - Respiratory Additional comments: diffuse widespread rhonchi - Cardiovascular Cardiovascular exam: Present: RRR, +S1, +S2. Absent: diastolic murmur, gallop, rubs, systolic murmur - GI/Abdominal GI/Abdominal exam: Present: normal bowel sounds, soft, no peritoneal signs. Absent: distended, tenderness - Extremities Exam Extremities exam: Present: pedal edema (trace), warm, radial pulses palpable and symmetrical. Absent: calf tenderness, cyanotic - Neurological Exam Neurological exam: Present: alert, CN II-XII intact, oriented X3, no focal deficits. Absent: pronater drift, facial droop, speech deficit - Skin Skin exam: Present: dry, intact Internal Medicine: Result - Labs CBC & Chem 7: 12/14/17 05:49 12/14/17 05:49 Labs: Short CBC 12/14/17 Range/Units 05:49 WBC 16.6 H (4.3-11.1) K/mcL Hgb 11.0 L D (12.9-16.9) g/dL Hct 35.5 L (37.5-50.1) % Plt Count 185 (140-400) K/mcL Neutrophils # 15.9 H (1.6-8.9) K/mcL BMP 12/14/17 05:49 Sodium 144 Potassium 4.0 Chloride 98 Carbon Dioxide 37 H BUN 26 H Creatinine 1.00 Glucose 171 H Calcium 8.5 L Cardiac Enzymes 12/14/17 Range/Units 05:49 Troponin I 0.10 H* (< 0.04) ng/mL Consult Discharge Plan - Plan [facility]Primary Care Provider[facility] -
--- NOTE | 2017-12-14 14:06 | Pallative History & Physical ---
<Agus Hernandez - Last Filed: 12/14/17 13:49> Date of Encounter: 12/14/17 Time of Encounter: 10:00 Assessment and Plan (1) HCAP (healthcare-associated pneumonia) Current visit: Yes Status: Acute Patient appears comfortable and in no acute distress. Patient is afebrile. Patient was recently discharged from the [place] hospital. Per radiology report, chest xray reads small new vague infiltrate within the right lower lobe and left mid lung, which may represent pneumonia. 1. Will continue Vancomysin and Zoysn. 2. Continuous pulse ox monitoring. 3. Supplementary oxygen as needed to maintain adequate oxygen saturation. 4. Albuterol nebulizers as needed for wheezing and shortness of breath. (2) Lung cancer Current visit: Yes Status: Chronic Patient confirms that he does not want any treatment for his lung cancer and would like to be considered for palliative and/or hospice. Code status was discussed with the patient by Dr. Angela and patient agrees to have his code status changed to DNR-Comfort Care. Qualifiers: Laterality: unspecified laterality Lung location: unspecified part of lung Qualified Code(s): C34.90 - Malignant neoplasm of unspecified part of unspecified bronchus or lung (3) UTI (urinary tract infection) Current visit: Yes Status: Acute UA indicates a possible associated UTI. Waters catheter in place and urine culture still pending. Qualifiers: Urinary tract infection type: site unspecified Hematuria presence: with hematuria Qualified Code(s): N39.0 - Urinary tract infection, site not specified; R31.9 - Hematuria, unspecified; R31.9 - Hematuria, unspecified (4) Troponin I above reference range Current visit: Yes Status: Acute Patient appears in no acute distress. Elevated troponins likely secondary to CHF exacerbation. Initial troponins was 0.15 and repeat troponins was 0.10. Troponins are trending down. Patient denies any chest pain or other ACS equivalent symptoms. (5) Urinary retention Current visit: Yes Status: Acute UA indicates possible UTI. Waters catheter removed half a liter of urine. Patient admits immediate relief. Patient still admits suprapubic tenderness only to palpation. Will continue to monitor the patient closely. (6) Diastolic heart failure Current visit: Yes Status: Acute Patient appears in no acute distress. Patient admits shortness of breath is at baseline. Increased pedal edema bilatearlly on exam. Echocardiogram done on 01/2018 demonstrates undifferentiated diastolic failure with preserved left ventricular ejection fraction. Patient is currently catheterized and placed patient on fluid restriction/cardiac diet. Continue to monitor the patient closely. Qualifiers: Heart failure chronicity: acute on chronic Qualified Code(s): I50.33 - Acute on chronic diastolic (congestive) heart failure (7) Influenza Current visit: Yes Status: Acute Patient was positive for Influenza A. Will continue patient on tamiflu and give supportive care. (8) COPD (chronic obstructive pulmonary disease) Current visit: No Status: Chronic Patient is comfortable and appears in no acute distress. Patient is on 2L of oxygen at home. Will continue supplementary 02 via nasal cannula as needed to maintain saturations above 90. Give albuterol nebulizers every 2 hours as needed for wheezing or shortness of breath. Opted not to order duo nubs due to stated adverse reaction to tiotropium Qualifiers: COPD type: unspecified COPD Qualified Code(s): J44.9 - Chronic obstructive pulmonary disease, unspecified Internal Medicine - H&P: HPI Chief complaint: Urinary retention and HCAP Admitted From: Emergency Dept History of present illness: Mr. Ho is a 82 year old male with a past medical history of COPD and end- stage lung cancer who initially presented to the ED for acute urinary retention. Acute urinary retention was relieved after the waters catheter was placed and half a liter of urine was removed. Patient was then admitted for end- stage lung cancer and bilateral lobar HCAP. Palliative was consulted because the patient would like to be considered for palliative and/or hospice for his lung cancer. The patient has willingly sought no treatment for this condition and explicitly declines any measures be taken in the event of cardiac arrest. He also declines intubation and declines any pressure airway maintenance including CPAP or BiPAP. Patient does wish to continue other acute treatments such as fluids, Waters catheter, antibiotics, breathing treatments, etc. Concurrent workup demonstrated elevated white count, elevated troponin, elevated BNP, UA findings consistent with UTI, and a chest xray demonstrating bilateral lobar infiltrates suggestive of pneumonic process. Patient admits mild suprapubic pain and dysuria but admits it has significantly improved since admission. Patient denies any fevers, headaches, vision changes, chest pain, difficulty breathing, shortness of breath, abdominal pain, diarrhea, blood in stool, nausea and vomiting, numbness or tingling, and any weaknesses at this time Past Med Surg Social Fam HX - Past Medical History Medical history: asthma, cancer, COPD, GERD, hyperlipidemia, hypertension, peripheral artery disease, other Psychiatric history: anxiety - Past Surgical History Surgical History: vascular surgery - Social History Smoking Status: Former smoker Smokeless Tobacco Status: No Alcohol use: none Drug use: none - Family History Brother Family Member Ethnicity: Non- Living Status: Hx Family Cardiac Disorders: Yes (5x CABG, CAD, HTN, HLD) Hx Family Respiratory Disorders: No Hx Family Cancer: No Hx Family GI Disorders: No Hx Family Endocrine Disorder: No Hx Family Neuromuscular Disorders: No Hx Family Neurologic Disorders: No Hx Family HEENT Disorders: No Hx Family Autoimmune Disorders: No Mother Adopted: No Family Member Ethnicity: Non- Living Status: Hx Family Cardiac Disorders: Yes (CHF) Father Adopted: No Family Member Ethnicity: Non- Living Status: Hx Family Cardiac Disorders: Yes (Stroke) Sister Adopted: No Family Member Ethnicity: Non- Living Status: Hx Family Cancer: Yes (Melanoma) Internal Medicine - H&P: Meds Aspirin 81 mg PO QAM 08/08/15 [History] Mometasone Furoate [Asmanex Hfa] 1 puff IH BID 08/08/15 [History] Olodaterol HCl [Striverdi Respimat] 2 puff IH DAILY 10/27/16 [History] Roflumilast [Daliresp] 500 mcg PO DAILY 06/04/17 [History] Secukinumab [Cosentyx Pen] 300 mg SQ QMONTH 06/04/17 [History] Carboxymethylcellulose Sodium [Refresh Liquigel] 1 drop BOTH EYES BID PRN [History] Lactose-Reduced Food [Ensure Plus] 1 bottle PO DAILY 12/01/17 [History] Levalbuterol [Xopenex INH] 2 puff IH Q6H PRN 12/01/17 [History] Losartan [Cozaar] 25 mg PO BID 12/01/17 [History] Naproxen [Naprosyn] 500 mg PO BID PRN 12/01/17 [History] Omeprazole [PriLOSEC] 20 mg PO BIDAC 12/01/17 [History] Kcafacobocjw-Zeam-Uxfawfck,Iso [Zosyn 3.375 gm/50 ml Galaxy] 3.375 gm IV Q8H 10 Days #30 froz.piggy 12/05/17 [Rx] dilTIAZem HCl [Cardizem] 120 mg PO DAILY #60 tablet 12/05/17 [Rx] 3 Allergy/AdvReac Type Severity Reaction Status Date / Time budesonide [From Symbicort] Allergy Swelling Verified 11/25/17 23:35 of Lip/Tongue/Throat ceftriaxone Allergy See Verified 11/25/17 23:35 Comments codeine Allergy Rash Verified 11/25/17 23:35 levofloxacin Allergy Rash Verified 11/25/17 23:35 moxifloxacin Allergy Anaphylaxis Verified 11/25/17 23:35 tiotropium Allergy Swelling Verified 11/25/17 23:35 [From Spiriva with of HandiHaler] Lip/Tongue/Throat doxycycline AdvReac unable to Verified 11/25/17 23:35 take due to psoriasis medicine Palliative Care-Exam - Constitutional Vitals: Temp Pulse Resp BP Pulse Ox 97.5 F L 94 18 108/68 97 12/14/17 10:35 12/14/17 10:35 12/14/17 11:11 12/14/17 10:35 12/14/17 11:11 General appearance: Present: cooperative. Absent: no acute distress - Head Head Exam: Present: atraumatic - Eye Eye exam: Present: EOMI, normal appearance, PERRL Pupils: Present: PERRL - ENT ENT exam: Present: mucous membranes moist - Respiratory Respiratory exam: Present: decreased breath sounds, rhonchi (Diffuse ronchi heard all throughout lung kemp. ), wheezes. Absent: accessory muscle use, chest wall tenderness, respiratory distress, tachypnea Additional comments: Decreased breath sounds bilaterally. Patient has tight lung aeration. - Expanded Respiratory Exam Location: decreased breath sounds: Left, Right, Lower, rhonchi: Right, Left, Upper, Lower, wheezes: Left, Right, Upper, Lower - Cardiovascular Cardiovascular exam: Present: RRR. Absent: diastolic murmur, gallop, systolic murmur - GI/Abdominal Exam GI/Abdominal exam: Present: soft. Absent: distended, guarding, tenderness - Expanded Lower Extremities Exam Knee exam: Absent: ecchymosis, effusion, erythema, swelling, tenderness Lower Leg exam: Present: swelling (bilateral lower leg and pedal edema. +2 pitting edema bilaterally.). Absent: ecchymosis, erythema Neuro vascular tendon exam: Absent: motor deficit, pulse deficit, sensory deficit - Neurological Exam Neurological exam: Present: alert, CN II-XII intact, oriented X3. Absent: motor sensory deficit, pronater drift, facial droop, speech deficit - Expanded Neurological Exam Speech: Present: fluid speech. Absent: slurred, stutter Internal Medicine - H&P: Reslt - Labs CBC & Chem 7: 12/14/17 05:49 12/14/17 05:49 Labs: Short CBC 12/14/17 Range/Units 05:49 WBC 16.6 H (4.3-11.1) K/mcL Hgb 11.0 L D (12.9-16.9) g/dL Hct 35.5 L (37.5-50.1) % Plt Count 185 (140-400) K/mcL Neutrophils # 15.9 H (1.6-8.9) K/mcL BMP 12/14/17 05:49 Sodium 144 Potassium 4.0 Chloride 98 Carbon Dioxide 37 H BUN 26 H Creatinine 1.00 Glucose 171 H Calcium 8.5 L Cardiac Enzymes 12/14/17 Range/Units 05:49 Troponin I 0.10 H* (< 0.04) ng/mL Palliative Quality Palliative Quality: Screen for Code Status: Yes, Screen for Goals of Care: Yes, Screen for Pain: Yes, If Pain Regimen Started, Initiate Bowel Regimen: NA, Screen for Nausea/Vomitting: Yes Code Status: 12/13/17 23:53 Resuscitation Status: Active [RES] Routine Comment: per discussion with patient; no BiPAP/CPAP Resuscitation Status: DNR-Comfort Care <Andres Angela - Last Filed: 12/14/17 14:44> Date of Encounter: 12/14/17 Internal Medicine - H&P: HPI History of present illness: Mr. Ho is a 82 year old male Palliative Care-Exam - Constitutional Vitals: Temp Pulse Resp BP Pulse Ox 97.5 F L 94 18 108/68 97 12/14/17 10:35 12/14/17 10:35 12/14/17 11:11 12/14/17 10:35 12/14/17 11:11 Internal Medicine - H&P: Reslt - Labs CBC & Chem 7: 12/14/17 05:49 12/14/17 05:49 Labs: Short CBC 12/14/17 Range/Units 05:49 WBC 16.6 H (4.3-11.1) K/mcL Hgb 11.0 L D (12.9-16.9) g/dL Hct 35.5 L (37.5-50.1) % Plt Count 185 (140-400) K/mcL Neutrophils # 15.9 H (1.6-8.9) K/mcL BMP 12/14/17 05:49 Sodium 144 Potassium 4.0 Chloride 98 Carbon Dioxide 37 H BUN 26 H Creatinine 1.00 Glucose 171 H Calcium 8.5 L Cardiac Enzymes 12/14/17 Range/Units 05:49 Troponin I 0.10 H* (< 0.04) ng/mL Palliative Quality Code Status: 12/13/17 23:53 Resuscitation Status: Active [RES] Routine Comment: per discussion with patient; no BiPAP/CPAP Resuscitation Status: DNR-Comfort Care - Attending Attestation I examined this patient and my medical decision-making was reviewed with the Resident Physician. I agree with the documented findings, disposition and treatment plan as described except to the extent set forth below.
[2017-12-14 14:51] VITALS: BP 129/77
--- NOTE | 2017-12-14 15:31 | Discharge Summary ---
Date of Encounter: 12/14/17 Time of Encounter: 15:23 - Discharge Diagnosis (1) Acute urinary retention Priority: Primary Status: Acute (2) Diastolic heart failure Priority: Primary Status: Acute Qualifiers: Heart failure chronicity: acute on chronic Qualified Code(s): I50.33 - Acute on chronic diastolic (congestive) heart failure (3) Elevated troponin Priority: Primary Status: Acute (4) HCAP (healthcare-associated pneumonia) Priority: Primary Status: Acute (5) Lung cancer Priority: Secondary Status: Chronic Qualifiers: Laterality: unspecified laterality Lung location: unspecified part of lung Qualified Code(s): C34.90 - Malignant neoplasm of unspecified part of unspecified bronchus or lung (6) CKD (chronic kidney disease) stage 3, GFR 30-59 ml/min Priority: Secondary Status: Chronic (7) UTI (urinary tract infection) Priority: Primary Status: Acute Qualifiers: Urinary tract infection type: site unspecified Hematuria presence: with hematuria Qualified Code(s): N39.0 - Urinary tract infection, site not specified; R31.9 - Hematuria, unspecified; R31.9 - Hematuria, unspecified (8) HTN (hypertension) Priority: Secondary Status: Chronic Qualifiers: Hypertension type: essential hypertension Qualified Code(s): I10 - Essential (primary) hypertension (9) Influenza Priority: Primary Status: Acute (10) Sepsis Priority: Primary Status: Acute Qualifiers: Sepsis type: sepsis due to unspecified organism Qualified Code(s): A41.9 - Sepsis, unspecified organism - Discharge Medications Home Medications: Aspirin 81 mg PO QAM 08/08/15 [History] Mometasone Furoate [Asmanex Hfa] 1 puff IH BID 08/08/15 [History] Olodaterol HCl [Striverdi Respimat] 2 puff IH DAILY 10/27/16 [History] Roflumilast [Daliresp] 500 mcg PO DAILY 06/04/17 [History] Secukinumab [Cosentyx Pen] 300 mg SQ QMONTH 06/04/17 [History] Carboxymethylcellulose Sodium [Refresh Liquigel] 1 drop BOTH EYES BID PRN [History] Lactose-Reduced Food [Ensure Plus] 1 bottle PO DAILY 12/01/17 [History] Levalbuterol [Xopenex INH] 2 puff IH Q6H PRN 12/01/17 [History] Losartan [Cozaar] 25 mg PO BID 12/01/17 [History] Naproxen [Naprosyn] 500 mg PO BID PRN 12/01/17 [History] Omeprazole [PriLOSEC] 20 mg PO BIDAC 12/01/17 [History] Nkjsqcyupfdo-Cdma-Sghsiams,Iso [Zosyn 3.375 gm/50 ml Galaxy] 3.375 gm IV Q8H 10 Days #30 froz.piggy 12/05/17 [Rx] dilTIAZem HCl [Cardizem] 120 mg PO DAILY #60 tablet 12/05/17 [Rx] Furosemide [Lasix] 40 mg PO DAILY 12/14/17 [History] Ipratropium/Albuterol Neb [Duoneb] 3 ml IH Q4HR 12/14/17 [History] Simvastatin [Zocor] 40 mg PO HS 12/14/17 [History] Allergies/Adverse Reactions: 3 Allergy/AdvReac Type Severity Reaction Status Date / Time budesonide [From Symbicort] Allergy Swelling Verified 11/25/17 23:35 of Lip/Tongue/Throat ceftriaxone Allergy See Verified 11/25/17 23:35 Comments codeine Allergy Rash Verified 11/25/17 23:35 levofloxacin Allergy Rash Verified 11/25/17 23:35 moxifloxacin Allergy Anaphylaxis Verified 11/25/17 23:35 tiotropium Allergy Swelling Verified 11/25/17 23:35 [From Spiriva with of HandiHaler] Lip/Tongue/Throat doxycycline AdvReac unable to Verified 11/25/17 23:35 take due to psoriasis medicine Date of admission: 12/14/17 03:09 [facility] care physician[facility] Consults: 12/14/17 03:11 Consult to Urology [CONS] Routine Consulting Provider: Urology [facility] Reason for Consult: urinary retention Call Completed: Yes 12/14/17 12:49 Consult to Palliative Care [CONS] Routine Comment: Consulting Provider: [facility] [place] Reason for Consult: Patient requesting hospice Call Completed: No Discharging clinician: Juan Garcia Anticipated date of discharge: 12/14/17 - Patient Status Disposition: Left Against Medical Advice Condition: Fair Functional capacity at discharge: independent ambulation Overall status at discharge: patient is not back to baseline - Discharge Instructions Follow Up With: [facility] [Primary Care Provider] - Interval History: See below Hospital course: 82-year-old male patient with a 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 The patient was discharged on December 05 with intravenous Zosyn for Klebsiella pneumonia. He is currently receiving treatment with vancomycin, Zosyn. He also has influenza infection. The patient requested to be placed on home hospice. He met sepsis criteria on admission with tachycardia, tachypnea, leukocytosis and a suspected UTI and Pneumonia Patient with multiple medication allergies He was sensitive discharged on intravenous Zosyn every 8 on December 05, however patient and his family state he has only had 2 days before he represented to the [facility]. At this time the patient is very agitated and irritated, he is able to listen to his diagnosis and possible risk of progression to severe sepsis/septic shock , resp failure/cardiac arrest/. He has requested to leave the hospital AGAINST MEDICAL ADVICE. He is alert oriented and able to make his own decisions. His son and son-in-law at the bedside report that the patient will do better at home. He does not wanting to be discharged with any medications, family states he will receive his medications from the [facility] Per palliative care SW , patient will be set up with home hospice - Time Spent with Patient Total time spent providing and/or coordinating discharge services: Greater than 30 minutes - Constitutional Vitals: Temp Pulse Resp BP Pulse Ox 98.6 F 101 19 129/77 92 12/14/17 14:50 12/14/17 14:50 12/14/17 14:50 12/14/17 14:50 12/14/17 14:50 General appearance: Present: cachectic, A&O X 3, no acute distress, severe distress, answers questions appropriately - Head Head exam: Present: atraumatic, normocephalic - Eye Eye exam: Present: PERRL, conjuntiva pink, sclera anicteric Pupils: Present: PERRL - Neck Neck exam general surgery: Present: supple, trachea midline. Absent: lymphadenopathy - Respiratory Respiratory exam: Present: rhonchi (diffuse rhonchi). Absent: accessory muscle use, rales, wheezes - Cardiovascular Cardiovascular exam: Present: RRR, +S1, +S2. Absent: diastolic murmur, gallop, rubs, systolic murmur - GI/Abdominal GI/Abdominal exam: Present: normal bowel sounds, soft, no peritoneal signs. Absent: distended, tenderness - Extremities Exam Extremities exam: Present: pedal edema, warm, radial pulses palpable and symmetrical. Absent: calf tenderness, cyanotic - Neurological Exam Neurological exam: Present: alert, CN II-XII intact, oriented X3, no focal deficits. Absent: pronater drift, facial droop, speech deficit - Skin Skin exam: Present: dry, intact
--- NOTE | 2017-12-14 15:34 | Physician Discharge Referral ---
Home Health/Hosp Referral Info Transfer to: Hospice Attending Provider: James Garcia Provider in Charge Post Discharge: PCP - Diagnosis (1) Acute urinary retention Priority: Primary Status: Acute (2) Diastolic heart failure Priority: Primary Status: Acute (3) Elevated troponin Priority: Primary Status: Acute (4) HCAP (healthcare-associated pneumonia) Priority: Primary Status: Acute (5) Lung cancer Priority: Secondary Status: Chronic (6) CKD (chronic kidney disease) stage 3, GFR 30-59 ml/min Priority: Secondary Status: Chronic (7) UTI (urinary tract infection) Priority: Primary Status: Acute (8) HTN (hypertension) Priority: Secondary Status: Chronic (9) Influenza Priority: Primary Status: Acute (10) Sepsis Priority: Primary Status: Acute - Respiratory Orders Smoking Cessation: Smoking cessation has been advised. For more information, call the [place] Tobacco Quit Line at 6-067-NIWE-NOW. - Transfer Medications Home Medications: Aspirin 81 mg PO QAM 08/08/15 [History] Mometasone Furoate [Asmanex Hfa] 1 puff IH BID 08/08/15 [History] Olodaterol HCl [Striverdi Respimat] 2 puff IH DAILY 10/27/16 [History] Roflumilast [Daliresp] 500 mcg PO DAILY 06/04/17 [History] Secukinumab [Cosentyx Pen] 300 mg SQ QMONTH 06/04/17 [History] Carboxymethylcellulose Sodium [Refresh Liquigel] 1 drop BOTH EYES BID PRN [History] Lactose-Reduced Food [Ensure Plus] 1 bottle PO DAILY 12/01/17 [History] Levalbuterol [Xopenex INH] 2 puff IH Q6H PRN 12/01/17 [History] Losartan [Cozaar] 25 mg PO BID 12/01/17 [History] Naproxen [Naprosyn] 500 mg PO BID PRN 12/01/17 [History] Omeprazole [PriLOSEC] 20 mg PO BIDAC 12/01/17 [History] Chbgcopzfhsb-Ieck-Tviqphoe,Iso [Zosyn 3.375 gm/50 ml Galaxy] 3.375 gm IV Q8H 10 Days #30 froz.piggy 12/05/17 [Rx] dilTIAZem HCl [Cardizem] 120 mg PO DAILY #60 tablet 12/05/17 [Rx] Furosemide [Lasix] 40 mg PO DAILY 12/14/17 [History] Ipratropium/Albuterol Neb [Duoneb] 3 ml IH Q4HR 12/14/17 [History] Simvastatin [Zocor] 40 mg PO HS 12/14/17 [History] Allergies/Adverse Reactions: 3 Allergy/AdvReac Type Severity Reaction Status Date / Time budesonide [From Symbicort] Allergy Swelling Verified 11/25/17 23:35 of Lip/Tongue/Throat ceftriaxone Allergy See Verified 11/25/17 23:35 Comments codeine Allergy Rash Verified 11/25/17 23:35 levofloxacin Allergy Rash Verified 11/25/17 23:35 moxifloxacin Allergy Anaphylaxis Verified 11/25/17 23:35 tiotropium Allergy Swelling Verified 11/25/17 23:35 [From Spiriva with of HandiHaler] Lip/Tongue/Throat doxycycline AdvReac unable to Verified 11/25/17 23:35 take due to psoriasis medicine Certification: Further, I certify that my clinical findings support that this patient is homebound (i.e. absences from home require considerable and taxing effort and are for medical reasons or [facility] or infrequently or short duration when for other reasons) because: Homebound Reason: Patient requires assistance of a person or device to safely leave home, Severity of cardiac or pulmonary status limits activity tolerance Attestation: My signature below is to certify that this patient is under my care and that I, or nurse practitioner, or a physician's podiatric assistant working with me, has a face-to -face encounter with this patient.
[2017-12-14] MEDS ORDERED: Aminoglycoside Consult 1 EACH MC ONE (15:59)
[2017-12-14] MEDS ORDERED: *HR* Heparin 5,000 UNIT/ML VIAL SQ SCH (18:00)
[2017-12-14] MEDS ORDERED: Vancomycin 750 MG in D5% in Water 250 ML IVPB SCH ×2 (21:00→23:00)
[2017-12-14] MEDS ORDERED: Oseltamivir Phosphate 30 MG CAPSULE PO SCH (21:00)
[2017-12-15] MEDS ORDERED: Furosemide 40 MG TABLET PO SCH (09:00)
== END 2017-12-14 16:00 | disposition left against medical advice (07) | DRG 871 ==
LOC: EMEROO 21:18 → 2ANU 21:18 → SUATTDRO 12-14 03:09
PROVIDERS: ADMIT Internal Medicine; ATTEND Internal Medicine